=== PATIENT | male | born 1990 | race Caucasian/White ===

== ENCOUNTER 2017-08-06 14:50 | Inpatient (IN) ==
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
[2017-08-06] MEDS ORDERED: *HR* LORazepam 2 MG/ML VIAL IVP ONE (15:54)
[2017-08-06] MEDS ORDERED: Haloperidol Lactate 5 MG/ML VIAL IM ONE ×3 (15:54→16:03)
[2017-08-06] MEDS ORDERED: Haloperidol Lactate 5 MG/ML VIAL ONE (15:54)
[2017-08-06] MEDS ORDERED: *HR* LORazepam 2 MG/ML VIAL ONE (15:55)
[2017-08-06 15:58] LABS: Amphetamine Screen,Urine Negative ng/mL (Cutoff=1000); Barbiturate Screen,Urine Negative ng/mL (Cutoff=200); Benzodiazepines Screen,Urine Negative ng/mL (Cutoff=200); Cannabinoid Screen,Urine Positive ng/mL (Cutoff = 50); Cocaine Screen,Urine Negative ng/mL (Cutoff= 300); Opiate Screen,Urine Negative ng/mL (Cutoff=300); Phencyclidine Screen,Urine Negative ng/mL (Cutoff=25)
[2017-08-06] MEDS ORDERED: *HR* Ketamine 500 MG/5 ML MDV IVP ONE (15:59)
[2017-08-06] MEDS ORDERED: Ketamine *HR* 500 MG/10 ML MDV IM ONE ×2 (15:59→17:45)
[2017-08-06 16:04] LABS: Basophils % 0.3 %; Eosinophils % 0.2 %; Hematocrit 42.8 % (37.5-50.1); Hemoglobin 14.8 g/dL (12.9-16.9); Immature Granulocytes % 0.3 % (0-4); Lymphocytes # 1.2 K/mcL (0.6-4.6); Lymphocytes % 11.7 %; Mean Corpuscular HGB Conc 34.6 g/dL (31.6-35.5); Mean Corpuscular Hemoglobin 30.6 pg (28.0-33.3); Mean Corpuscular Volume 88.6 fL (83.0-100.0); Monocytes # 0.7 K/mcL (0.0-1.3); Monocytes % 6.8 %; Platelet Count 310 K/mcL (140-400); Red Blood Count 4.83 M/mcL (4.19-5.50); Red Cell Distribution Width 12.8 % (11.5-14.5); Segmented Neutrophils % 80.7 %
[2017-08-06 16:22] LABS: Acetaminophen < 10 mcg/mL (10-20)
[2017-08-06 16:29] LABS: BUN/Creatinine Ratio 21 (6-26); Blood Urea Nitrogen 15 mg/dL (6-20); Carbon Dioxide 25 mEq/L (23-29); Chloride 108 mEq/L (98-107); Ethanol < 10 mg/dL (Less than 10); Glucose 107 mg/dL (70-105); Osmolality,Calculated 295 (280-300); Potassium 3.5 mEq/L (3.5-5.1); Salicylate < 2.5 mg/dL (15.0-30.0); Sodium 142 mEq/L (136-145); eGFR For African Americans > 60 (> 60); eGFR For Non-African Americans > 60 (> 60)
[2017-08-06 16:30] LABS: Color,Urine Dark Yellow (Yellow)
[2017-08-06 16:31] LABS: Bilirubin,Urine Small (Negative); Blood,Urine Negative (Negative); Clarity,Urine Clear (Clear); Glucose,Urine (UA) Normal (Normal); Ketones,Urine 80 mg/dL (Negative); Specific Gravity,Urine > 1.030 (1.010-1.025)
[2017-08-06 16:32] LABS: Leukocyte Esterase,Urine Negative (Negative); Nitrite,Urine Negative (Negative); Protein,Urine 30 mg/dL (Neg-Trace); Urobilinogen,Urine Normal (Normal)
[2017-08-06 16:44] LABS: Mucus,Urine Many (Few); Squamous Epithelial Cell,Urine Few per lpf (None-Few)
[2017-08-06] MEDS ORDERED: *HR* Ketamine 500 MG/5 ML MDV IM ONE (17:27)
[2017-08-06] MEDS ORDERED: OLANZapine 10 MG TAB.RAPDIS PO STA (20:42)
--- NOTE | 2017-08-06 22:38 | Emergency Department Note ---
Disposition Clinical Impression: Hallucination Disposition: Still a Patient Referrals: NONE,PCP [Primary Care Provider] - Forms: ED Satisfaction Letter General Adult HPI - General Chief complaint: ED Medical Clearance Stated complaint: Medical Clearance for 1A Time Seen by Provider: 08/06/17 14:57 Source: patient Limitations: no limitations - History of Present Illness Pain Scale: 7 - Related Data Home Medications Medication Instructions Recorded Confirmed Gabapentin [Neurontin] 600 mg PO TID 06/04/17 06/04/17 Previous Rx's Medication Instructions Recorded OLANZapine [Zyprexa] 5 mg PO HS #30 tablet 06/06/17 hydrOXYzine pamoate [HydrOXYzine 25 mg PO TID PRN #90 capsule 06/06/17 Pamoate] traZODone [TraZODone] 50 mg PO HS PRN #30 tablet 06/06/17 Allergies Allergy/AdvReac Type Severity Reaction Status Date / Time No Known Allergies Allergy Verified 11/02/15 22:18 Past Medical History - Past Medical History Medical history: Reports: no medical history, fibromyalgia, hyperlipidemia Surgical history: Reports: herniorrhaphy Psychiatric history: Reports: no psych history - Social History Smoking Status: Current every day smoker Smokeless Tobacco Status: No Alcohol use: Reports: none Drug use: Reports: marijuana, methamphetamine Physical Exam - General Limitations: no limitations General appearance: alert, in no apparent distress Course Vital Signs Temperature 98.4 F 08/06/17 14:53 Pulse Rate 112 08/06/17 14:53 Respiratory Rate 18 08/06/17 14:53 Blood Pressure 151/86 08/06/17 14:53 O2 Sat by Pulse Oximetry 100 08/06/17 14:53 Temperature 98.4 F 08/06/17 14:53 Pulse Rate 108 08/06/17 19:43 Respiratory Rate 22 08/06/17 19:43 Blood Pressure 148/89 08/06/17 19:43 O2 Sat by Pulse Oximetry 97 08/06/17 19:43 Oxygen Delivery Oxygen Delivery Room Air Medical Decision Making - Lab Data Result diagrams: 08/06/17 15:35 08/06/17 15:35 Lab Results 08/06/17 08/06/17 08/06/17 Range/Units 15:30 15:30 15:35 WBC 9.9 (4.3-11.1) K/mcL RBC 4.83 (4.19-5.50) M/mcL Hgb 14.8 (12.9-16.9) g/dL Hct 42.8 (37.5-50.1) % MCV 88.6 (83.0-100.0) fL MCH 30.6 (28.0-33.3) pg MCHC 34.6 (31.6-35.5) g/dL RDW 12.8 (11.5-14.5) % Plt Count 310 (140-400) K/mcL MPV 10.0 (9.4-12.4) fL Immature Gran % 0.3 (0-4) % Seg Neutrophils % 80.7 % Lymphocytes % 11.7 % Monocytes % 6.8 % Eosinophils % 0.2 % Basophils % 0.3 % Neutrophils # 8.0 (1.6-8.9) K/mcL Lymphocytes # 1.2 (0.6-4.6) K/mcL Monocytes # 0.7 (0.0-1.3) K/mcL Eosinophils # 0.0 (0.0-0.6) K/mcL Basophils # 0.0 (0.0-0.2) K/mcL Sodium (136-145) mEq/L Potassium (3.5-5.1) mEq/L Chloride (98-107) mEq/L Carbon Dioxide (23-29) mEq/L BUN (6-20) mg/dL Creatinine (0.70-1.30) mg/dL Est GFR ( Amer) (> 60) Est GFR (Non-Af Amer) (> 60) BUN/Creatinine Ratio (6-26) Glucose (70-105) mg/dL Calculated Osmolality (280-300) Calcium (8.6-10.3) mg/dL Urine Color Dark Yellow (Yellow) Urine Clarity Clear (Clear) Urine pH 6.0 (5.0-8.0) pH Units Ur Specific [place] > 1.030 H (1.010-1.025) Urine Protein 30 H (Neg-Trace) mg/dL Urine Glucose (UA) Normal (Normal) mg/dL Urine Ketones 80 H (Negative) mg/dL Urine Blood Negative (Negative) Urine Nitrite Negative (Negative) Urine Bilirubin Small H (Negative) Urine Urobilinogen Normal (Normal) mg/dL Ur Leukocyte Esterase Negative (Negative) Ur Squamous Epith Cells Few (None-Few) per lpf Urine Mucus Many H (Few) Salicylates (15.0-30.0) mg/dL Urine Opiates Screen Negative (Rcbugf=162) ng/mL Acetaminophen (10-20) mcg/mL Ur Barbiturates Screen Negative (Vbzhsg=261) ng/mL Ur Phencyclidine Scrn Negative (Cutoff=25) ng/mL Ur Amphetamines Screen Negative (Ejdhkc=9747) ng/mL U Benzodiazepines Scrn Negative (Exvguc=143) ng/mL Urine Cocaine Screen Negative (Cutoff= 300) ng/mL U Marijuana (THC) Screen Positive H (Cutoff = 50) ng/mL Ethyl Alcohol (Less than 10) mg/dL 08/06/17 Range/Units 15:35 WBC (4.3-11.1) K/mcL RBC (4.19-5.50) M/mcL Hgb (12.9-16.9) g/dL Hct (37.5-50.1) % MCV (83.0-100.0) fL MCH (28.0-33.3) pg MCHC (31.6-35.5) g/dL RDW (11.5-14.5) % Plt Count (140-400) K/mcL MPV (9.4-12.4) fL Immature Gran % (0-4) % Seg Neutrophils % % Lymphocytes % % Monocytes % % Eosinophils % % Basophils % % Neutrophils # (1.6-8.9) K/mcL Lymphocytes # (0.6-4.6) K/mcL Monocytes # (0.0-1.3) K/mcL Eosinophils # (0.0-0.6) K/mcL Basophils # (0.0-0.2) K/mcL Sodium 142 (136-145) mEq/L Potassium 3.5 (3.5-5.1) mEq/L Chloride 108 H (98-107) mEq/L Carbon Dioxide 25 (23-29) mEq/L BUN 15 (6-20) mg/dL Creatinine 0.72 (0.70-1.30) mg/dL Est GFR ( Amer) > 60 (> 60) Est GFR (Non-Af Amer) > 60 (> 60) BUN/Creatinine Ratio 21 (6-26) Glucose 107 H (70-105) mg/dL Calculated Osmolality 295 (280-300) Calcium 10.0 (8.6-10.3) mg/dL Urine Color (Yellow) Urine Clarity (Clear) Urine pH (5.0-8.0) pH Units Ur Specific [place] (1.010-1.025) Urine Protein (Neg-Trace) mg/dL Urine Glucose (UA) (Normal) mg/dL Urine Ketones (Negative) mg/dL Urine Blood (Negative) Urine Nitrite (Negative) Urine Bilirubin (Negative) Urine Urobilinogen (Normal) mg/dL Ur Leukocyte Esterase (Negative) Ur Squamous Epith Cells (None-Few) per lpf Urine Mucus (Few) Salicylates < 2.5 L (15.0-30.0) mg/dL Urine Opiates Screen (Rhmgoc=659) ng/mL Acetaminophen < 10 L (10-20) mcg/mL Ur Barbiturates Screen (Iyvbed=619) ng/mL Ur Phencyclidine Scrn (Cutoff=25) ng/mL Ur Amphetamines Screen (Kowdsy=9401) ng/mL U Benzodiazepines Scrn (Zliafv=621) ng/mL Urine Cocaine Screen (Cutoff= 300) ng/mL U Marijuana (THC) Screen (Cutoff = 50) ng/mL Ethyl Alcohol < 10 (Less than 10) mg/dL Attestation Statement - Attestation Attestation: accepted sign out from Dr. Candelario and the plan is to continue to monitoring until 1A has given clearance. Patient is sleeping at bedside and is drowasy secondary to medication. 1A will be back later to evaluate
--- NOTE | 2017-08-06 22:46 | Emergency Department Note ---
Disposition Clinical Impression: Hallucination, Altered mental status Disposition: Still a Patient Condition: Good Referrals: NONE,PCP [Primary Care Provider] - Forms: ED Satisfaction Letter General Adult HPI - General Chief complaint: ED Medical Clearance Stated complaint: Medical Clearance for 1A Time Seen by Provider: 08/06/17 14:57 Source: patient Limitations: no limitations - History of Present Illness Pain Scale: 7 - Related Data Home Medications Medication Instructions Recorded Confirmed Gabapentin [Neurontin] 600 mg PO TID 06/04/17 06/04/17 Previous Rx's Medication Instructions Recorded OLANZapine [Zyprexa] 5 mg PO HS #30 tablet 06/06/17 hydrOXYzine pamoate [HydrOXYzine 25 mg PO TID PRN #90 capsule 06/06/17 Pamoate] traZODone [TraZODone] 50 mg PO HS PRN #30 tablet 06/06/17 Allergies Allergy/AdvReac Type Severity Reaction Status Date / Time No Known Allergies Allergy Verified 11/02/15 22:18 Past Medical History - Past Medical History Medical history: Reports: no medical history, fibromyalgia, hyperlipidemia Surgical history: Reports: herniorrhaphy Psychiatric history: Reports: no psych history - Social History Smoking Status: Current every day smoker Smokeless Tobacco Status: No Alcohol use: Reports: none Drug use: Reports: marijuana, methamphetamine Physical Exam - General Limitations: no limitations General appearance: alert, in no apparent distress Course Vital Signs Temperature 98.4 F 08/06/17 14:53 Pulse Rate 112 08/06/17 14:53 Respiratory Rate 18 08/06/17 14:53 Blood Pressure 151/86 08/06/17 14:53 O2 Sat by Pulse Oximetry 100 08/06/17 14:53 Temperature 98.4 F 08/06/17 14:53 Pulse Rate 91 08/07/17 05:53 Respiratory Rate 16 08/07/17 05:53 Blood Pressure 113/70 08/07/17 05:53 O2 Sat by Pulse Oximetry 97 08/07/17 05:53 Oxygen Delivery Oxygen Delivery Room Air Medical Decision Making - Lab Data Result diagrams: 08/06/17 15:35 08/06/17 15:35 Lab Results 08/06/17 08/06/17 08/06/17 Range/Units 15:30 15:30 15:35 WBC 9.9 (4.3-11.1) K/mcL RBC 4.83 (4.19-5.50) M/mcL Hgb 14.8 (12.9-16.9) g/dL Hct 42.8 (37.5-50.1) % MCV 88.6 (83.0-100.0) fL MCH 30.6 (28.0-33.3) pg MCHC 34.6 (31.6-35.5) g/dL RDW 12.8 (11.5-14.5) % Plt Count 310 (140-400) K/mcL MPV 10.0 (9.4-12.4) fL Immature Gran % 0.3 (0-4) % Seg Neutrophils % 80.7 % Lymphocytes % 11.7 % Monocytes % 6.8 % Eosinophils % 0.2 % Basophils % 0.3 % Neutrophils # 8.0 (1.6-8.9) K/mcL Lymphocytes # 1.2 (0.6-4.6) K/mcL Monocytes # 0.7 (0.0-1.3) K/mcL Eosinophils # 0.0 (0.0-0.6) K/mcL Basophils # 0.0 (0.0-0.2) K/mcL Sodium (136-145) mEq/L Potassium (3.5-5.1) mEq/L Chloride (98-107) mEq/L Carbon Dioxide (23-29) mEq/L BUN (6-20) mg/dL Creatinine (0.70-1.30) mg/dL Est GFR ( Amer) (> 60) Est GFR (Non-Af Amer) (> 60) BUN/Creatinine Ratio (6-26) Glucose (70-105) mg/dL Calculated Osmolality (280-300) Calcium (8.6-10.3) mg/dL Urine Color Dark Yellow (Yellow) Urine Clarity Clear (Clear) Urine pH 6.0 (5.0-8.0) pH Units Ur Specific [place] > 1.030 H (1.010-1.025) Urine Protein 30 H (Neg-Trace) mg/dL Urine Glucose (UA) Normal (Normal) mg/dL Urine Ketones 80 H (Negative) mg/dL Urine Blood Negative (Negative) Urine Nitrite Negative (Negative) Urine Bilirubin Small H (Negative) Urine Urobilinogen Normal (Normal) mg/dL Ur Leukocyte Esterase Negative (Negative) Ur Squamous Epith Cells Few (None-Few) per lpf Urine Mucus Many H (Few) Salicylates (15.0-30.0) mg/dL Urine Opiates Screen Negative (Ykzeyn=843) ng/mL Acetaminophen (10-20) mcg/mL Ur Barbiturates Screen Negative (Gozced=424) ng/mL Ur Phencyclidine Scrn Negative (Cutoff=25) ng/mL Ur Amphetamines Screen Negative (Bfnzhs=4510) ng/mL U Benzodiazepines Scrn Negative (Kelvhd=902) ng/mL Urine Cocaine Screen Negative (Cutoff= 300) ng/mL U Marijuana (THC) Screen Positive H (Cutoff = 50) ng/mL Ethyl Alcohol (Less than 10) mg/dL 08/06/17 Range/Units 15:35 WBC (4.3-11.1) K/mcL RBC (4.19-5.50) M/mcL Hgb (12.9-16.9) g/dL Hct (37.5-50.1) % MCV (83.0-100.0) fL MCH (28.0-33.3) pg MCHC (31.6-35.5) g/dL RDW (11.5-14.5) % Plt Count (140-400) K/mcL MPV (9.4-12.4) fL Immature Gran % (0-4) % Seg Neutrophils % % Lymphocytes % % Monocytes % % Eosinophils % % Basophils % % Neutrophils # (1.6-8.9) K/mcL Lymphocytes # (0.6-4.6) K/mcL Monocytes # (0.0-1.3) K/mcL Eosinophils # (0.0-0.6) K/mcL Basophils # (0.0-0.2) K/mcL Sodium 142 (136-145) mEq/L Potassium 3.5 (3.5-5.1) mEq/L Chloride 108 H (98-107) mEq/L Carbon Dioxide 25 (23-29) mEq/L BUN 15 (6-20) mg/dL Creatinine 0.72 (0.70-1.30) mg/dL Est GFR ( Amer) > 60 (> 60) Est GFR (Non-Af Amer) > 60 (> 60) BUN/Creatinine Ratio 21 (6-26) Glucose 107 H (70-105) mg/dL Calculated Osmolality 295 (280-300) Calcium 10.0 (8.6-10.3) mg/dL Urine Color (Yellow) Urine Clarity (Clear) Urine pH (5.0-8.0) pH Units Ur Specific [place] (1.010-1.025) Urine Protein (Neg-Trace) mg/dL Urine Glucose (UA) (Normal) mg/dL Urine Ketones (Negative) mg/dL Urine Blood (Negative) Urine Nitrite (Negative) Urine Bilirubin (Negative) Urine Urobilinogen (Normal) mg/dL Ur Leukocyte Esterase (Negative) Ur Squamous Epith Cells (None-Few) per lpf Urine Mucus (Few) Salicylates < 2.5 L (15.0-30.0) mg/dL Urine Opiates Screen (Qbhouz=161) ng/mL Acetaminophen < 10 L (10-20) mcg/mL Ur Barbiturates Screen (Rfqdra=294) ng/mL Ur Phencyclidine Scrn (Cutoff=25) ng/mL Ur Amphetamines Screen (Jnbvrh=2160) ng/mL U Benzodiazepines Scrn (Cgyzcf=961) ng/mL Urine Cocaine Screen (Cutoff= 300) ng/mL U Marijuana (THC) Screen (Cutoff = 50) ng/mL Ethyl Alcohol < 10 (Less than 10) mg/dL Attestation Statement - Attestation Attestation: I examined this patient and my medical decision-making was reviewed with the Resident Physician, Dr. Chavez. I agree with the documented findings, disposition and treatment plan as described except to the extent set forth below. Patient is a 26-year-old white male with no prior psychiatric history who is brought in by police today after a manager sales deemed him a threat to himself and would benefit from possible inpatient psychiatric evaluation with pink slipped signed. According to the patient's mom he does have a remote history of substance abuse but has not used drugs in the past year and half. She does not feel that he has relapsed. Apparently he had run away from home and was missing for a period of about a day and a half and then was found arguing with his brother. Patient is having auditory hallucinations, delusions, he denies any suicidal or homicidal ideation. Patient was extremely agitated on arrival requiring both physical and chemical restraints. I agree with patient's physical exam findings as documented. Vital signs are stable. Patient had lab evaluation for medical clearance for further psychiatric evaluation. All of patient's workup up to this point was unremarkable and he was deemed medically clear for further psychiatric evaluation. Due to the requirement of repeated chemical restraint, we are unable to obtain an accurate psychiatric assessment at this time. When he has been notified throughout the afternoon and evening and we also discussed the case personally with the psychiatrist on-call Dr. Perez. He most recently requested we give a dose of Zdis, and reevaluate and an hour to by the morning nurse. The when a nurse just came to assess the patient but he was still very drowsy and unable to obtain accurate history at this time. We will sign the patient out to the slope tender team and Dr. Mensah for repeat evaluation, one a assessment and evaluation and final disposition. A pink slip has been signed and placed on the patient's chart.
--- NOTE | 2017-08-07 07:14 | Emergency Department Note ---
Disposition Clinical Impression: Hallucination Altered mental status Qualifiers: Altered mental status type: unspecified Qualified Code(s): R41.82 - Altered mental status, unspecified Disposition: Admitted As Inpatient Condition: Good Time of Disposition: 15:33 General Adult HPI - General Chief complaint: ED Medical Clearance Stated complaint: Medical Clearance for 1A Time Seen by Provider: 08/06/17 14:57 Source: patient Limitations: no limitations - History of Present Illness Pain Scale: 0 - Related Data Home Medications Medication Instructions Recorded Confirmed Gabapentin [Neurontin] 600 mg PO TID 06/04/17 08/07/17 Previous Rx's Medication Instructions Recorded OLANZapine [Zyprexa] 5 mg PO HS #30 tablet 06/06/17 hydrOXYzine pamoate [HydrOXYzine 25 mg PO TID PRN #90 capsule 06/06/17 Pamoate] traZODone [TraZODone] 50 mg PO HS PRN #30 tablet 06/06/17 Allergies Allergy/AdvReac Type Severity Reaction Status Date / Time No Known Allergies Allergy Verified 11/02/15 22:18 Past Medical History - Past Medical History Medical history: Reports: no medical history, fibromyalgia, hyperlipidemia Surgical history: Reports: herniorrhaphy Psychiatric history: Reports: no psych history - Social History Smoking Status: Current every day smoker Smokeless Tobacco Status: No Alcohol use: Reports: none Drug use: Reports: marijuana, methamphetamine Physical Exam - General Limitations: no limitations General appearance: alert, in no apparent distress Course - Reevaluation(s) Reevaluation #1: Assuming care of patient from production shift supervisor. Patient has been here for a day. [place] to be having a psychotic break. He has had to be physically and chemically restrain multiple times. He was given Zyprexa last night and is now sleeping comfortably. We will continue to monitor. Time: 07:13 Reevaluation #2: Discussed with Elle. They are working on placement in [place] versus keeping here. Time: 13:07 Vital Signs Temperature 98.4 F 08/06/17 14:53 Pulse Rate 112 08/06/17 14:53 Respiratory Rate 18 08/06/17 14:53 Blood Pressure 151/86 08/06/17 14:53 O2 Sat by Pulse Oximetry 100 08/06/17 14:53 Temperature 98.4 F 08/06/17 14:53 Pulse Rate 91 08/07/17 05:53 Respiratory Rate 16 08/07/17 05:53 Blood Pressure 113/70 08/07/17 05:53 O2 Sat by Pulse Oximetry 97 08/07/17 05:53 Oxygen Delivery Oxygen Delivery Room Air Medical Decision Making - Lab Data Result diagrams: 08/06/17 15:35 08/06/17 15:35 Lab Results 08/06/17 08/06/17 08/06/17 Range/Units 15:30 15:30 15:35 WBC 9.9 (4.3-11.1) K/mcL RBC 4.83 (4.19-5.50) M/mcL Hgb 14.8 (12.9-16.9) g/dL Hct 42.8 (37.5-50.1) % MCV 88.6 (83.0-100.0) fL MCH 30.6 (28.0-33.3) pg MCHC 34.6 (31.6-35.5) g/dL RDW 12.8 (11.5-14.5) % Plt Count 310 (140-400) K/mcL MPV 10.0 (9.4-12.4) fL Immature Gran % 0.3 (0-4) % Seg Neutrophils % 80.7 % Lymphocytes % 11.7 % Monocytes % 6.8 % Eosinophils % 0.2 % Basophils % 0.3 % Neutrophils # 8.0 (1.6-8.9) K/mcL Lymphocytes # 1.2 (0.6-4.6) K/mcL Monocytes # 0.7 (0.0-1.3) K/mcL Eosinophils # 0.0 (0.0-0.6) K/mcL Basophils # 0.0 (0.0-0.2) K/mcL Sodium (136-145) mEq/L Potassium (3.5-5.1) mEq/L Chloride (98-107) mEq/L Carbon Dioxide (23-29) mEq/L BUN (6-20) mg/dL Creatinine (0.70-1.30) mg/dL Est GFR ( Amer) (> 60) Est GFR (Non-Af Amer) (> 60) BUN/Creatinine Ratio (6-26) Glucose (70-105) mg/dL Calculated Osmolality (280-300) Calcium (8.6-10.3) mg/dL Urine Color Dark Yellow (Yellow) Urine Clarity Clear (Clear) Urine pH 6.0 (5.0-8.0) pH Units Ur Specific [place] > 1.030 H (1.010-1.025) Urine Protein 30 H (Neg-Trace) mg/dL Urine Glucose (UA) Normal (Normal) mg/dL Urine Ketones 80 H (Negative) mg/dL Urine Blood Negative (Negative) Urine Nitrite Negative (Negative) Urine Bilirubin Small H (Negative) Urine Urobilinogen Normal (Normal) mg/dL Ur Leukocyte Esterase Negative (Negative) Ur Squamous Epith Cells Few (None-Few) per lpf Urine Mucus Many H (Few) Salicylates (15.0-30.0) mg/dL Urine Opiates Screen Negative (Mffuxe=369) ng/mL Acetaminophen (10-20) mcg/mL Ur Barbiturates Screen Negative (Ybbsko=264) ng/mL Ur Phencyclidine Scrn Negative (Cutoff=25) ng/mL Ur Amphetamines Screen Negative (Bffplg=5848) ng/mL U Benzodiazepines Scrn Negative (Ywlasl=428) ng/mL Urine Cocaine Screen Negative (Cutoff= 300) ng/mL U Marijuana (THC) Screen Positive H (Cutoff = 50) ng/mL Ethyl Alcohol (Less than 10) mg/dL 08/06/17 Range/Units 15:35 WBC (4.3-11.1) K/mcL RBC (4.19-5.50) M/mcL Hgb (12.9-16.9) g/dL Hct (37.5-50.1) % MCV (83.0-100.0) fL MCH (28.0-33.3) pg MCHC (31.6-35.5) g/dL RDW (11.5-14.5) % Plt Count (140-400) K/mcL MPV (9.4-12.4) fL Immature Gran % (0-4) % Seg Neutrophils % % Lymphocytes % % Monocytes % % Eosinophils % % Basophils % % Neutrophils # (1.6-8.9) K/mcL Lymphocytes # (0.6-4.6) K/mcL Monocytes # (0.0-1.3) K/mcL Eosinophils # (0.0-0.6) K/mcL Basophils # (0.0-0.2) K/mcL Sodium 142 (136-145) mEq/L Potassium 3.5 (3.5-5.1) mEq/L Chloride 108 H (98-107) mEq/L Carbon Dioxide 25 (23-29) mEq/L BUN 15 (6-20) mg/dL Creatinine 0.72 (0.70-1.30) mg/dL Est GFR ( Amer) > 60 (> 60) Est GFR (Non-Af Amer) > 60 (> 60) BUN/Creatinine Ratio 21 (6-26) Glucose 107 H (70-105) mg/dL Calculated Osmolality 295 (280-300) Calcium 10.0 (8.6-10.3) mg/dL Urine Color (Yellow) Urine Clarity (Clear) Urine pH (5.0-8.0) pH Units Ur Specific [place] (1.010-1.025) Urine Protein (Neg-Trace) mg/dL Urine Glucose (UA) (Normal) mg/dL Urine Ketones (Negative) mg/dL Urine Blood (Negative) Urine Nitrite (Negative) Urine Bilirubin (Negative) Urine Urobilinogen (Normal) mg/dL Ur Leukocyte Esterase (Negative) Ur Squamous Epith Cells (None-Few) per lpf Urine Mucus (Few) Salicylates < 2.5 L (15.0-30.0) mg/dL Urine Opiates Screen (Rslfnl=910) ng/mL Acetaminophen < 10 L (10-20) mcg/mL Ur Barbiturates Screen (Medffk=211) ng/mL Ur Phencyclidine Scrn (Cutoff=25) ng/mL Ur Amphetamines Screen (Iyklhu=5651) ng/mL U Benzodiazepines Scrn (Csfbxr=408) ng/mL Urine Cocaine Screen (Cutoff= 300) ng/mL U Marijuana (THC) Screen (Cutoff = 50) ng/mL Ethyl Alcohol < 10 (Less than 10) mg/dL
[2017-08-07] MEDS ORDERED: *HR* LORazepam 2 MG/ML VIAL IM ONE (14:35)
[2017-08-07] MEDS ORDERED: Haloperidol Lactate 5 MG/ML VIAL IM ONE (14:35)
[2017-08-07] MEDS ORDERED: *HR* LORazepam 1 MG TABLET PO PRN (15:25)
[2017-08-07] MEDS ORDERED: MOM Conc 10 ML UD.LIQ PO PRN (15:25)
[2017-08-07] MEDS ORDERED: Mag Hydrox/Al Hydrox/Simeth 30 ML UDC PO PRN (15:25)
[2017-08-07] MEDS: *HR* LORazepam 2 MG/ML VIAL IM PRN (20:00)
[2017-08-07] MEDS: Haloperidol Lactate 5 MG/ML VIAL IM PRN (20:00)
[2017-08-07] MEDS ORDERED: OLANZapine 5 MG TAB.RAPDIS PO SCH (21:00)
[2017-08-08] MEDS: OLANZapine 5 MG TAB.RAPDIS PO SCH ×2 (11:04→21:09)
--- NOTE | 2017-08-08 11:27 | Psychiatry History & Physical ---
Date of Encounter: 08/08/17 Time of Encounter: 10:00 History of Present Illness Patient Stated Chief Complaint: i am anxious to go home Medicare Admission Attestation: For traditional Medicare patients the provided hospital inpatient services are reasonable and necessary and in the case of services not specified as inpatient -only under 42 CFR 419.22 (n), that they are appropriately provided as inpatient services in accordance 42 CFR 412.3. For Critical Access Hospital the patient may reasonably be expected to be discharged or transferred to a hospital within 96 hours after admission to the Critical Access Hospital. Admitted From: Emergency Dept Plans for Post Hospital Care: Home History of Present Illness: Mr. Gould is a 26 year old male as per noted from ED Mr. Gould, 18-year-old male. Patient was arrested after fighting with his brother for reasons unknown to the patient. With for the label machine operator, he was given the option of psychiatric evaluation or detention. Patient chose psychiatric evaluation. He has no acute complaints other then his left great toe that is itchy. CC: I am anxious to get out. police bought me here because i had little trouble with my brother. HPI Patient has h/o psychosis an substance use disorder , he has been treated for short term in inpatient , he at present was evaluated . He does not want to sign in and wants to leave because he has to go to get his hernia be examined , he does not feel he needs to be here because he just came here as me and my brother had fight.he does not remember his combative behaviour and his being restraint in ED. He at present is preoccupied with his hernia , he has had it repaired and it has been recalled and he wants to find out, his hernia has been looked several times, he had his eyes closed mostly during his session. he has had bizzare behaviors, like he ate page of bible and licked his mothers purse in ER to know the taste of leather. he stated "I have spirit with me , i can smell wagoner" he feels bad energy here and thats why he wants to leave.he sees bad and good spirit. Patient has multiple abrasions on his head and he states he got this from fight with his brother , but was running in [place] and was confused and was lying by train tracks. he denies any drug use , drug screen positive , states if coffee is drug then i use drug. Family h/o brother and sister have sustance use disorder and has been admitted to mEDICALLY STABLE. S/O HERNIA REPAIR ONLEFT SIDE. Patient at present not willing to sign in , he has refused medication was agitated last night and given prn medications. He is psychotic and has poor judgement and insight . he has detoriated in last year and needs inpatient stabilization for Acute psychosis, combative and agitated behaviour. Past Med Surg Social Fam HX - Past Medical History Medical history: no medical history, fibromyalgia, hyperlipidemia - Past Psychiatric History Psychiatric history: Reports: previous psychiatric hospitalization, other Family psychiatric history: Yes Family History of Suicide: None - Past Surgical History Surgical History: herniorrhaphy - Social History Smoking Status: Current every day smoker Smokeless Tobacco Status: No Alcohol use: none Drug use: marijuana, methamphetamine Medications & Allergies Gabapentin [Neurontin] 600 mg PO TID 06/04/17 [History] OLANZapine [Zyprexa] 5 mg PO HS #30 tablet 06/06/17 [Rx] hydrOXYzine pamoate [HydrOXYzine Pamoate] 25 mg PO TID PRN #90 capsule 06/06/17 [Rx] traZODone [TraZODone] 50 mg PO HS PRN #30 tablet 06/06/17 [Rx] 3 Allergy/AdvReac Type Severity Reaction Status Date / Time No Known Allergies Allergy Verified 11/02/15 22:18 Review of Systems Psychiatric: Reports: auditory hallucinations, irritability, mood swings, other (patient has acute psychosis and delusional ) Exam - HEENT Head exam IM: Present: atraumatic (has some abrasions on his head and arms) Eye exam IM: Present: EOMI, normal appearance, PERRL ENT exam IM: Present: normal exam - Neurological Neurological exam: Present: CN II-XII intact - Respiratory Respiratory exam IM: Present: CTAB - GI/Abdominal GI/Abdominal exam IM: Present: normal bowel sounds, soft. Absent: tenderness - Extremities Extremities exam IM: Present: full ROM - Constitutional Vitals: Temp Pulse Resp BP Pulse Ox 98.4 F 91 16 113/70 97 08/06/17 14:53 08/07/17 05:53 08/07/17 05:53 08/07/17 05:53 08/07/17 05:53 General appearance: age & developmentally appropriate, well-groomed, well- nourished - Musculoskeletal Gait: normal Station: bizarre mannerisms Strength & Tone: normal for patient - Psychiatric Patient Orientation: Yes Person, Yes Place Level of alertness: Alert Behavior: restless, uncooperative, distractible Psychomotor activity: Agitated Eye Contact: Avoids Eye Contact Mood Description: Anxious, Irritable Affect description: constricted Speech Volume: Normal Speech pattern: disorganized Language & Vocabulary: consistent with education Thought Process: Tangential, Disorganized Thought Content: Yes Preoccupation, Yes Sikhism delusion Perceptual Disturbances: Yes Auditory hallucinations, Yes Visual hallucinations Attention Span Ability: Unable to Sustain Attention Memory Description: Grossly Intact Patient Reliability: Questionable Historian Fund of knowledge: Yes abstraction ability Intelligence Estimate: Average Judgment: Limited Insight: Minimal Results - Labs Labs: Laboratory Last Values WBC 9.9 K/mcL (4.3-11.1) 08/06/17 15:35 RBC 4.83 M/mcL (4.19-5.50) 08/06/17 15:35 Hgb 14.8 g/dL (12.9-16.9) 08/06/17 15:35 Hct 42.8 % (37.5-50.1) 08/06/17 15:35 MCV 88.6 fL (83.0-100.0) 08/06/17 15:35 MCH 30.6 pg (28.0-33.3) 08/06/17 15:35 MCHC 34.6 g/dL (31.6-35.5) 08/06/17 15:35 RDW 12.8 % (11.5-14.5) 08/06/17 15:35 Plt Count 310 K/mcL (140-400) 08/06/17 15:35 MPV 10.0 fL (9.4-12.4) 08/06/17 15:35 Immature Gran % 0.3 % (0-4) 08/06/17 15:35 Seg Neutrophils % 80.7 % 08/06/17 15:35 Lymphocytes % 11.7 % 08/06/17 15:35 Monocytes % 6.8 % 08/06/17 15:35 Eosinophils % 0.2 % 08/06/17 15:35 Basophils % 0.3 % 08/06/17 15:35 Neutrophils # 8.0 K/mcL (1.6-8.9) 08/06/17 15:35 Lymphocytes # 1.2 K/mcL (0.6-4.6) 08/06/17 15:35 Monocytes # 0.7 K/mcL (0.0-1.3) 08/06/17 15:35 Eosinophils # 0.0 K/mcL (0.0-0.6) 08/06/17 15:35 Basophils # 0.0 K/mcL (0.0-0.2) 08/06/17 15:35 Sodium 142 mEq/L (136-145) 08/06/17 15:35 Potassium 3.5 mEq/L (3.5-5.1) 08/06/17 15:35 Chloride 108 mEq/L (98-107) H 08/06/17 15:35 Carbon Dioxide 25 mEq/L (23-29) 08/06/17 15:35 BUN 15 mg/dL (6-20) 08/06/17 15:35 Creatinine 0.72 mg/dL (0.70-1.30) 08/06/17 15:35 Est GFR ( Amer) > 60 (> 60) 08/06/17 15:35 Est GFR (Non-Af Amer) > 60 (> 60) 08/06/17 15:35 BUN/Creatinine Ratio 21 (6-26) 08/06/17 15:35 Glucose 107 mg/dL (70-105) H 08/06/17 15:35 Calculated Osmolality 295 (280-300) 08/06/17 15:35 Calcium 10.0 mg/dL (8.6-10.3) 08/06/17 15:35 Urine Color Dark Yellow (Yellow) 08/06/17 15:30 Urine Clarity Clear (Clear) 08/06/17 15:30 Urine pH 6.0 pH Units (5.0-8.0) 08/06/17 15:30 Ur Specific [place] > 1.030 (1.010-1.025) H 08/06/17 15:30 Urine Protein 30 mg/dL (Neg-Trace) H 08/06/17 15:30 Urine Glucose (UA) Normal mg/dL (Normal) 08/06/17 15:30 Urine Ketones 80 mg/dL (Negative) H 08/06/17 15:30 Urine Blood Negative (Negative) 08/06/17 15:30 Urine Nitrite Negative (Negative) 08/06/17 15:30 Urine Bilirubin Small (Negative) H 08/06/17 15:30 Urine Urobilinogen Normal mg/dL (Normal) 08/06/17 15:30 Ur Leukocyte Esterase Negative (Negative) 08/06/17 15:30 Ur Squamous Epith Cells Few per lpf (None-Few) 08/06/17 15:30 Urine Mucus Many (Few) H 08/06/17 15:30 Salicylates < 2.5 mg/dL (15.0-30.0) L 08/06/17 15:35 Urine Opiates Screen Negative ng/mL (Sdchry=786) 08/06/17 15:30 Acetaminophen < 10 mcg/mL (10-20) L 08/06/17 15:35 Ur Barbiturates Screen Negative ng/mL (Cvhumh=458) 08/06/17 15:30 Ur Phencyclidine Scrn Negative ng/mL (Cutoff=25) 08/06/17 15:30 Ur Amphetamines Screen Negative ng/mL (Aknsql=4463) 08/06/17 15:30 U Benzodiazepines Scrn Negative ng/mL (Fqksdh=844) 08/06/17 15:30 Urine Cocaine Screen Negative ng/mL (Cutoff= 300) 08/06/17 15:30 U Marijuana (THC) Screen Positive ng/mL (Cutoff = 50) H 08/06/17 15:30 Ethyl Alcohol < 10 mg/dL (Less than 10) 08/06/17 15:35 Assessment and Plan (1) Schizophreniform disorder Current visit: Yes Status: Acute Plan: Admit inpatient for safety and stabilization, Close observation, Suicide Precautions per unit protocol, Encourage participation in unit milieu, Group Therapy, Monitor sleep, Monitor appetite, Family/Supportive other meeting Risks, benefits, side effects, alternatives discussed w/pt: Yes Patient agreeable to treatment: Yes Plans for Post Hospital Care: at Home (2) Drug-induced psychotic disorder Current visit: No Status: Acute Plan: Admit inpatient for safety and stabilization, Close observation, Suicide Precautions per unit protocol, Encourage participation in unit milieu, Group Therapy, Monitor sleep, Monitor appetite, Family/Supportive other meeting, Other Risks, benefits, side effects, alternatives discussed w/pt: Yes Patient agreeable to treatment: Yes Plans for Post Hospital Care: Home Estimated Length of Stay (Days): 5 Qualifiers: Complication of substance-induced condition: with delusions Qualified Code( s): F19.950 - Other psychoactive substance use, unspecified with psychoactive substance-induced psychotic disorder with delusions
[2017-08-08] MEDS: hydrOXYzine pamoate 25 MG CAPSULE PO PRN (21:09)
[2017-08-09] MEDS: OLANZapine 5 MG TAB.RAPDIS PO SCH (08:48)
[2017-08-09] MEDS: hydrOXYzine pamoate 25 MG CAPSULE PO PRN (09:02)
[2017-08-09] MEDS: risperiDONE 1 MG TABLET PO SCH ×2 (12:20→20:37)
--- NOTE | 2017-08-09 13:25 | Psychiatry Progress Note ---
Date of Encounter: 08/09/17 Time of Encounter: 12:50 Subjective Interval history: Patient seen today case d/w treatment team. As per staff he popped allover his room this morning. He said i really learned here and i am ready to go home. He remains restless moving in the room sitiing from one chair to other stating he likes to do it. he did sleep good as per him. he was given zyprexa before also but it does not seem to help him much will change to risperdal 1 mg bid and cogentin 1 mg bid. as he has h/o non compliance and canbe given risperdal consta. he is wearing one sock and when asked why he said i am trying to counter balance , smiling and laughing inappropiately. Today I am not afraid to look at you as has good spirit around. he has tangential and disorganized thought process, " May be i need peace of mind and do not need to worry about money" i told him he is not ready for discharge yet and he was upset. Review of Systems Psychiatric: Reports: auditory hallucinations, irritability, mood swings, other (patient has acute psychosis and delusional ) Results - Vital Signs Vital Signs: Temp Pulse Resp BP Pulse Ox 98.3 F 98 18 130/92 97 08/09/17 09:00 08/09/17 09:00 08/09/17 09:00 08/09/17 09:00 08/07/17 05:53 Assessment and Plan (1) Schizophreniform disorder Current visit: Yes Status: Acute Risks, benefits, side effects, alternatives discussed w/pt: Yes Patient agreeable to treatment: Yes (2) Drug-induced psychotic disorder Current visit: No Status: Acute Risks, benefits, side effects, alternatives discussed w/pt: Yes Patient agreeable to treatment: Yes Qualifiers: Complication of substance-induced condition: with delusions Qualified Code( s): F19.950 - Other psychoactive substance use, unspecified with psychoactive substance-induced psychotic disorder with delusions Consult Discharge Plan - Plan Referrals: NONE,PCP [Primary Care Provider] - Psychiatry Exam - Constitutional Vitals: Temp Pulse Resp BP Pulse Ox 98.3 F 98 18 130/92 97 08/09/17 09:00 08/09/17 09:00 08/09/17 09:00 08/09/17 09:00 08/07/17 05:53 General appearance: age & developmentally appropriate, well-groomed, well- nourished - Musculoskeletal Gait: normal Station: other Strength & Tone: normal for patient - Psychiatric Patient Orientation: Yes Person, Yes Time, Yes Place Level of alertness: Alert Behavior: restless, distractible Psychomotor activity: Increased Eye Contact: Minimal Contact Mood Description: Anxious, Expansive Affect description: inappropriate to situation Speech Volume: Excessive Variation Speech pattern: disorganized Language & Vocabulary: consistent with education Thought Process: Tangential, Disorganized Thought Content: Yes Preoccupation, Yes Zoroastrian delusion Perceptual Disturbances: Yes Reacting to internal stimuli, No Auditory hallucinations, No Visual hallucinations Attention Span Ability: Unable to Sustain Attention Memory Description: Grossly Intact Patient Reliability: Questionable Historian Intelligence Estimate: Average Judgment: Limited Insight: Minimal
[2017-08-09] MEDS: *HR* LORazepam 2 MG/ML VIAL IM PRN (20:20)
[2017-08-09] MEDS: Haloperidol Lactate 5 MG/ML VIAL IM PRN (20:22)
[2017-08-10] MEDS: risperiDONE 1 MG TABLET PO SCH ×2 (08:18→22:07)
--- NOTE | 2017-08-10 11:48 | Psychiatry Progress Note ---
Date of Encounter: 08/10/17 Time of Encounter: 11:20 Subjective Interval history: Patient seen today case d/w treatment team. Patient had been agitated last night and was medicated then he calmed down and slept. He had been doing push ups so his breathing is better and lungs stronger. I really want to go home today , my mother will come and pick me up. He remains delusional and disorganized thought process, i want to go out and smell wagoner, i am taking my meds and drinking choclate milk so i go home today. my dad drinks coffee and i am worried about him, he has derailement and states i want to get out from here therefore i was upset last night. the mesh inside me is made of pig stuff and that is not good for you. he is now given po prn zydis and will continue invega and increase to 6 mg tomorrow and then invega sustenna for compliance and his psychosis. denies side effects, continue stabilization. Review of Systems Psychiatric: Reports: auditory hallucinations, irritability, mood swings, other (patient has acute psychosis and delusional ) Results - Vital Signs Vital Signs: Temp Pulse Resp BP Pulse Ox 98.7 F 94 18 126/92 97 08/10/17 09:00 08/10/17 09:00 08/10/17 09:00 08/10/17 09:00 08/07/17 05:53 Assessment and Plan (1) Schizophreniform disorder Current visit: Yes Status: Acute Risks, benefits, side effects, alternatives discussed w/pt: Yes Patient agreeable to treatment: Yes (2) Drug-induced psychotic disorder Current visit: No Status: Acute Risks, benefits, side effects, alternatives discussed w/pt: Yes Patient agreeable to treatment: Yes Qualifiers: Complication of substance-induced condition: with delusions Qualified Code( s): F19.950 - Other psychoactive substance use, unspecified with psychoactive substance-induced psychotic disorder with delusions Consult Discharge Plan - Plan Referrals: NONE,PCP [Primary Care Provider] - Psychiatry Exam - Constitutional Vitals: Temp Pulse Resp BP Pulse Ox 98.7 F 94 18 126/92 97 08/10/17 09:00 08/10/17 09:00 08/10/17 09:00 08/10/17 09:00 08/07/17 05:53 General appearance: disheveled, thin - Musculoskeletal Gait: normal Station: relaxed Strength & Tone: normal for patient - Psychiatric Patient Orientation: Yes Person, Yes Time, Yes Place Level of alertness: Alert Behavior: anxious, distractible Psychomotor activity: Increased Eye Contact: Minimal Contact Mood Description: Anxious Affect description: constricted Speech Volume: Normal Speech pattern: excessive Thought Process: Tangential, Disorganized, Racing Thought Content: Yes Cheondoism delusion Perceptual Disturbances: Yes Reacting to internal stimuli Attention Span Ability: Unable to Sustain Attention Memory Description: Grossly Intact Patient Reliability: Reliable Historian Fund of knowledge: Yes abstraction ability, Yes aware of current events Intelligence Estimate: Average Judgment: Limited Insight: Minimal
[2017-08-10] MEDS ORDERED: *HR* LORazepam 0.5 MG TABLET PO PRN (14:39)
[2017-08-10] MEDS: Ibuprofen 400 MG TABLET PO PRN (20:01)
[2017-08-10] MEDS: *HR* LORazepam 0.5 MG TABLET PO SCH (22:07)
[2017-08-11] MEDS: *HR* LORazepam 0.5 MG TABLET PO SCH ×3 (09:09→21:00)
[2017-08-11] MEDS: risperiDONE 1 MG TABLET PO SCH ×2 (09:10→20:58)
--- NOTE | 2017-08-11 14:26 | Psychiatry Progress Note ---
Date of Encounter: 08/11/17 Time of Encounter: 14:00 Subjective Interval history: Patient seen today , case d/w staff , he remains being psychotic and doing bizzare behaviours and confused on and off. he states i can breath now and start breathing heavy in session somewhat dishelved and talking fast and focused on his discharge. he is just rubbing his head, i do not want to spend any more time here. he has been delusional and pre occupied with spirits. "i keep my distance from negativity , zain is right , gave me paper stating I love zain with 3 exclamation wallace. i do every thing in 3 dc is the case." our body is episcopal . denies side effects. Review of Systems Psychiatric: Reports: auditory hallucinations, irritability, mood swings, other (patient has acute psychosis and delusional ) Results - Vital Signs Vital Signs: Temp Pulse Resp BP Pulse Ox 98.7 F 69 18 148/88 97 08/11/17 08:58 08/11/17 08:58 08/11/17 08:58 08/11/17 08:58 08/07/17 05:53 Assessment and Plan (1) Schizophreniform disorder Current visit: Yes Status: Acute Plan: Continue hospitalization, Close observation, Suicide Precautions per unit protocol, Encourage participation in unit milieu, Group Therapy, Monitor sleep, Monitor appetite, Family/Supportive other meeting Risks, benefits, side effects, alternatives discussed w/pt: Yes Patient agreeable to treatment: Yes (2) Drug-induced psychotic disorder Current visit: No Status: Acute Risks, benefits, side effects, alternatives discussed w/pt: Yes Patient agreeable to treatment: Yes Qualifiers: Complication of substance-induced condition: with delusions Qualified Code( s): F19.950 - Other psychoactive substance use, unspecified with psychoactive substance-induced psychotic disorder with delusions Consult Discharge Plan - Plan Referrals: NONE,PCP [Primary Care Provider] - Psychiatry Exam - Constitutional Vitals: Temp Pulse Resp BP Pulse Ox 98.7 F 69 18 148/88 97 08/11/17 08:58 08/11/17 08:58 08/11/17 08:58 08/11/17 08:58 08/07/17 05:53 General appearance: age & developmentally appropriate, well-groomed, well- nourished - Musculoskeletal Gait: normal Station: relaxed Strength & Tone: normal for patient - Psychiatric Patient Orientation: Yes Person, Yes Time, Yes Place Level of alertness: Alert Behavior: anxious, restless Psychomotor activity: Increased Eye Contact: Minimal Contact Mood Description: Anxious Affect description: blunted Speech Volume: Normal Speech pattern: disorganized Language & Vocabulary: consistent with education Thought Process: Tangential, Disorganized Thought Content: Yes Lutheran delusion Attention Span Ability: Unable to Sustain Attention Memory Description: Grossly Intact Patient Reliability: Reliable Historian Fund of knowledge: Yes abstraction ability, Yes aware of current events Intelligence Estimate: Average Judgment: Limited Insight: Minimal
[2017-08-12] MEDS: risperiDONE 1 MG TABLET PO SCH ×2 (09:33→21:01)
[2017-08-12] MEDS: *HR* LORazepam 0.5 MG TABLET PO SCH ×3 (09:34→20:58)
--- NOTE | 2017-08-12 11:04 | Psychiatry Progress Note ---
Date of Encounter: 08/12/17 Time of Encounter: 10:40 Subjective Interval history: Patient seen today case d/w staff. States i am just so relaxed , i quit being smart, he is pleasant and cooperative and soft spoken but when start conversation then his disorganized thought process is noted along wit flight of ideas, he is relegiously preoccupied , talking about missing hinduism today , he is talking today with his eyes closed, and he is trying to yawn and yawning for long time states i almost got it , states it helps me back stable , its the ultimate sayor and it is all god mighty can do as he is so busy and remain in his image ,has bizzare behaviours. here is holy spirit , he is probably drinking coffee.I will let Luke fight my battles. remains psychotic and delusional , continue stabilization . Review of Systems Psychiatric: Reports: auditory hallucinations, irritability, mood swings, other (patient has acute psychosis and delusional ) Results - Vital Signs Vital Signs: Temp Pulse Resp BP Pulse Ox 98.1 F 96 16 135/90 97 08/12/17 09:00 08/12/17 09:00 08/12/17 09:00 08/12/17 09:00 08/07/17 05:53 Assessment and Plan (1) Schizophreniform disorder Current visit: Yes Status: Acute Plan: Continue hospitalization, Close observation, Suicide Precautions per unit protocol, Encourage participation in unit milieu, Group Therapy, Monitor sleep, Monitor appetite, Family/Supportive other meeting Risks, benefits, side effects, alternatives discussed w/pt: Yes Patient agreeable to treatment: Yes (2) Drug-induced psychotic disorder Current visit: No Status: Acute Risks, benefits, side effects, alternatives discussed w/pt: Yes Patient agreeable to treatment: Yes Qualifiers: Complication of substance-induced condition: with delusions Qualified Code( s): F19.950 - Other psychoactive substance use, unspecified with psychoactive substance-induced psychotic disorder with delusions Consult Discharge Plan - Plan Referrals: NONE,PCP [Primary Care Provider] - Psychiatry Exam - Constitutional Vitals: Temp Pulse Resp BP Pulse Ox 98.1 F 96 16 135/90 97 08/12/17 09:00 08/12/17 09:00 08/12/17 09:00 08/12/17 09:00 08/07/17 05:53 General appearance: age & developmentally appropriate - Musculoskeletal Gait: normal Station: bizarre mannerisms Strength & Tone: normal for patient - Psychiatric Patient Orientation: Yes Person, Yes Time, Yes Place Level of alertness: Alert Behavior: cooperative, talkative Psychomotor activity: Normal Eye Contact: Minimal Contact Mood Description: Other (confident, safe , delightful) Affect description: constricted Speech Volume: Normal Speech pattern: disorganized Language & Vocabulary: consistent with education Thought Process: Flight of Ideas, Disorganized Thought Content: Yes Hoahaoism delusion, Yes Grandiose delusion Perceptual Disturbances: No Auditory hallucinations, No Visual hallucinations Attention Span Ability: Unable to Sustain Attention Memory Description: Grossly Intact Patient Reliability: Reliable Historian Fund of knowledge: Yes abstraction ability, Yes aware of current events Intelligence Estimate: Average Judgment: Limited Insight: Minimal
[2017-08-12] MEDS: Ibuprofen 400 MG TABLET PO PRN ×2 (14:09→22:55)
[2017-08-13] MEDS: risperiDONE 1 MG TABLET PO SCH ×2 (09:13→20:30)
[2017-08-13] MEDS: *HR* LORazepam 0.5 MG TABLET PO SCH ×3 (09:14→20:29)
--- NOTE | 2017-08-13 12:45 | Psychiatry Progress Note ---
Date of Encounter: 08/13/17 Time of Encounter: 11:00 Subjective Interval history: Silas is a 26-year-old male with an unclear psychiatric history who presented to the hospital with psychosis agitation and paranoia. Patient case discussed today in treatment team in previous notes reviewed. Patient's mom is very concerned because patient is still acting oddly, delusional, disorganized thought process. Today patient is very catholic preoccupied. He discusses the fact that he used to "sin" a lot but he decreased his "sinning" and now he is "like Luke." Patient is focused on discharge but unable to give any consistent discharge plans other than he wants to go to [facility] with his mom. During the interview he wipes his face with a para shortness he does appear to be slightly agitated and restless. Minimal eye contact. Patient unable to verbalize what his medications are for or if he has even taking them. Per staff patient may have been cheeking his medication. We will monitor this closely. Probate hearing set for . Review of Systems ROS limited: due to patient condition Psychiatric: Reports: abnormal sleep pattern, auditory hallucinations, difficulty concentrating, irritability, mood swings, other (patient has acute psychosis and delusional ) Results - Vital Signs Vital Signs: Temp Pulse Resp BP Pulse Ox 97.7 F 156 20 143/91 97 08/13/17 09:00 08/13/17 09:00 08/13/17 09:00 08/13/17 09:00 08/07/17 05:53 Assessment and Plan (1) Psychosis Current visit: Yes Status: Acute Plan: Continue hospitalization, Close observation, Suicide Precautions per unit protocol, Encourage participation in unit milieu, Group Therapy, Monitor sleep, Monitor appetite Additional Plan: Reviewed case with staff. Denies auditory hallucinations but does appear to be responding. He remains delusional and catholic preoccupied. Monitor vitals, We will retake from the am because pulse is elevated. Patient may be cheeking medications and staff will monitor closely. Bipolar disorder with jennifer and psychosis vs. schizophrenia vs. Drug induced mood and psychosis. Qualifiers: Psychosis type: unspecified psychosis type Qualified Code(s): F29 - Unspecified psychosis not due to a substance or known physiological condition (2) Cannabis abuse Current visit: Yes Status: Acute Plan: Continue hospitalization Additional Plan: D/c use. Risks, benefits, side effects, alternatives discussed w/pt: Yes Patient agreeable to treatment: Yes Consult Discharge Plan - Plan Referrals: NONE,PCP [Primary Care Provider] - Psychiatry Exam - Constitutional Vitals: Temp Pulse Resp BP Pulse Ox 97.7 F 156 20 143/91 97 08/13/17 09:00 08/13/17 09:00 08/13/17 09:00 08/13/17 09:00 08/07/17 05:53 General appearance: unkempt, disheveled, other (apprears to be sweating. ) - Musculoskeletal Gait: normal Station: relaxed Strength & Tone: normal for patient - Psychiatric Patient Orientation: Yes Person, Yes Time Level of alertness: Alert Behavior: restless, distractible, impulsive, talkative Psychomotor activity: Increased Eye Contact: Minimal Contact Mood Description: Euthymic/stable Affect description: labile Speech Volume: Normal Speech pattern: disorganized, rambling, excessive, pressured Language & Vocabulary: limited Thought Process: Tangential, Flight of Ideas, Perseveration Thought Content: Yes Paranoid delusion, Yes Yazdanism delusion Perceptual Disturbances: Yes Reacting to internal stimuli, No Auditory hallucinations, No Visual hallucinations Attention Span Ability: Unable to Focus Memory Description: Immediate Intact, Recent Impaired, Remote Impaired Patient Reliability: Not Reliable Historian Fund of knowledge: No abstraction ability, Yes average, No aware of current events Intelligence Estimate: Average Judgment: Limited Insight: Minimal
[2017-08-13] MEDS: hydrOXYzine pamoate 25 MG CAPSULE PO PRN (20:30)
[2017-08-13] MEDS: traZODone 50 MG TABLET PO PRN (20:30)
[2017-08-14] MEDS: risperiDONE 1 MG TABLET PO SCH ×2 (08:21→20:34)
[2017-08-14] MEDS: *HR* LORazepam 0.5 MG TABLET PO SCH ×3 (08:21→20:33)
--- NOTE | 2017-08-14 13:04 | Psychiatry Progress Note ---
Date of Encounter: 08/14/17 Time of Encounter: 11:30 Subjective Interval history: Silas is a 26-year-old male who is seen today for follow-up of his psychosis. He is slightly more organized today but remains very focused on discharge. Still very agitated and walking the hallways. He states he is taking his medication. He would like to leave because "I am fine." He continues to report faith preoccupation. He only slept 4 hours last night. Patient is willing to try an adjustment in his meds but does not see why he needs this. He continues to report delusional content to staff including paranoia and faith preoccupation with being "just like Luke." Review of Systems ROS limited: due to patient condition Psychiatric: Reports: abnormal sleep pattern, auditory hallucinations, difficulty concentrating, irritability, mood swings, other (patient has acute psychosis and delusional ) Results - Vital Signs Vital Signs: Temp Pulse Resp BP Pulse Ox 97.9 F 101 20 144/92 97 08/13/17 21:00 08/14/17 07:54 08/14/17 07:54 08/14/17 07:54 08/07/17 05:53 Assessment and Plan (1) Psychosis Current visit: Yes Status: Acute Plan: Continue hospitalization, Close observation, Suicide Precautions per unit protocol, Encourage participation in unit milieu, Group Therapy, Monitor sleep, Monitor appetite Additional Plan: Patient's symptoms seem to be improving marginally with current meds. We will monitor sleep and increased dosage of Risperdal. Encouraged patient to attend and appropriate ADLs and cooperate with staff and peers. Continue to educate patient on the need for medications. Risks, benefits, side effects, alternatives discussed w/pt: Yes Patient agreeable to treatment: Yes Qualifiers: Psychosis type: unspecified psychosis type Qualified Code(s): F29 - Unspecified psychosis not due to a substance or known physiological condition (2) Cannabis abuse Current visit: Yes Status: Acute Risks, benefits, side effects, alternatives discussed w/pt: Yes Patient agreeable to treatment: Yes Consult Discharge Plan - Plan Referrals: NONE,PCP [Primary Care Provider] - Psychiatry Exam - Constitutional Vitals: Temp Pulse Resp BP Pulse Ox 97.9 F 101 20 144/92 97 08/13/17 21:00 08/14/17 07:54 08/14/17 07:54 08/14/17 07:54 08/07/17 05:53 General appearance: unkempt, other (Clotheshave stains on them) - Musculoskeletal Gait: brisk Station: stiff Strength & Tone: normal for patient - Psychiatric Patient Orientation: Yes Person, Yes Place Level of alertness: Alert Behavior: agitated, restless, uncooperative Psychomotor activity: Increased Eye Contact: Diverts Contact Mood Description: Euthymic/stable Affect description: labile, incongruent with mood Speech Volume: Loud Speech pattern: disorganized, rambling Language & Vocabulary: limited Thought Process: Tangential, Disorganized Thought Content: No Suicidal ideation, No Homicidal ideation, Yes Paranoid delusion, Yes Congregational delusion Perceptual Disturbances: Yes Reacting to internal stimuli, No Auditory hallucinations, No Visual hallucinations Attention Span Ability: Unable to Focus, Unable to Sustain Attention Memory Description: Immediate Intact, Recent Impaired, Remote Impaired Patient Reliability: Not Reliable Historian Fund of knowledge: Yes average Intelligence Estimate: Below Average Judgment: Poor Insight: None
[2017-08-14] MEDS: traZODone 50 MG TABLET PO PRN (20:33)
[2017-08-14] MEDS: hydrOXYzine pamoate 25 MG CAPSULE PO PRN (20:34)
[2017-08-15] MEDS: *HR* LORazepam 0.5 MG TABLET PO SCH ×3 (09:08→21:44)
--- NOTE | 2017-08-15 11:18 | Psychiatry Progress Note ---
Date of Encounter: 08/15/17 Time of Encounter: 11:10 Subjective Interval history: Silas is seen today for follow-up. He seems to be tolerating Risperdal increase fairly well. Sleep is improving slowly. Patient is starting to become less agitated but remains irritable at times and difficult to redirect. He is still discussing mormon delusions but with less frequency. He reports he is agreeable to taking medications as prescribed. He is willing to have family come visit to evaluate if they feel he has returned to baseline. Review of Systems Psychiatric: Reports: abnormal sleep pattern, auditory hallucinations, difficulty concentrating, irritability, mood swings, other (patient has acute psychosis and delusional ) Results - Vital Signs Vital Signs: Temp Pulse Resp BP Pulse Ox 98.5 F 99 16 148/97 97 08/14/17 20:12 08/14/17 20:12 08/14/17 20:12 08/14/17 20:12 08/07/17 05:53 Assessment and Plan (1) Psychosis Current visit: Yes Status: Acute Plan: Continue hospitalization, Close observation, Suicide Precautions per unit protocol, Encourage participation in unit milieu, Group Therapy, Monitor sleep, Monitor appetite Additional Plan: We will continue Risperdal at current dosage. Continue to monitor vitals. Probate hearing tomorrow for patient's continued hospitalization if necessary. Patient is making some slow improvement. We will have family come in and see patient to determine if he is close to baseline. Risks, benefits, side effects, alternatives discussed w/pt: Yes Patient agreeable to treatment: Yes Qualifiers: Psychosis type: unspecified psychosis type Qualified Code(s): F29 - Unspecified psychosis not due to a substance or known physiological condition (2) Cannabis abuse Current visit: Yes Status: Acute Risks, benefits, side effects, alternatives discussed w/pt: Yes Patient agreeable to treatment: Yes Consult Discharge Plan - Plan Referrals: NONE,PCP [Primary Care Provider] - Psychiatry Exam - Constitutional Vitals: Temp Pulse Resp BP Pulse Ox 98.5 F 99 16 148/97 97 08/14/17 20:12 08/14/17 20:12 08/14/17 20:12 08/14/17 20:12 08/07/17 05:53 General appearance: unkempt - Musculoskeletal Gait: brisk Station: relaxed Strength & Tone: normal for patient - Psychiatric Patient Orientation: Yes Person, Yes Place Level of alertness: Alert Behavior: restless, impulsive Psychomotor activity: Increased Eye Contact: Minimal Contact Mood Description: Euthymic/stable Affect description: labile Speech Volume: Normal Speech pattern: rambling Language & Vocabulary: limited Thought Process: Stambaugh Thought Content: Yes Latter-Day delusion Perceptual Disturbances: No Reacting to internal stimuli, No Auditory hallucinations, No Visual hallucinations Attention Span Ability: Capable of Focused Attention (For limited periods of time) Memory Description: Immediate Intact, Recent Impaired, Remote Impaired Patient Reliability: Not Reliable Historian Fund of knowledge: No abstraction ability, Yes average, No aware of current events Intelligence Estimate: Average Judgment: Limited Insight: Minimal
[2017-08-15] MEDS: traZODone 50 MG TABLET PO PRN (21:44)
[2017-08-15] MEDS: risperiDONE 1 MG TABLET PO SCH (21:45)
[2017-08-16] MEDS ORDERED: risperiDONE 1 MG TABLET PO SCH (09:00)
[2017-08-16] MEDS: *HR* LORazepam 0.5 MG TABLET PO SCH (09:07)
[2017-08-16 10:24] VITALS: BP 151/92
--- NOTE | 2017-08-16 10:50 | Discharge Summary ---
Date of Encounter: 08/16/17 Time of Encounter: 09:15 Diagnosis - Discharge Diagnosis (1) Psychosis Priority: Primary Status: Acute Qualifiers: Psychosis type: unspecified psychosis type Qualified Code(s): F29 - Unspecified psychosis not due to a substance or known physiological condition (2) Cannabis abuse Priority: Secondary Status: Acute (3) Methamphetamine abuse Priority: Secondary Status: Acute Medications - Discharge Medications Prescriptions: hydrOXYzine pamoate [HydrOXYzine Pamoate] 25 mg PO TID PRN #90 capsule PRN Reason: Anxiety risperiDONE [RisperDAL] 1 mg PO DAILY #30 tablet risperiDONE [RisperDAL] 2 mg PO HS #30 tablet traZODone [TraZODone] 50 mg PO HS PRN #30 tablet PRN Reason: Insomnia hydrOXYzine pamoate [HydrOXYzine Pamoate] 25 mg PO TID PRN #90 capsule 06/06/17 [Rx] hydrOXYzine pamoate [HydrOXYzine Pamoate] 25 mg PO TID PRN #90 capsule 08/16/17 [Rx] risperiDONE [RisperDAL] 1 mg PO DAILY #30 tablet 08/16/17 [Rx] risperiDONE [RisperDAL] 2 mg PO HS #30 tablet 08/16/17 [Rx] traZODone [TraZODone] 50 mg PO HS PRN #30 tablet 08/16/17 [Rx] 3 Allergy/AdvReac Type Severity Reaction Status Date / Time No Known Allergies Allergy Verified 11/02/15 22:18 Provider Date of admission: 08/07/17 14:39 Primary care physician: PCP NONE Discharging clinician: Taylor Lin Psychiatry Exam - Constitutional Vitals: Temp Pulse Resp BP Pulse Ox 98.3 F 109 20 151/92 97 08/16/17 09:00 08/16/17 09:00 08/16/17 09:00 08/16/17 09:00 08/07/17 05:53 General appearance: age & developmentally appropriate - Musculoskeletal Gait: normal Station: relaxed Strength & Tone: normal for patient - Psychiatric Patient Orientation: Yes Person, Yes Time, Yes Place Level of alertness: Alert Behavior: calm, cooperative Psychomotor activity: Increased Eye Contact: Minimal Contact Mood Description: Euthymic/stable Affect description: congruent with mood ( more full range) Speech Volume: Normal Speech pattern: fluent, spontaneous Thought Process: Linear, Goal Oriented Thought Content: No Suicidal ideation, No Homicidal ideation, Yes Zoroastrianism delusion (Improving significantly, patient less fixated on alevism topics) Perceptual Disturbances: No Reacting to internal stimuli, No Auditory hallucinations, No Visual hallucinations Attention Span Ability: Capable of Focused Attention Memory Description: Grossly Intact Patient Reliability: Reliable Historian Fund of knowledge: Yes average, Yes aware of current events Intelligence Estimate: Average Judgment: Fair Insight: Partial Hospital Course Hospital course: Mr. Gould is a 26 year old male with a history of psychosis and drug use who presented to the hospital delusional, agitated, religiously preoccupied. He was admitted to for psychiatric stabilization. Patient was incorporated into the therapeutic milieu and offer group and individual as well as recreational therapies. He was also offered psychoeducational materials and supportive therapy . He was placed on suicide precautions and close observation per unit protocol. Patient was initially very disorganized and agitated. He was started on Risperdal and this was titrated to 1 mg in the morning and 2 mg at bedtime. BP was slightly elevated but was monitored closely throughout the hospital stay. It did seem to be more increased after agitation. Initially patient was walking the hallways constantly pacing. This activity improved and patient became more organized and reality based. He was very religiously preoccupied during this hospitalization. Patient remained is interested in christianity but was less focused on bizarre alevism beliefs like the idea that he is Luke. He patient was initially placed on probation paperwork after his pink slip . However, patient improved significantly to the point that family members were comfortable with him coming home and monitoring his progress as an outpatient. Patient verbalized willingness to continue outpatient appointments and take medications as prescribed. I reviewed with the patient when he should return to the hospital and what symptoms to monitor and patient verbalized understanding. Family members are also willing to assist patient with this. He is discharged in stable condition. At the time of discharge, patient denied suicidal or homicidal ideation, intent, or plan. He did not appear to be responding to internal stimuli. - Time Spent with Patient Total time spent providing and/or coordinating discharge services: Greater than 30 minutes Assessment and Plan - Patient/Caregiver Discharge Instructions Activity: resume usual activities as tolerated Diet: regular diet - Follow up Plan Follow up with: Octavia [facility]anzlogic, TM [Outside] - 08/20/17 2:00 pm (The above appointment is with [facility] for outpatient substance abuse counseling services. Please bring your insurance card, medication list and photo ID. Your appointment will last between 2 and 3 hours.) [facility] [Outside] - 10/19/17 1:00 pm (The above appointment is with Boubacar Dillon Daily for outpatient psychiatric assessment and medication management services. Please arrive 30 minutes early to complete paperwork. Please bring your photo ID (bring proof of address if you do not have an ID) and medication list. The above appointment(s) reflects first availability. You may contact the office regularly to check for cancellations that may allow you to be seen sooner. ) Severino Arora DO [Resident] - 08/21/17 4:00 pm (The above appointment is with Dr. Arora for primary healthcare and medication management services.) Functional capacity at discharge: independent ambulation Overall status at discharge: patient is progressing back to baseline Disposition: Home, Self-Care Quality - Multiple Antipsychotics Patient discharged on 2 or more antipsychotic medications: No Procedures - Procedures Procedures: Medication Management, Crisis Stabilization, Supportive Therapy, Group Therapy, Psychoeducational Therapy
== END 2017-08-16 11:25 | disposition home or self-care (01) | DRG 751 ==
LOC: EMEROO 14:50 → SUATTDRO 08-07 14:39 → 1ANU 08-07 14:39
PROVIDERS: ADMIT Psychiatry & Neurology Psychiatry; ATTEND Student in an Organized Health Care Education/Training Program

== ENCOUNTER 2017-12-06 12:14 | Inpatient (IN) ==
[2017-12-06] MEDS ORDERED: Haloperidol Lactate 5 MG/ML VIAL IM ONE ×2 (12:30→12:57)
[2017-12-06] MEDS ORDERED: *HR* LORazepam 2 MG/ML VIAL IM ONE (12:30)
[2017-12-06 14:03] LABS: Amphetamine Screen,Urine Negative ng/mL (Cutoff=1000); Barbiturate Screen,Urine Negative ng/mL (Cutoff=200); Benzodiazepines Screen,Urine Negative ng/mL (Cutoff=200); Cannabinoid Screen,Urine Negative ng/mL (Cutoff = 50); Cocaine Screen,Urine Negative ng/mL (Cutoff= 300); Opiate Screen,Urine Negative ng/mL (Cutoff=300); Phencyclidine Screen,Urine Negative ng/mL (Cutoff=25)
[2017-12-06 14:16] LABS: Bilirubin,Urine Small (Negative); Blood,Urine Negative (Negative); Clarity,Urine Clear (Clear); Color,Urine Yellow (Yellow); Glucose,Urine (UA) Normal (Normal); Ketones,Urine 80 mg/dL (Negative); Leukocyte Esterase,Urine Negative (Negative); Nitrite,Urine Negative (Negative); Protein,Urine 30 mg/dL (Neg-Trace); Specific Gravity,Urine 1.028 (1.010-1.025); Squamous Epithelial Cell,Urine Few per lpf (None-Few); Urobilinogen,Urine Normal (Normal); WBC,Urine 0-3 per hpf (0-3)
--- NOTE | 2017-12-06 14:18 | Emergency Department Note ---
Disposition Clinical Impression: Acute psychosis Disposition: Admitted As Inpatient Condition: Fair Referrals: NONE,PCP [Primary Care Provider] - Forms: ED Satisfaction Letter Time of Disposition: 19:13 General Adult HPI - General Chief complaint: ED Psychiatric Symptoms Stated complaint: psych Time Seen by Provider: 12/06/17 12:26 Source: patient, EMS Limitations: no limitations - History of Present Illness Pain Scale: 0 - Related Data Previous Rx's Medication Instructions Recorded hydrOXYzine pamoate [HydrOXYzine 25 mg PO TID PRN #90 capsule 06/06/17 Pamoate] hydrOXYzine pamoate [HydrOXYzine 25 mg PO TID PRN #90 capsule 08/16/17 Pamoate] risperiDONE [RisperDAL] 1 mg PO DAILY #30 tablet 08/16/17 risperiDONE [RisperDAL] 2 mg PO HS #30 tablet 08/16/17 traZODone [TraZODone] 50 mg PO HS PRN #30 tablet 08/16/17 Allergies Allergy/AdvReac Type Severity Reaction Status Date / Time No Known Allergies Allergy Verified 11/02/15 22:18 Past Medical History - Past Medical History Medical history: Reports: non-contributory, fibromyalgia, hyperlipidemia Surgical history: Reports: non-contributory, herniorrhaphy Psychiatric history: Reports: previous psychiatric hospitalization, other - Social History Smoking Status: Current every day smoker Smokeless Tobacco Status: No Alcohol use: Reports: none Drug use: Reports: marijuana, methamphetamine, other Physical Exam - General Limitations: no limitations General appearance: appears intoxicated, anxious Course Vital Signs Temperature 0 F L 12/06/17 12:16 Pulse Rate 114 12/06/17 12:16 Respiratory Rate 18 12/06/17 12:16 Blood Pressure 0/0 12/06/17 12:16 O2 Sat by Pulse Oximetry 96 12/06/17 12:16 Temperature 98.9 F 12/06/17 13:03 Pulse Rate 114 12/06/17 13:03 Respiratory Rate 18 12/06/17 13:03 Blood Pressure 134/94 12/06/17 13:03 O2 Sat by Pulse Oximetry 96 12/06/17 13:03 Oxygen Delivery Oxygen Delivery Room Air Medical Decision Making - Lab Data Result diagrams: 12/06/17 14:54 12/06/17 14:54 Lab Results 08/30/18 08/30/18 08/30/18 Range/Units 12:31 12:31 14:54 WBC 11.0 (4.3-11.1) K/mcL RBC 4.95 (4.19-5.50) M/mcL Hgb 15.3 (12.9-16.9) g/dL Hct 42.6 (37.5-50.1) % MCV 86.1 (83.0-100.0) fL MCH 30.9 (28.0-33.3) pg MCHC 35.9 H (31.6-35.5) g/dL RDW 11.9 (11.5-14.5) % Plt Count 290 (140-400) K/mcL MPV 9.2 L (9.4-12.4) fL Immature Gran % 0.4 (0-4) % Seg Neutrophils % 83.5 % Lymphocytes % 8.9 % Monocytes % 6.8 % Eosinophils % 0.1 % Basophils % 0.3 % Neutrophils # 9.2 H (1.6-8.9) K/mcL Lymphocytes # 1.0 (0.6-4.6) K/mcL Monocytes # 0.7 (0.0-1.3) K/mcL Eosinophils # 0.0 (0.0-0.6) K/mcL Basophils # 0.0 (0.0-0.2) K/mcL Sodium (136-145) mEq/L Potassium (3.5-5.1) mEq/L Chloride (98-107) mEq/L Carbon Dioxide (23-29) mEq/L BUN (6-20) mg/dL Creatinine (0.70-1.30) mg/dL Est GFR ( Amer) (> 60) Est GFR (Non-Af Amer) (> 60) BUN/Creatinine Ratio (6-26) Glucose (70-105) mg/dL Calculated Osmolality (280-300) Calcium (8.6-10.3) mg/dL Urine Color Yellow (Yellow) Urine Clarity Clear (Clear) Urine pH 6.0 (5.0-8.0) pH Units Ur Specific [place] 1.028 H (1.010-1.025) Urine Protein 30 H (Neg-Trace) mg/dL Urine Glucose (UA) Normal (Normal) mg/dL Urine Ketones 80 H (Negative) mg/dL Urine Blood Negative (Negative) Urine Nitrite Negative (Negative) Urine Bilirubin Small H (Negative) Urine Urobilinogen Normal (Normal) mg/dL Ur Leukocyte Esterase Negative (Negative) Urine Microscopic WBC 0-3 (0-3) per hpf Ur Squamous Epith Cells Few (None-Few) per lpf Salicylates (15.0-30.0) mg/dL Urine Opiates Screen Negative (Jdynph=596) ng/mL Acetaminophen (10-20) mcg/mL Ur Barbiturates Screen Negative (Eqbwph=553) ng/mL Ur Phencyclidine Scrn Negative (Cutoff=25) ng/mL Ur Amphetamines Screen Negative (Jgseto=2321) ng/mL U Benzodiazepines Scrn Negative (Fumzfe=048) ng/mL Urine Cocaine Screen Negative (Cutoff= 300) ng/mL U Marijuana (THC) Screen Negative (Cutoff = 50) ng/mL Ur Drug Screen Interp See Below Ethyl Alcohol (Less than 10) mg/dL 12/06/17 Range/Units 14:54 WBC (4.3-11.1) K/mcL RBC (4.19-5.50) M/mcL Hgb (12.9-16.9) g/dL Hct (37.5-50.1) % MCV (83.0-100.0) fL MCH (28.0-33.3) pg MCHC (31.6-35.5) g/dL RDW (11.5-14.5) % Plt Count (140-400) K/mcL MPV (9.4-12.4) fL Immature Gran % (0-4) % Seg Neutrophils % % Lymphocytes % % Monocytes % % Eosinophils % % Basophils % % Neutrophils # (1.6-8.9) K/mcL Lymphocytes # (0.6-4.6) K/mcL Monocytes # (0.0-1.3) K/mcL Eosinophils # (0.0-0.6) K/mcL Basophils # (0.0-0.2) K/mcL Sodium 142 (136-145) mEq/L Potassium 4.8 (3.5-5.1) mEq/L Chloride 107 (98-107) mEq/L Carbon Dioxide 30 H (23-29) mEq/L BUN 17 (6-20) mg/dL Creatinine 0.95 (0.70-1.30) mg/dL Est GFR ( Amer) > 60 (> 60) Est GFR (Non-Af Amer) > 60 (> 60) BUN/Creatinine Ratio 18 (6-26) Glucose 102 (70-105) mg/dL Calculated Osmolality 296 (280-300) Calcium 10.3 (8.6-10.3) mg/dL Urine Color (Yellow) Urine Clarity (Clear) Urine pH (5.0-8.0) pH Units Ur Specific [place] (1.010-1.025) Urine Protein (Neg-Trace) mg/dL Urine Glucose (UA) (Normal) mg/dL Urine Ketones (Negative) mg/dL Urine Blood (Negative) Urine Nitrite (Negative) Urine Bilirubin (Negative) Urine Urobilinogen (Normal) mg/dL Ur Leukocyte Esterase (Negative) Urine Microscopic WBC (0-3) per hpf Ur Squamous Epith Cells (None-Few) per lpf Salicylates < 2.5 L (15.0-30.0) mg/dL Urine Opiates Screen (Jgpbwv=676) ng/mL Acetaminophen < 10 L (10-20) mcg/mL Ur Barbiturates Screen (Lkipqj=209) ng/mL Ur Phencyclidine Scrn (Cutoff=25) ng/mL Ur Amphetamines Screen (Wpidir=7892) ng/mL U Benzodiazepines Scrn (Yyyxdc=612) ng/mL Urine Cocaine Screen (Cutoff= 300) ng/mL U Marijuana (THC) Screen (Cutoff = 50) ng/mL Ur Drug Screen Interp Ethyl Alcohol < 10 (Less than 10) mg/dL Attestation Statement - Attestation Attestation: I examined this patient and my medical decision-making was reviewed with the [employer]MENT PARK WORKER/PA/Advanced Practice Nurse/Resident Physician. I agree with the documented findings, disposition and treatment plan as described except to the extent set forth below. I did see the patient who is altered and the story is that he does have a history of methamphetamine use. His, the police wandering around the park. Also history of alcohol ingestion. He does not have any focal deficit in the sense that he is moving around the bed, alternating between laying prone and laying supine and sitting up. Does have a vacant and faraway look in his eyes. Skin is pink. He is breathing comfortably. No drooling or stridor. Testing here is pending. Patient will be observed. Did receive an injection of Haldol and Ativan. I did review the previous record. [id number]
[2017-12-06 15:03] LABS: Basophils % 0.3 %; Eosinophils % 0.1 %; Hematocrit 42.6 % (37.5-50.1); Hemoglobin 15.3 g/dL (12.9-16.9); Immature Granulocytes % 0.4 % (0-4); Lymphocytes % 8.9 %; Mean Corpuscular HGB Conc 35.9 g/dL (31.6-35.5); Mean Corpuscular Hemoglobin 30.9 pg (28.0-33.3); Mean Corpuscular Volume 86.1 fL (83.0-100.0); Mean Platelet Volume 9.2 fL (9.4-12.4); Monocytes # 0.7 K/mcL (0.0-1.3); Monocytes % 6.8 %; Neutrophils # 9.2 K/mcL (1.6-8.9); Platelet Count 290 K/mcL (140-400); Red Blood Count 4.95 M/mcL (4.19-5.50); Red Cell Distribution Width 11.9 % (11.5-14.5); Segmented Neutrophils % 83.5 %
[2017-12-06 15:24] LABS: Acetaminophen < 10 mcg/mL (10-20); BUN/Creatinine Ratio 18 (6-26); Blood Urea Nitrogen 17 mg/dL (6-20); Calcium 10.3 mg/dL (8.6-10.3); Carbon Dioxide 30 mEq/L (23-29); Chloride 107 mEq/L (98-107); Glucose 102 mg/dL (70-105); Osmolality,Calculated 296 (280-300); Potassium 4.8 mEq/L (3.5-5.1); Salicylate < 2.5 mg/dL (15.0-30.0); Sodium 142 mEq/L (136-145); eGFR For Non-African Americans > 60 (> 60)
[2017-12-06 18:03] LABS: Ethanol < 10 mg/dL (Less than 10)
--- NOTE | 2017-12-06 19:58 | Emergency Department Note ---
Disposition Clinical Impression: Acute psychosis Disposition: Admitted As Inpatient Condition: Fair Referrals: NONE,PCP [Primary Care Provider] - Forms: ED Satisfaction Letter Time of Disposition: 19:59 General Adult HPI - General Chief complaint: ED Psychiatric Symptoms Stated complaint: psych Time Seen by Provider: 12/06/17 12:26 Source: patient, EMS Mode of arrival: EMS Limitations: altered mental status Nursing Notes Reviewed: Yes Vital Signs Reviewed: Yes - History of Present Illness HPI Narrative: Patient is a 27-year-old male with a past medical history of drug use including methamphetamines presents to the emergency Department by squad after being found altered in a park. Squad states that people were concerned the patient experiencing what appeared to be hallucinations and having abnormal behavior. The patient himself is alert however he is unable to communicate with me due to experiencing what appears to be hallucinations he is on all fours in the bed with his head pointed up towards the ceiling. Pain Scale: 0 - Related Data Previous Rx's Medication Instructions Recorded hydrOXYzine pamoate [HydrOXYzine 25 mg PO TID PRN #90 capsule 06/06/17 Pamoate] hydrOXYzine pamoate [HydrOXYzine 25 mg PO TID PRN #90 capsule 08/16/17 Pamoate] risperiDONE [RisperDAL] 1 mg PO DAILY #30 tablet 08/16/17 risperiDONE [RisperDAL] 2 mg PO HS #30 tablet 08/16/17 traZODone [TraZODone] 50 mg PO HS PRN #30 tablet 08/16/17 Allergies Allergy/AdvReac Type Severity Reaction Status Date / Time No Known Allergies Allergy Verified 11/02/15 22:18 Limitations: ROS unobtainable due to patients medical condition Past Medical History - Past Medical History Attestation: Yes The following information was validated with the patient. Medical history: Reports: non-contributory, fibromyalgia, hyperlipidemia Surgical history: Reports: non-contributory, herniorrhaphy Psychiatric history: Reports: previous psychiatric hospitalization, other - Social History Smoking Status: Current every day smoker Smokeless Tobacco Status: No Alcohol use: Reports: none Drug use: Reports: marijuana, methamphetamine, other Physical Exam CONSTITUTIONAL: Patient is alert and is exhibiting abnormal behavior such as looking at the dailey and snapping his fingers and standing on the bed on all fours and appears to be very agitated. HEAD: Normocephalic; atraumatic. EYES: PERRL, no scleral icterus. NOSE: The nose is normal in appearance without rhinorrhea RESP: Normal chest excursion with respiration; breath sounds clear and equal bilaterally; no wheezes, rhonchi, or rales CARD: Regular rhythm, without murmurs, rub or gallop ABD: Non-distended; non-tender, soft,without rigidity, rebound or guarding SKIN: Patient has track wallace on bilateral arms. - General Limitations: no limitations General appearance: appears intoxicated, anxious Course Course Narrative: Upon arrival to the room the patient became increasingly agitated and required restraint by security. For plain restraints were initially applied to the patient's extremities and he received 5 mg of Haldol with 2 mg of Ativan IM. The patient continued to require restraint after medication and menstruation is given an additional dose of Tylenol and Haldol. After the patient received the Haldol's symptoms improved. Restraints were removed and the patient was relaxing in bed vitals are stable. He underwent medical clearance for psychiatric placement his lab work was unremarkable, drug screen was negative, due to his drug screen being negative the patient was sent for head CT and that was also negative. The 1A team saw the patient that an echo comfortable admitting of this psych considering his abnormal behavior and requested that he be a medical admission with consultation to them. I agree with this plan. After the patient arrived from head CT he was alert and oriented 3 speaking in full sentences and appeared to no longer be agitated and very cooperative. He denied any complaints at this times asking what he has to do to be medically cleared to be complete. Discussed plan to admit him to the hospital. - Reevaluation(s) Reevaluation #1: I discussed the patient's case with the hospitalist on-call Dr. Hoyos. States that the patient appears to be medically cleared at this time I discussed with him that I do agree with that assessment given the patient's current physical exam and status. He also has a history of psych admission for acute psychosis. He discussed that he is going to consult with the psychiatric R and to discuss patient's admission to 1A for consultation instead of being admitted to the hospitalist floor given that he does not have a medical needs at this time. He stated that he will call me back with the patient's plan for disposition whether it will be to the 1A floor or to the hospital floor. Patient will be signed out to the night team Dr. Armando Pratt and Dr. Quijano. Time: 20:28 Vital Signs Temperature 0 F L 12/06/17 12:16 Pulse Rate 114 12/06/17 12:16 Respiratory Rate 18 12/06/17 12:16 Blood Pressure 0/0 12/06/17 12:16 O2 Sat by Pulse Oximetry 96 12/06/17 12:16 Temperature 98.9 F 12/06/17 13:03 Pulse Rate 114 12/06/17 13:03 Respiratory Rate 18 12/06/17 13:03 Blood Pressure 134/94 12/06/17 13:03 O2 Sat by Pulse Oximetry 96 12/06/17 13:03 Oxygen Delivery Oxygen Delivery Room Air Medical Decision Making - Medical Records Medical records reviewed: Yes I reviewed the patient's medical records. - Lab Data Lab results reviewed: Yes I reviewed the patient's lab results. Result diagrams: 12/06/17 14:54 12/06/17 14:54 Lab Results 12/06/17 12/06/17 12/06/17 Range/Units 12:31 12:31 14:54 WBC 11.0 (4.3-11.1) K/mcL RBC 4.95 (4.19-5.50) M/mcL Hgb 15.3 (12.9-16.9) g/dL Hct 42.6 (37.5-50.1) % MCV 86.1 (83.0-100.0) fL MCH 30.9 (28.0-33.3) pg MCHC 35.9 H (31.6-35.5) g/dL RDW 11.9 (11.5-14.5) % Plt Count 290 (140-400) K/mcL MPV 9.2 L (9.4-12.4) fL Immature Gran % 0.4 (0-4) % Seg Neutrophils % 83.5 % Lymphocytes % 8.9 % Monocytes % 6.8 % Eosinophils % 0.1 % Basophils % 0.3 % Neutrophils # 9.2 H (1.6-8.9) K/mcL Lymphocytes # 1.0 (0.6-4.6) K/mcL Monocytes # 0.7 (0.0-1.3) K/mcL Eosinophils # 0.0 (0.0-0.6) K/mcL Basophils # 0.0 (0.0-0.2) K/mcL Sodium (136-145) mEq/L Potassium (3.5-5.1) mEq/L Chloride (98-107) mEq/L Carbon Dioxide (23-29) mEq/L BUN (6-20) mg/dL Creatinine (0.70-1.30) mg/dL Est GFR ( Amer) (> 60) Est GFR (Non-Af Amer) (> 60) BUN/Creatinine Ratio (6-26) Glucose (70-105) mg/dL Calculated Osmolality (280-300) Calcium (8.6-10.3) mg/dL Urine Color Yellow (Yellow) Urine Clarity Clear (Clear) Urine pH 6.0 (5.0-8.0) pH Units Ur Specific [place] 1.028 H (1.010-1.025) Urine Protein 30 H (Neg-Trace) mg/dL Urine Glucose (UA) Normal (Normal) mg/dL Urine Ketones 80 H (Negative) mg/dL Urine Blood Negative (Negative) Urine Nitrite Negative (Negative) Urine Bilirubin Small H (Negative) Urine Urobilinogen Normal (Normal) mg/dL Ur Leukocyte Esterase Negative (Negative) Urine Microscopic WBC 0-3 (0-3) per hpf Ur Squamous Epith Cells Few (None-Few) per lpf Salicylates (15.0-30.0) mg/dL Urine Opiates Screen Negative (Dotwxj=073) ng/mL Acetaminophen (10-20) mcg/mL Ur Barbiturates Screen Negative (Xcojmh=699) ng/mL Ur Phencyclidine Scrn Negative (Cutoff=25) ng/mL Ur Amphetamines Screen Negative (Lcgkvi=0738) ng/mL U Benzodiazepines Scrn Negative (Nckzlv=742) ng/mL Urine Cocaine Screen Negative (Cutoff= 300) ng/mL U Marijuana (THC) Screen Negative (Cutoff = 50) ng/mL Ur Drug Screen Interp See Below Ethyl Alcohol (Less than 10) mg/dL 12/06/17 Range/Units 14:54 WBC (4.3-11.1) K/mcL RBC (4.19-5.50) M/mcL Hgb (12.9-16.9) g/dL Hct (37.5-50.1) % MCV (83.0-100.0) fL MCH (28.0-33.3) pg MCHC (31.6-35.5) g/dL RDW (11.5-14.5) % Plt Count (140-400) K/mcL MPV (9.4-12.4) fL Immature Gran % (0-4) % Seg Neutrophils % % Lymphocytes % % Monocytes % % Eosinophils % % Basophils % % Neutrophils # (1.6-8.9) K/mcL Lymphocytes # (0.6-4.6) K/mcL Monocytes # (0.0-1.3) K/mcL Eosinophils # (0.0-0.6) K/mcL Basophils # (0.0-0.2) K/mcL Sodium 142 (136-145) mEq/L Potassium 4.8 (3.5-5.1) mEq/L Chloride 107 (98-107) mEq/L Carbon Dioxide 30 H (23-29) mEq/L BUN 17 (6-20) mg/dL Creatinine 0.95 (0.70-1.30) mg/dL Est GFR ( Amer) > 60 (> 60) Est GFR (Non-Af Amer) > 60 (> 60) BUN/Creatinine Ratio 18 (6-26) Glucose 102 (70-105) mg/dL Calculated Osmolality 296 (280-300) Calcium 10.3 (8.6-10.3) mg/dL Urine Color (Yellow) Urine Clarity (Clear) Urine pH (5.0-8.0) pH Units Ur Specific [place] (1.010-1.025) Urine Protein (Neg-Trace) mg/dL Urine Glucose (UA) (Normal) mg/dL Urine Ketones (Negative) mg/dL Urine Blood (Negative) Urine Nitrite (Negative) Urine Bilirubin (Negative) Urine Urobilinogen (Normal) mg/dL Ur Leukocyte Esterase (Negative) Urine Microscopic WBC (0-3) per hpf Ur Squamous Epith Cells (None-Few) per lpf Salicylates < 2.5 L (15.0-30.0) mg/dL Urine Opiates Screen (Umdrxt=998) ng/mL Acetaminophen < 10 L (10-20) mcg/mL Ur Barbiturates Screen (Onxvhv=927) ng/mL Ur Phencyclidine Scrn (Cutoff=25) ng/mL Ur Amphetamines Screen (Ytrmed=0033) ng/mL U Benzodiazepines Scrn (Yemkcc=679) ng/mL Urine Cocaine Screen (Cutoff= 300) ng/mL U Marijuana (THC) Screen (Cutoff = 50) ng/mL Ur Drug Screen Interp Ethyl Alcohol < 10 (Less than 10) mg/dL - Radiology Data Radiology results reviewed: Yes I reviewed the patient's radiology results. Head CT 12/06/17 16:01 IMPRESSION: No acute intracranial abnormality. D/ / Sánchez Pantoja MD / Sánchez Pantoja MD Interpreting Provider: Sánchez Pantoja MD - EKG Data EKG #1 EKG attestation: Yes I reviewed and interpreted this EKG. EKG results narrative: EKG done at 12:23 shows sinus tachycardia at a rate of 109 bpm. Normal axis. Intervals within normal limits. No signs of ischemia.
--- NOTE | 2017-12-06 22:43 | Emergency Department Note ---
Disposition Clinical Impression: Acute psychosis Disposition: Admitted As Inpatient Condition: Fair Referrals: NONE,PCP [Primary Care Provider] - Forms: ED Satisfaction Letter General Adult HPI - General Chief complaint: ED Psychiatric Symptoms Stated complaint: psych Time Seen by Provider: 12/06/17 12:26 Source: patient, EMS Mode of arrival: EMS Limitations: no limitations - History of Present Illness Pain Scale: 0 - Related Data Previous Rx's Medication Instructions Recorded hydrOXYzine pamoate [HydrOXYzine 25 mg PO TID PRN #90 capsule 06/06/17 Pamoate] hydrOXYzine pamoate [HydrOXYzine 25 mg PO TID PRN #90 capsule 08/16/17 Pamoate] risperiDONE [RisperDAL] 1 mg PO DAILY #30 tablet 08/16/17 risperiDONE [RisperDAL] 2 mg PO HS #30 tablet 08/16/17 traZODone [TraZODone] 50 mg PO HS PRN #30 tablet 08/16/17 Allergies Allergy/AdvReac Type Severity Reaction Status Date / Time No Known Allergies Allergy Verified 11/02/15 22:18 Past Medical History - Past Medical History Medical history: Reports: non-contributory, fibromyalgia, hyperlipidemia Surgical history: Reports: non-contributory, herniorrhaphy Psychiatric history: Reports: previous psychiatric hospitalization, other - Social History Smoking Status: Current every day smoker Smokeless Tobacco Status: No Alcohol use: Reports: none Drug use: Reports: marijuana, methamphetamine, other Physical Exam - General Limitations: no limitations General appearance: appears intoxicated, anxious Course Course Narrative: Patient signed out to us by the day team. Awaiting reevaluation by psychiatric services to determine disposition. Patient reevaluated by 1a. decision was made to admit to psychiatric services. Patient will be admitted to psychiatric services with a pink slip. Vital Signs Temperature 0 F L 12/06/17 12:16 Pulse Rate 114 12/06/17 12:16 Respiratory Rate 18 12/06/17 12:16 Blood Pressure 0/0 12/06/17 12:16 O2 Sat by Pulse Oximetry 96 12/06/17 12:16 Temperature 98.9 F 12/06/17 13:03 Pulse Rate 89 12/06/17 21:25 Respiratory Rate 16 12/06/17 21:25 Blood Pressure 112/75 12/06/17 21:25 O2 Sat by Pulse Oximetry 97 12/06/17 21:25 Oxygen Delivery Oxygen Delivery Room Air Medical Decision Making - Lab Data Result diagrams: 12/06/17 14:54 12/06/17 14:54 Lab Results 12/06/17 12/06/17 12/06/17 Range/Units 12:31 12:31 14:54 WBC 11.0 (4.3-11.1) K/mcL RBC 4.95 (4.19-5.50) M/mcL Hgb 15.3 (12.9-16.9) g/dL Hct 42.6 (37.5-50.1) % MCV 86.1 (83.0-100.0) fL MCH 30.9 (28.0-33.3) pg MCHC 35.9 H (31.6-35.5) g/dL RDW 11.9 (11.5-14.5) % Plt Count 290 (140-400) K/mcL MPV 9.2 L (9.4-12.4) fL Immature Gran % 0.4 (0-4) % Seg Neutrophils % 83.5 % Lymphocytes % 8.9 % Monocytes % 6.8 % Eosinophils % 0.1 % Basophils % 0.3 % Neutrophils # 9.2 H (1.6-8.9) K/mcL Lymphocytes # 1.0 (0.6-4.6) K/mcL Monocytes # 0.7 (0.0-1.3) K/mcL Eosinophils # 0.0 (0.0-0.6) K/mcL Basophils # 0.0 (0.0-0.2) K/mcL Sodium (136-145) mEq/L Potassium (3.5-5.1) mEq/L Chloride (98-107) mEq/L Carbon Dioxide (23-29) mEq/L BUN (6-20) mg/dL Creatinine (0.70-1.30) mg/dL Est GFR ( Amer) (> 60) Est GFR (Non-Af Amer) (> 60) BUN/Creatinine Ratio (6-26) Glucose (70-105) mg/dL Calculated Osmolality (280-300) Calcium (8.6-10.3) mg/dL Urine Color Yellow (Yellow) Urine Clarity Clear (Clear) Urine pH 6.0 (5.0-8.0) pH Units Ur Specific [place] 1.028 H (1.010-1.025) Urine Protein 30 H (Neg-Trace) mg/dL Urine Glucose (UA) Normal (Normal) mg/dL Urine Ketones 80 H (Negative) mg/dL Urine Blood Negative (Negative) Urine Nitrite Negative (Negative) Urine Bilirubin Small H (Negative) Urine Urobilinogen Normal (Normal) mg/dL Ur Leukocyte Esterase Negative (Negative) Urine Microscopic WBC 0-3 (0-3) per hpf Ur Squamous Epith Cells Few (None-Few) per lpf Salicylates (15.0-30.0) mg/dL Urine Opiates Screen Negative (Gdadge=745) ng/mL Acetaminophen (10-20) mcg/mL Ur Barbiturates Screen Negative (Hydmwc=852) ng/mL Ur Phencyclidine Scrn Negative (Cutoff=25) ng/mL Ur Amphetamines Screen Negative (Zyfnsx=0142) ng/mL U Benzodiazepines Scrn Negative (Vrkycv=611) ng/mL Urine Cocaine Screen Negative (Cutoff= 300) ng/mL U Marijuana (THC) Screen Negative (Cutoff = 50) ng/mL Ur Drug Screen Interp See Below Ethyl Alcohol (Less than 10) mg/dL 12/06/17 Range/Units 14:54 WBC (4.3-11.1) K/mcL RBC (4.19-5.50) M/mcL Hgb (12.9-16.9) g/dL Hct (37.5-50.1) % MCV (83.0-100.0) fL MCH (28.0-33.3) pg MCHC (31.6-35.5) g/dL RDW (11.5-14.5) % Plt Count (140-400) K/mcL MPV (9.4-12.4) fL Immature Gran % (0-4) % Seg Neutrophils % % Lymphocytes % % Monocytes % % Eosinophils % % Basophils % % Neutrophils # (1.6-8.9) K/mcL Lymphocytes # (0.6-4.6) K/mcL Monocytes # (0.0-1.3) K/mcL Eosinophils # (0.0-0.6) K/mcL Basophils # (0.0-0.2) K/mcL Sodium 142 (136-145) mEq/L Potassium 4.8 (3.5-5.1) mEq/L Chloride 107 (98-107) mEq/L Carbon Dioxide 30 H (23-29) mEq/L BUN 17 (6-20) mg/dL Creatinine 0.95 (0.70-1.30) mg/dL Est GFR ( Amer) > 60 (> 60) Est GFR (Non-Af Amer) > 60 (> 60) BUN/Creatinine Ratio 18 (6-26) Glucose 102 (70-105) mg/dL Calculated Osmolality 296 (280-300) Calcium 10.3 (8.6-10.3) mg/dL Urine Color (Yellow) Urine Clarity (Clear) Urine pH (5.0-8.0) pH Units Ur Specific [place] (1.010-1.025) Urine Protein (Neg-Trace) mg/dL Urine Glucose (UA) (Normal) mg/dL Urine Ketones (Negative) mg/dL Urine Blood (Negative) Urine Nitrite (Negative) Urine Bilirubin (Negative) Urine Urobilinogen (Normal) mg/dL Ur Leukocyte Esterase (Negative) Urine Microscopic WBC (0-3) per hpf Ur Squamous Epith Cells (None-Few) per lpf Salicylates < 2.5 L (15.0-30.0) mg/dL Urine Opiates Screen (Qcupvm=020) ng/mL Acetaminophen < 10 L (10-20) mcg/mL Ur Barbiturates Screen (Giltar=031) ng/mL Ur Phencyclidine Scrn (Cutoff=25) ng/mL Ur Amphetamines Screen (Vvjoam=4295) ng/mL U Benzodiazepines Scrn (Olhyrg=604) ng/mL Urine Cocaine Screen (Cutoff= 300) ng/mL U Marijuana (THC) Screen (Cutoff = 50) ng/mL Ur Drug Screen Interp Ethyl Alcohol < 10 (Less than 10) mg/dL
[2017-12-06] MEDS ORDERED: *HR* LORazepam 1 MG TABLET PO PRN (22:47)
[2017-12-06] MEDS ORDERED: MOM Conc 10 ML UD.LIQ PO PRN (22:47)
[2017-12-06] MEDS ORDERED: Mag Hydrox/Al Hydrox/Simeth 30 ML UDC PO PRN (22:47)
[2017-12-07] MEDS ORDERED: Ziprasidone injection 20 MG/ML VIAL IM ONE ×2 (09:43→09:46)
[2017-12-07] MEDS ORDERED: *HR* LORazepam 2 MG/ML VIAL IM ONE (09:47)
--- NOTE | 2017-12-07 10:58 | Psychiatry History & Physical ---
Date of Encounter: 12/07/17 Time of Encounter: 10:30 History of Present Illness Patient Stated Chief Complaint: I want to leave today, I was in the park Medicare Admission Attestation: For traditional Medicare patients the provided hospital inpatient services are reasonable and necessary and in the case of services not specified as inpatient -only under 42 CFR 419.22 (n), that they are appropriately provided as inpatient services in accordance 42 CFR 412.3. For Critical Access Hospital the patient may reasonably be expected to be discharged or transferred to a hospital within 96 hours after admission to the Critical Access Hospital. Admitted From: Emergency Dept Plans for Post Hospital Care: Home History of Present Illness: Mr. Gould is a 27 year old male . I was not doing anything. History of present illness the patient was admitted to the emergency room after episode of bizarre behavior. This included yelling roman catholic statements and acting in an unusual way posturing in getting on all fours. In the emergency room the patient was immediately treated with Haldol and Ativan and later placed in restraints. He was unable to give a history for a long period of time. Events occurred yesterday in the afternoon and the patient was finally evaluated at about 8 or 9 PM last night. The drug screen was negative for drugs of abuse were tested. The patient denied the abuse of drugs. Nonetheless in the 24 hour period the patient has exhibited excited activity delusional statements grandiosity increased activity bizarre movements echolalia and echopraxia palilalia. He has had a silly affect he is joking rhyming , clanging and safety. The patient was violent and in restraints in the emergency room but after admission to the unit is able to participate in some self care. The patient requests to leave stating there was nothing wrong that he stop smoking cigarettes 3 months ago. He reports that he lives with his grandfather in [place]. He was accompanied by his mother who is distressed. The patient has a history of noncompliance. He did not show up for his follow- up appointment is not clear that he took risperidone. He did follow up with his resident at [facility] but then got some gabapentin. On interview today the patient was agitated excessively active. Silly dramatic rest and exhibited many of the catatonic features seen above. The patient's history is significant for methamphetamine abuse. A state pharmacy report will be run later today. The patient was informed that he would require involuntary hospitalization he did agree to emergency medicine but refused scheduled medicine Past Med Surg Social Fam HX - Past Medical History Source: old records reviewed Medical history: non-contributory, fibromyalgia, hyperlipidemia - Past Psychiatric History Psychiatric history: Reports: previous psychiatric hospitalization Family psychiatric history: Yes Family History of Suicide: Unknown - Past Surgical History Surgical History: non-contributory, herniorrhaphy - Social History Smoking Status: Smoker, status unknown Smokeless Tobacco Status: No Alcohol use: none Drug use: marijuana, methamphetamine, other Occupational status: unemployed Current living situation: With Family, Homeless Activity Level: Independent ambulation Recent Out of Country Travel Within the Last 8 Weeks: No Exposure or Possible Exposure to Illness During Travel: No Medications & Allergies hydrOXYzine pamoate [HydrOXYzine Pamoate] 25 mg PO TID PRN #90 capsule 08/16/17 [Rx] risperiDONE [RisperDAL] 1 mg PO DAILY #30 tablet 08/16/17 [Rx] risperiDONE [RisperDAL] 2 mg PO HS #30 tablet 08/16/17 [Rx] traZODone [TraZODone] 50 mg PO HS PRN #30 tablet 08/16/17 [Rx] Gabapentin [Neurontin] 600 mg PO TID 12/07/17 [History] 3 Allergy/AdvReac Type Severity Reaction Status Date / Time No Known Allergies Allergy Verified 11/02/15 22:18 Review of Systems ROS limited: due to patient condition Psychiatric: Reports: abnormal sleep pattern, suicidal ideation, irritability Exam - HEENT Head exam IM: Present: atraumatic Eye exam IM: Present: EOMI, normal appearance, PERRL ENT exam IM: Present: normal exam - Neurological Neurological exam: Present: CN II-XII intact - Respiratory Respiratory exam IM: Present: CTAB - GI/Abdominal GI/Abdominal exam IM: Present: normal bowel sounds, soft. Absent: tenderness - Extremities Extremities exam IM: Present: full ROM - Skin Skin exam IM: Present: dry, warm - Constitutional Vitals: Temp Pulse Resp BP Pulse Ox 98.5 F 96 16 125/94 97 12/07/17 09:00 12/07/17 09:00 12/07/17 09:00 12/07/17 09:00 12/06/17 21:25 General appearance: age & developmentally appropriate, well-groomed, well- nourished - Musculoskeletal Gait: brisk, other Station: bizarre mannerisms Strength & Tone: abnormal extension, abnormal flexion - Psychiatric Patient Orientation: Yes Person, Yes Time, Yes Place Level of alertness: Alert Behavior: cooperative, restless, uncooperative Psychomotor activity: Increased Eye Contact: Maintains Eye Contact Mood Description: Euphoric, Expansive Affect description: congruent with mood, euphoric, inappropriate to situation Speech Volume: Loud, Excessive Variation Speech pattern: normal tone, fluent, spontaneous, Inappropriate to situation, pressured, repetetive Language & Vocabulary: consistent with education Thought Process: Goal Oriented, Tangential, Flight of Ideas, Neologisms Thought Content: Yes Suicidal ideation, Yes Homicidal ideation, No Overt delusions, Yes Grandiose delusion Perceptual Disturbances: Yes Auditory hallucinations, Yes Visual hallucinations Attention Span Ability: Unable to Sustain Attention Memory Description: Grossly Intact Patient Reliability: Not Reliable Historian Fund of knowledge: Yes abstraction ability, Yes average Intelligence Estimate: Average Judgment: Poor Insight: None Results - Labs Labs: Laboratory Last Values WBC 11.0 K/mcL (4.3-11.1) 12/06/17 14:54 RBC 4.95 M/mcL (4.19-5.50) 12/06/17 14:54 Hgb 15.3 g/dL (12.9-16.9) 12/06/17 14:54 Hct 42.6 % (37.5-50.1) 12/06/17 14:54 MCV 86.1 fL (83.0-100.0) 12/06/17 14:54 MCH 30.9 pg (28.0-33.3) 12/06/17 14:54 MCHC 35.9 g/dL (31.6-35.5) H 12/06/17 14:54 RDW 11.9 % (11.5-14.5) 12/06/17 14:54 Plt Count 290 K/mcL (140-400) 12/06/17 14:54 MPV 9.2 fL (9.4-12.4) L 12/06/17 14:54 Immature Gran % 0.4 % (0-4) 12/06/17 14:54 Seg Neutrophils % 83.5 % 12/06/17 14:54 Lymphocytes % 8.9 % 12/06/17 14:54 Monocytes % 6.8 % 12/06/17 14:54 Eosinophils % 0.1 % 12/06/17 14:54 Basophils % 0.3 % 12/06/17 14:54 Neutrophils # 9.2 K/mcL (1.6-8.9) H 12/06/17 14:54 Lymphocytes # 1.0 K/mcL (0.6-4.6) 12/06/17 14:54 Monocytes # 0.7 K/mcL (0.0-1.3) 12/06/17 14:54 Eosinophils # 0.0 K/mcL (0.0-0.6) 12/06/17 14:54 Basophils # 0.0 K/mcL (0.0-0.2) 12/06/17 14:54 Sodium 142 mEq/L (136-145) 12/06/17 14:54 Potassium 4.8 mEq/L (3.5-5.1) 12/06/17 14:54 Chloride 107 mEq/L (98-107) 12/06/17 14:54 Carbon Dioxide 30 mEq/L (23-29) H 12/06/17 14:54 BUN 17 mg/dL (6-20) 12/06/17 14:54 Creatinine 0.95 mg/dL (0.70-1.30) 12/06/17 14:54 Est GFR ( Amer) > 60 (> 60) 12/06/17 14:54 Est GFR (Non-Af Amer) > 60 (> 60) 12/06/17 14:54 BUN/Creatinine Ratio 18 (6-26) 12/06/17 14:54 Glucose 102 mg/dL (70-105) 12/06/17 14:54 Calculated Osmolality 296 (280-300) 12/06/17 14:54 Calcium 10.3 mg/dL (8.6-10.3) 12/06/17 14:54 Urine Color Yellow (Yellow) 12/06/17 12:31 Urine Clarity Clear (Clear) 12/06/17 12:31 Urine pH 6.0 pH Units (5.0-8.0) 12/06/17 12:31 Ur Specific [place] 1.028 (1.010-1.025) H 12/06/17 12:31 Urine Protein 30 mg/dL (Neg-Trace) H 12/06/17 12:31 Urine Glucose (UA) Normal mg/dL (Normal) 12/06/17 12:31 Urine Ketones 80 mg/dL (Negative) H 12/06/17 12:31 Urine Blood Negative (Negative) 12/06/17 12:31 Urine Nitrite Negative (Negative) 12/06/17 12:31 Urine Bilirubin Small (Negative) H 12/06/17 12:31 Urine Urobilinogen Normal mg/dL (Normal) 12/06/17 12:31 Ur Leukocyte Esterase Negative (Negative) 12/06/17 12:31 Urine Microscopic WBC 0-3 per hpf (0-3) 12/06/17 12:31 Ur Squamous Epith Cells Few per lpf (None-Few) 12/06/17 12:31 Salicylates < 2.5 mg/dL (15.0-30.0) L 12/06/17 14:54 Urine Opiates Screen Negative ng/mL (Ngpely=616) 12/06/17 12: Acetaminophen < 10 mcg/mL (10-20) L 12/06/17 14:54 Ur Barbiturates Screen Negative ng/mL (Sjxmoa=181) 12/06/17 12:31 Ur Phencyclidine Scrn Negative ng/mL (Cutoff=25) 12/06/17 12:31 Ur Amphetamines Screen Negative ng/mL (Ugwljt=0216) 12/06/17 12:31 U Benzodiazepines Scrn Negative ng/mL (Hdfhss=101) 12/06/17 12:31 Urine Cocaine Screen Negative ng/mL (Cutoff= 300) 12/06/17 12:31 U Marijuana (THC) Screen Negative ng/mL (Cutoff = 50) 12/06/17 12:31 Ur Drug Screen Interp See Below 12/06/17 12:31 Ethyl Alcohol < 10 mg/dL (Less than 10) 12/06/17 14:54 Assessment and Plan (1) 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 Current visit: Yes Status: Acute Plan: Admit inpatient for safety and stabilization, Close observation, Suicide Precautions per unit protocol, Encourage participation in unit milieu, Group Therapy, Monitor sleep, Secure weapons Risks, benefits, side effects, alternatives discussed w/pt: Yes Patient agreeable to treatment: Yes (2) 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 Current visit: Yes Status: Acute Plan: Admit inpatient for safety and stabilization, Close observation, Suicide Precautions per unit protocol, Encourage participation in unit milieu Risks, benefits, side effects, alternatives discussed w/pt: Yes Patient agreeable to treatment: Yes Plans for Post Hospital Care: Home (3) Patient's noncompliance with other medical treatment and regimen Current visit: Yes Status: Chronic Plan: Other Risks, benefits, side effects, alternatives discussed w/pt: Yes Patient agreeable to treatment: Yes Plans for Post Hospital Care: Home (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 Plan: Family/Supportive other meeting Risks, benefits, side effects, alternatives discussed w/pt: Yes Patient agreeable to treatment: Yes Plans for Post Hospital Care: Home Qualifiers: Complication of substance-induced condition: with delusions Qualified Code( s): F19.950 - Other psychoactive substance use, unspecified with 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 Current visit: No Status: Acute Plan: Admit inpatient for safety and stabilization, Close observation, Suicide Precautions per unit protocol, Encourage participation in unit milieu, Monitor appetite Risks, benefits, side effects, alternatives discussed w/pt: Yes Patient agreeable to treatment: Yes Plans for Post Hospital Care: Home (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
[2017-12-07] MEDS: OLANZapine 10 MG TAB.RAPDIS PO SCH (20:51)
[2017-12-07] MEDS: traZODone 50 MG TABLET PO PRN (20:51)
--- NOTE | 2017-12-08 10:00 | Psychiatry Progress Note ---
Date of Encounter: 12/08/17 Time of Encounter: 09:57 Subjective Interval history: Client is difficult to interview. He has a lot of psychomotor agitation. Running about the unit. Climbing on things. Has received multiple prns. Client denies SI/HI/AH/VH. Also denies drug use but has a history of methamphetamine dependence. Tox screen negative but suspect his presentation is still related to substance intoxication/withdrawal. Not safe for discharge. Client asking to leave but he is too unpredictable. Currently he has two scheduled antipsychotics in addition to prns. Will not change anything today and give him time to respond. Review of Systems Constitutional: Denies: fever, chills, weakness, weight change Eyes: Denies: eye pain, vision change Ears, Nose, Throat: Denies: ear pain, throat pain, dental pain, hearing loss, congestion Cardiovascular: Denies: chest pain, palpitations, dyspnea on exertion Respiratory: Denies: cough, dyspnea, wheezes Gastrointestinal: Denies: abdominal pain, nausea, vomiting, diarrhea, constipation Musculoskeletal: Denies: joint swelling, joint pain Neurological: Denies: headache, weakness, numbness, memory loss Psychiatric: Reports: abnormal sleep pattern, suicidal ideation, irritability Results - Vital Signs Vital Signs: Temp Pulse Resp BP Pulse Ox 98.8 F 74 18 134/83 97 12/08/17 09:00 12/08/17 09:00 12/08/17 09:00 12/08/17 09:00 12/06/17 21:25 Assessment and Plan (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 Plan: Continue hospitalization, Close observation, Suicide Precautions per unit protocol, Encourage participation in unit milieu, Group Therapy, Monitor sleep, Monitor appetite Risks, benefits, side effects, alternatives discussed w/pt: Yes Patient agreeable to treatment: Yes Qualifiers: Complication of substance-induced condition: with delusions Qualified Code( s): F19.950 - Other psychoactive substance use, unspecified with 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 Current visit: No Status: Acute Plan: Continue hospitalization, Close observation, Suicide Precautions per unit protocol, Encourage participation in unit milieu, Group Therapy, Monitor sleep, Monitor appetite Risks, benefits, side effects, alternatives discussed w/pt: Yes Patient agreeable to treatment: Yes Consult Discharge Plan - Plan Referrals: NONE,PCP [Primary Care Provider] - Psychiatry Exam - Constitutional Vitals: Temp Pulse Resp BP Pulse Ox 98.8 F 74 18 134/83 97 12/08/17 09:00 12/08/17 09:00 12/08/17 09:00 12/08/17 09:00 12/06/17 21:25 General appearance: disheveled - Musculoskeletal Gait: other Station: bizarre mannerisms Strength & Tone: normal for patient - Psychiatric Patient Orientation: Yes Person, Yes Time, Yes Place Level of alertness: Alert Behavior: agitated Psychomotor activity: Increased Eye Contact: Minimal Contact Mood Description: Irritable Affect description: congruent with mood Speech Volume: Normal Speech pattern: normal rate, normal rhythm, normal tone, fluent, spontaneous Language & Vocabulary: consistent with education Thought Process: Tangential Thought Content: No Suicidal ideation, No Homicidal ideation, No Overt delusions Perceptual Disturbances: Yes Reacting to internal stimuli, No Auditory hallucinations, No Visual hallucinations Attention Span Ability: Unable to Focus Memory Description: Immediate Intact, Recent Impaired, Remote Intact Patient Reliability: Not Reliable Historian Fund of knowledge: Yes abstraction ability, Yes aware of current events Intelligence Estimate: Average Judgment: Limited Insight: Minimal
[2017-12-08] MEDS: Acetaminophen 325 MG TABLET PO PRN (18:30)
[2017-12-08] MEDS: traZODone 50 MG TABLET PO PRN (20:52)
[2017-12-08] MEDS: hydrOXYzine pamoate 25 MG CAPSULE PO PRN (20:52)
[2017-12-08] MEDS: OLANZapine 10 MG TAB.RAPDIS PO SCH (20:52)
[2017-12-09] MEDS ORDERED: *HR* LORazepam 1 MG TABLET PO STA (08:51)
--- NOTE | 2017-12-09 09:38 | Psychiatry Progress Note ---
Date of Encounter: 12/09/17 Time of Encounter: 09:34 Subjective Interval history: Client actually looks worse today. Running all over the unit. Staff are concerned he will hurt himself he is so psychomotor agitated. Able to answer questions but still psychotic. Will randomly start shouting numbers. Receiving multiple prns. Already given Haldol 10mg, Ativan 2mg, and Benadryl 50mg this morning. Will go ahead and increase evening dose of Zyprexa to 15mg tonight. Seems to be tolerating medications ok. No adverse reactions. Vital signs are stable. Client remains adamant he did not take any substances prior to admission. "I don't do drugs." His tox screen is negative but not all inclusive. Suspect ingestion of bath salts or something similar that does not show up on standard tox screens. Bath salts are also poorly responsive to medications which would explain his slow recovery. Review of Systems Constitutional: Denies: fever, chills, weakness, weight change Eyes: Denies: eye pain, vision change Ears, Nose, Throat: Denies: ear pain, throat pain, dental pain, hearing loss, congestion Cardiovascular: Denies: chest pain, palpitations, dyspnea on exertion Respiratory: Denies: cough, dyspnea, wheezes Gastrointestinal: Denies: abdominal pain, nausea, vomiting, diarrhea, constipation Musculoskeletal: Denies: joint swelling, joint pain Neurological: Denies: headache, weakness, numbness, memory loss Psychiatric: Reports: abnormal sleep pattern, suicidal ideation, irritability Results - Vital Signs Vital Signs: Temp Pulse Resp BP Pulse Ox 97.1 F L 111 20 136/96 97 12/09/17 09:00 12/09/17 09:00 12/09/17 09:00 12/09/17 09:00 12/06/17 21:25 Assessment and Plan (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 Plan: Continue hospitalization, Close observation, Suicide Precautions per unit protocol, Encourage participation in unit milieu, Group Therapy, Monitor sleep, Monitor appetite Risks, benefits, side effects, alternatives discussed w/pt: Yes Patient agreeable to treatment: Yes Qualifiers: Complication of substance-induced condition: with delusions Qualified Code( s): F19.950 - Other psychoactive substance use, unspecified with 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 Current visit: No Status: Acute Plan: Continue hospitalization, Close observation, Suicide Precautions per unit protocol, Encourage participation in unit milieu, Group Therapy, Monitor sleep, Monitor appetite Risks, benefits, side effects, alternatives discussed w/pt: Yes Patient agreeable to treatment: Yes Consult Discharge Plan - Plan Referrals: NONE,PCP [Primary Care Provider] - Psychiatry Exam - Constitutional Vitals: Temp Pulse Resp BP Pulse Ox 97.1 F L 111 20 136/96 97 12/09/17 09:00 12/09/17 09:00 12/09/17 09:00 12/09/17 09:00 12/06/17 21:25 General appearance: unkempt, disheveled - Musculoskeletal Gait: other Station: other Strength & Tone: normal for patient - Psychiatric Patient Orientation: Yes Person, Yes Time, Yes Place Level of alertness: Alert Behavior: agitated Psychomotor activity: Increased Eye Contact: Minimal Contact Mood Description: Irritable Affect description: congruent with mood Speech Volume: Normal Speech pattern: normal rate, normal rhythm, normal tone, fluent, spontaneous Language & Vocabulary: consistent with education Thought Process: Tangential Thought Content: No Suicidal ideation, No Homicidal ideation, No Overt delusions Perceptual Disturbances: Yes Reacting to internal stimuli, No Auditory hallucinations, No Visual hallucinations Attention Span Ability: Unable to Focus Memory Description: Immediate Intact, Recent Impaired, Remote Intact Patient Reliability: Not Reliable Historian Fund of knowledge: Yes abstraction ability, Yes aware of current events Intelligence Estimate: Average Judgment: Limited Insight: Minimal
[2017-12-09] MEDS: OLANZapine 10 MG TAB.RAPDIS PO SCH (20:39)
[2017-12-09] MEDS: traZODone 50 MG TABLET PO PRN (20:40)
[2017-12-09] MEDS: hydrOXYzine pamoate 25 MG CAPSULE PO PRN (20:40)
[2017-12-09] MEDS ORDERED: OLANZapine 5 MG TAB.RAPDIS PO SCH (21:00)
[2017-12-10] MEDS: *HR* LORazepam 2 MG/ML VIAL IM PRN ×2 (08:08→21:15)
[2017-12-10] MEDS: Haloperidol Lactate 5 MG/ML VIAL IM PRN ×2 (08:10→21:26)
--- NOTE | 2017-12-10 09:49 | Psychiatry Progress Note ---
Date of Encounter: 12/10/17 Time of Encounter: 09:47 Subjective Interval history: Still psychotic. Has already required IM medications this morning. Tried to cheek his oral meds. He repeatedly goes into the shower room without soap. Responding to IS. Client denies all symptoms but he is still really disorganized. Taking multiple meds with minimal response. Denies substance abuse but presentation is consistent with a substance induced psychosis. Suspect Bath Salts. Review of Systems Constitutional: Denies: fever, chills, weakness, weight change Eyes: Denies: eye pain, vision change Ears, Nose, Throat: Denies: ear pain, throat pain, dental pain, hearing loss, congestion Cardiovascular: Denies: chest pain, palpitations, dyspnea on exertion Respiratory: Denies: cough, dyspnea, wheezes Gastrointestinal: Denies: abdominal pain, nausea, vomiting, diarrhea, constipation Musculoskeletal: Denies: joint swelling, joint pain Neurological: Denies: headache, weakness, numbness, memory loss Psychiatric: Reports: abnormal sleep pattern, suicidal ideation, irritability Results - Vital Signs Vital Signs: Temp Pulse Resp BP Pulse Ox 98.6 F 87 18 126/88 97 12/09/17 20:48 12/09/17 20:48 12/09/17 20:48 12/09/17 20:48 12/06/17 21:25 Assessment and Plan (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 Plan: Continue hospitalization, Close observation, Suicide Precautions per unit protocol, Encourage participation in unit milieu, Group Therapy, Monitor sleep, Monitor appetite Risks, benefits, side effects, alternatives discussed w/pt: Yes Patient agreeable to treatment: Yes Qualifiers: Complication of substance-induced condition: with delusions Qualified Code( s): F19.950 - Other psychoactive substance use, unspecified with 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 Current visit: No Status: Acute Plan: Continue hospitalization, Close observation, Suicide Precautions per unit protocol, Encourage participation in unit milieu, Group Therapy, Monitor sleep, Monitor appetite Risks, benefits, side effects, alternatives discussed w/pt: Yes Patient agreeable to treatment: Yes Consult Discharge Plan - Plan Referrals: NONE,PCP [Primary Care Provider] - Psychiatry Exam - Constitutional Vitals: Temp Pulse Resp BP Pulse Ox 98.6 F 87 18 126/88 97 12/09/17 20:48 12/09/17 20:48 12/09/17 20:48 12/09/17 20:48 12/06/17 21:25 General appearance: unkempt, disheveled - Musculoskeletal Gait: normal Station: relaxed Strength & Tone: normal for patient - Psychiatric Patient Orientation: Yes Person, Yes Time, Yes Place Level of alertness: Alert Behavior: agitated Psychomotor activity: Increased Eye Contact: Minimal Contact Mood Description: Irritable Affect description: congruent with mood Speech Volume: Normal Speech pattern: normal rate, normal rhythm, normal tone, fluent, spontaneous Language & Vocabulary: consistent with education Thought Process: Tangential Thought Content: No Suicidal ideation, No Homicidal ideation Perceptual Disturbances: Yes Reacting to internal stimuli Attention Span Ability: Unable to Focus Memory Description: Immediate Intact, Recent Impaired, Remote Intact Patient Reliability: Not Reliable Historian Fund of knowledge: Yes abstraction ability, Yes aware of current events Intelligence Estimate: Average Judgment: Limited Insight: Minimal
--- NOTE | 2017-12-10 12:19 | Electrocardiograph Report ---
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
[2017-12-10] MEDS: OLANZapine 10 MG TAB.RAPDIS PO SCH (20:59)
--- NOTE | 2017-12-11 13:07 | Psychiatry Progress Note ---
Date of Encounter: 12/11/17 Time of Encounter: 12:15 Subjective Interval history: Previous note: Still psychotic. Has already required IM medications this morning. Tried to cheek his oral meds. He repeatedly goes into the shower room without soap. Responding to IS. Client denies all symptoms but he is still really disorganized. Taking multiple meds with minimal response. Denies substance abuse but presentation is consistent with a substance induced psychosis. Suspect Bath Salts. Pt is a 27 yo,, male, never with no children, who presents for Acute psychosis R/O substance induced . Pt continues to deny substance abuse however presentation consistent with substance induced psychosis (bath salts). Pt still not maintaining proper hygine. Pt is spitting in his shirt and does not wash his hair or use soap. Pt continue to cheek oral medications. 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 Pt denied any side effects to current medications. Pt noted he felt safe and comfortable on the unit.. Pt was in agreement with current treatment plan. Pt noted that he is doing alright today. Pt noted he slept really good last night. Pt noted his appetite is great. Pt rated his depression a 0, on a scale of zero to ten with ten being the worst and zero being none. Pt rate his anxiety a 0, on the same scale. Pt denied any auditory or visual hallucinations. Pt curently responding to internal stimuli. Pt denied any current thoughts to harm himself or anyone else. No TD noted, AIMS=0 Tobacco: Denies any current Alcohol: Denies any current Street: some meth and ice. Caffeine: 2-3 drinks per day Pt denies any hx of HIV, TBI, Hep C or Seizures. 1.Interval hx 2.Continue current medications 3.Review current labs 4.Pt had an opportunity to ask questions and discuss current treatment plan. 5.Supportive therapy was provided 6.Pt encouraged to consider group or individual therapy 7.Pt was in agreement with treatment plan. 8.Pt was educated on the risks benefits and side effects of current medications. 9. Start Paliperidone 234 mg IM for mood, with follow up 156 in 5-7 days for mood stabilziation and noncompliance with oral medications. Review of Systems Constitutional: Denies: fever, chills, weakness, weight change Eyes: Denies: eye pain, vision change Ears, Nose, Throat: Denies: ear pain, throat pain, dental pain, hearing loss, congestion Cardiovascular: Denies: chest pain, palpitations, dyspnea on exertion Respiratory: Denies: cough, dyspnea, wheezes Gastrointestinal: Denies: abdominal pain, nausea, vomiting, diarrhea, constipation Musculoskeletal: Denies: joint swelling, joint pain Neurological: Denies: headache, weakness, numbness, memory loss Psychiatric: Reports: abnormal sleep pattern, suicidal ideation, irritability Results - Vital Signs Vital Signs: Temp Pulse Resp BP Pulse Ox 98.6 F 124 18 135/94 97 12/11/17 09:00 12/11/17 09:00 12/11/17 09:00 12/11/17 09:00 12/06/17 21:25 Assessment and Plan (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 Plan: Continue hospitalization, Close observation, Suicide Precautions per unit protocol, Encourage participation in unit milieu, Group Therapy, Monitor sleep, Monitor appetite Risks, benefits, side effects, alternatives discussed w/pt: Yes Patient agreeable to treatment: Yes Qualifiers: Complication of substance-induced condition: with delusions Qualified Code( s): F19.950 - Other psychoactive substance use, unspecified with psychoactive substance-induced psychotic disorder with delusions (2) Methamphetamine abuse Current visit: No Status: Acute Plan: Continue hospitalization, Close observation, Suicide Precautions per unit protocol, Encourage participation in unit milieu, Group Therapy, Monitor sleep, Monitor appetite Risks, benefits, side effects, alternatives discussed w/pt: Yes Patient agreeable to treatment: Yes (3) Altered mental status Current visit: No Status: Acute Plan: Continue hospitalization, Close observation, Suicide Precautions per unit protocol, Encourage participation in unit milieu, Group Therapy, Monitor sleep, Monitor appetite Risks, benefits, side effects, alternatives discussed w/pt: Yes Patient agreeable to treatment: Yes Qualifiers: Altered mental status type: disorientation Qualified Code(s): R41.0 - Disorientation, unspecified (4) Psychosis Current visit: No Status: Acute Plan: Continue hospitalization, Close observation, Suicide Precautions per unit protocol, Encourage participation in unit milieu, Group Therapy, Monitor sleep, Monitor appetite Risks, benefits, side effects, alternatives discussed w/pt: Yes Patient agreeable to treatment: Yes Qualifiers: Psychosis type: unspecified psychosis type Qualified Code(s): F29 - Unspecified psychosis not due to a substance or known physiological condition Consult Discharge Plan - Plan Referrals: NONE,PCP [Primary Care Provider] - Psychiatry Exam - Constitutional Vitals: Temp Pulse Resp BP Pulse Ox 98.6 F 124 18 135/94 97 12/11/17 09:00 12/11/17 09:00 12/11/17 09:00 12/11/17 09:00 12/06/17 21:25 General appearance: age & developmentally appropriate, well-groomed, well- nourished - Musculoskeletal Gait: normal Station: relaxed Strength & Tone: normal for patient - Psychiatric Patient Orientation: Yes Person, Yes Place Level of alertness: Other (stuperious) Behavior: restless, uncooperative, suspicious Psychomotor activity: Agitated Eye Contact: Minimal Contact Mood Description: Anxious Affect description: inappropriate to situation Speech Volume: Normal Speech pattern: normal rate, normal rhythm, normal tone, Inappropriate to situation, disorganized, rambling, repetetive Language & Vocabulary: consistent with education Thought Process: Loose Associations, Disorganized Thought Content: No Suicidal ideation, No Homicidal ideation, Yes Overt delusions Perceptual Disturbances: Yes Reacting to internal stimuli Attention Span Ability: Unable to Focus Memory Description: Recent Impaired, Remote Impaired Patient Reliability: Not Reliable Historian Fund of knowledge: Yes average Intelligence Estimate: Average Judgment: Poor Insight: Minimal
[2017-12-11] MEDS: Haloperidol Lactate 5 MG/ML VIAL IM PRN (14:44)
[2017-12-11] MEDS: *HR* LORazepam 2 MG/ML VIAL IM PRN (14:44)
[2017-12-11] MEDS: hydrOXYzine pamoate 25 MG CAPSULE PO PRN (21:11)
[2017-12-11] MEDS: traZODone 50 MG TABLET PO PRN (21:11)
[2017-12-11] MEDS: OLANZapine 10 MG TAB.RAPDIS PO SCH (21:11)
--- NOTE | 2017-12-12 11:12 | Psychiatry Progress Note ---
Date of Encounter: 12/12/17 Time of Encounter: 11:05 Subjective Interval history: Pt is a 27 yo,, male, never with no children, who presents for Acute psychosis R/O substance induced . Pt continues to deny substance abuse however presentation consistent with substance induced psychosis (bath salts). Pt still not maintaining proper hygine. Pt continues spitting in his shirt and does not wash his hair or use soap. Pt continue to cheek oral medications. Pt agreed to start halfway injectable for stabilization. Pt denied any side effects to current medications. Pt noted he felt safe and comfortable on the unit.. Pt was in agreement with current treatment plan. Pt noted that he is doing pretty good today. Pt noted he slept really good last night. Pt noted his appetite is great. Pt rated his depression a 0, on a scale of zero to ten with ten being the worst and zero being none. Pt rate his anxiety a 0, on the same scale. Pt denied any auditory or visual hallucinations. Pt currently responding to internal stimuli. Pt denied any current thoughts to harm himself or anyone else. No TD noted, AIMS=0 Tobacco: Denies any current Alcohol: Denies any current Street: some meth and ice. Caffeine: 2-3 drinks per day Pt denies any hx of HIV, TBI, Hep C or Seizures. 1.Interval hx 2.Continue current medications 3.Review current labs 4.Pt had an opportunity to ask questions and discuss current treatment plan. 5.Supportive therapy was provided 6.Pt encouraged to consider group or individual therapy 7.Pt was in agreement with treatment plan. 8.Pt was educated on the risks benefits and side effects of current medications. 9. Start Paliperidone 234 mg IM for mood, with follow up 156 in 5-7 days for mood stabilziation and noncompliance with oral medications Review of Systems Constitutional: Denies: fever, chills, weakness, weight change Eyes: Denies: eye pain, vision change Ears, Nose, Throat: Denies: ear pain, throat pain, dental pain, hearing loss, congestion Cardiovascular: Denies: chest pain, palpitations, dyspnea on exertion Respiratory: Denies: cough, dyspnea, wheezes Gastrointestinal: Denies: abdominal pain, nausea, vomiting, diarrhea, constipation Musculoskeletal: Denies: joint swelling, joint pain Neurological: Denies: headache, weakness, numbness, memory loss Psychiatric: Reports: abnormal sleep pattern, suicidal ideation, irritability Results - Vital Signs Vital Signs: Temp Pulse Resp BP Pulse Ox 98.4 F 105 16 114/88 97 12/12/17 09:00 12/12/17 09:00 12/12/17 09:00 12/12/17 09:00 12/06/17 21:25 Assessment and Plan (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 Plan: Continue hospitalization, Close observation, Suicide Precautions per unit protocol, Encourage participation in unit milieu, Group Therapy, Monitor sleep, Monitor appetite Risks, benefits, side effects, alternatives discussed w/pt: Yes Patient agreeable to treatment: Yes Qualifiers: Complication of substance-induced condition: with delusions Qualified Code( s): F19.950 - Other psychoactive substance use, unspecified with psychoactive substance-induced psychotic disorder with delusions (2) Methamphetamine abuse Current visit: No Status: Acute Plan: Continue hospitalization, Close observation, Suicide Precautions per unit protocol, Encourage participation in unit milieu, Group Therapy, Monitor sleep, Monitor appetite Risks, benefits, side effects, alternatives discussed w/pt: Yes Patient agreeable to treatment: Yes (3) Altered mental status Current visit: No Status: Acute Plan: Continue hospitalization, Close observation, Suicide Precautions per unit protocol, Encourage participation in unit milieu, Group Therapy, Monitor sleep, Monitor appetite Risks, benefits, side effects, alternatives discussed w/pt: Yes Patient agreeable to treatment: Yes Qualifiers: Altered mental status type: disorientation Qualified Code(s): R41.0 - Disorientation, unspecified (4) Psychosis Current visit: No Status: Acute Plan: Continue hospitalization, Close observation, Suicide Precautions per unit protocol, Encourage participation in unit milieu, Group Therapy, Monitor sleep, Monitor appetite Risks, benefits, side effects, alternatives discussed w/pt: Yes Patient agreeable to treatment: Yes Qualifiers: Psychosis type: unspecified psychosis type Qualified Code(s): F29 - Unspecified psychosis not due to a substance or known physiological condition Consult Discharge Plan - Plan Additional Instructions: Patient has been started on Invega Sustenna. Dose 234mg administration date of 12/12/2017. Dose 156mg administration date of 12/17/2017. Dose 234mg due on 01/14/2018. Referrals: NONE,PCP [Primary Care Provider] - Psychiatry Exam - Constitutional Vitals: Temp Pulse Resp BP Pulse Ox 98.4 F 105 16 114/88 97 12/12/17 09:00 12/12/17 09:00 12/12/17 09:00 12/12/17 09:00 12/06/17 21:25 General appearance: age & developmentally appropriate, well-groomed, well- nourished - Musculoskeletal Gait: normal Station: relaxed Strength & Tone: normal for patient - Psychiatric Patient Orientation: Yes Person, Yes Time, Yes Place Level of alertness: Alert Behavior: calm, cooperative, nervous, anxious, agitated, uncooperative, guarded , impulsive, talkative Psychomotor activity: Increased Eye Contact: Maintains Eye Contact Mood Description: Anxious, Elevated, Euphoric Affect description: congruent with mood, euthymic Speech Volume: Normal Speech pattern: normal rate, normal rhythm, normal tone, fluent, spontaneous Language & Vocabulary: consistent with education, limited Thought Process: Loose Associations, Tangential, Disorganized Thought Content: No Suicidal ideation, No Homicidal ideation, No Overt delusions , Yes Preoccupation Perceptual Disturbances: Yes Reacting to internal stimuli, No Auditory hallucinations, No Visual hallucinations Attention Span Ability: Unable to Focus, Unable to Sustain Attention Memory Description: Grossly Intact Patient Reliability: Not Reliable Historian Fund of knowledge: Yes abstraction ability, Yes aware of current events Intelligence Estimate: Average Judgment: Poor Insight: Minimal
[2017-12-12] MEDS: *HR* LORazepam 2 MG/ML VIAL IM PRN (13:22)
[2017-12-12] MEDS: Haloperidol Lactate 5 MG/ML VIAL IM PRN (13:24)
[2017-12-12] MEDS: Acetaminophen 325 MG TABLET PO PRN (19:54)
[2017-12-12] MEDS: hydrOXYzine pamoate 25 MG CAPSULE PO PRN (20:27)
[2017-12-12] MEDS: OLANZapine 10 MG TAB.RAPDIS PO SCH (20:27)
[2017-12-13] MEDS: Acetaminophen 325 MG TABLET PO PRN (03:17)
[2017-12-13] MEDS: Benzocaine 20% 9 GM GEL..GRAM. TP PRN ×2 (03:46→19:10)
--- NOTE | 2017-12-13 11:18 | Psychiatry Progress Note ---
Date of Encounter: 12/13/17 Time of Encounter: 10:30 Subjective Interval history: Pt is a 27 yo,, male, never with no children, who presents for Acute psychosis R/O substance induced . Pt continues to deny substance abuse however presentation consistent with substance induced psychosis (bath salts). Pt hygine slowly improving with [place] environment. Pt compliant with injectable medications. Pt agreed to continue halfway injectable antipsychotics for stabilization. Pt denied any side effects to current medications. Pt noted he felt safe and comfortable on the unit.. Pt was in agreement with current treatment plan. Pt noted that he is doing pretty good today. Pt noted he slept really good last night. Pt noted his appetite is great. Pt rated his depression a 0, on a scale of zero to ten with ten being the worst and zero being none. Pt rate his anxiety a 0, on the same scale. Pt denied any auditory or visual hallucinations. Pt currently responding to internal stimuli. Pt denied any current thoughts to harm himself or anyone else. No TD noted, AIMS=0 Tobacco: Denies any current Alcohol: Denies any current Street: some meth and ice. Caffeine: 2-3 drinks per day Pt denies any hx of HIV, TBI, Hep C or Seizures. 1.Interval hx 2.Continue current medications 3.Review current labs 4.Pt had an opportunity to ask questions and discuss current treatment plan. 5.Supportive therapy was provided 6.Pt encouraged to consider group or individual therapy 7.Pt was in agreement with treatment plan. 8.Pt was educated on the risks benefits and side effects of current medications. 9. follow up [id number] mg in 5 days for mood stabilziation and noncompliance with oral medications then continue 234 mg q28 days for mood. Review of Systems Constitutional: Denies: fever, chills, weakness, weight change Eyes: Denies: eye pain, vision change Ears, Nose, Throat: Denies: ear pain, throat pain, dental pain, hearing loss, congestion Cardiovascular: Denies: chest pain, palpitations, dyspnea on exertion Respiratory: Denies: cough, dyspnea, wheezes Gastrointestinal: Denies: abdominal pain, nausea, vomiting, diarrhea, constipation Musculoskeletal: Denies: joint swelling, joint pain Neurological: Denies: headache, weakness, numbness, memory loss Psychiatric: Reports: abnormal sleep pattern, suicidal ideation, irritability Results - Vital Signs Vital Signs: Temp Pulse Resp BP Pulse Ox 97.5 F L 140 18 133/93 97 12/13/17 08:34 12/13/17 08:34 12/13/17 08:34 12/13/17 08:34 12/06/17 21:25 Assessment and Plan (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 Plan: Continue hospitalization, Close observation, Suicide Precautions per unit protocol, Encourage participation in unit milieu, Group Therapy, Monitor sleep, Monitor appetite Risks, benefits, side effects, alternatives discussed w/pt: Yes Patient agreeable to treatment: Yes Qualifiers: Complication of substance-induced condition: with delusions Qualified Code( s): F19.950 - Other psychoactive substance use, unspecified with psychoactive substance-induced psychotic disorder with delusions (2) Methamphetamine abuse Current visit: No Status: Acute Plan: Continue hospitalization, Close observation, Suicide Precautions per unit protocol, Encourage participation in unit milieu, Group Therapy, Monitor sleep, Monitor appetite Risks, benefits, side effects, alternatives discussed w/pt: Yes Patient agreeable to treatment: Yes (3) Altered mental status Current visit: No Status: Acute Plan: Continue hospitalization, Close observation, Suicide Precautions per unit protocol, Encourage participation in unit milieu, Group Therapy, Monitor sleep, Monitor appetite Risks, benefits, side effects, alternatives discussed w/pt: Yes Patient agreeable to treatment: Yes Qualifiers: Altered mental status type: disorientation Qualified Code(s): R41.0 - Disorientation, unspecified (4) Psychosis Current visit: No Status: Acute Plan: Continue hospitalization, Close observation, Suicide Precautions per unit protocol, Encourage participation in unit milieu, Group Therapy, Monitor sleep, Monitor appetite Risks, benefits, side effects, alternatives discussed w/pt: Yes Patient agreeable to treatment: Yes Qualifiers: Psychosis type: unspecified psychosis type Qualified Code(s): F29 - Unspecified psychosis not due to a substance or known physiological condition Consult Discharge Plan - Plan Additional Instructions: Patient has been started on Invega Sustenna. Dose 234mg administration date of 12/12/2017. Dose 156mg administration date of 12/17/2017. Dose 234mg due on 01/14/2018. Referrals: NONE,PCP [Primary Care Provider] - Psychiatry Exam - Constitutional Vitals: Temp Pulse Resp BP Pulse Ox 97.5 F L 140 18 133/93 97 12/13/17 08:34 12/13/17 08:34 12/13/17 08:34 12/13/17 08:34 12/06/17 21:25 General appearance: age & developmentally appropriate, well-groomed, well- nourished - Musculoskeletal Gait: normal Station: relaxed Strength & Tone: normal for patient - Psychiatric Patient Orientation: Yes Person, Yes Time, Yes Place Level of alertness: Alert Behavior: cooperative, agitated, restless, suspicious, impulsive Psychomotor activity: Repetitive movements Eye Contact: Diverts Contact Mood Description: Euphoric, Expansive Affect description: euthymic, anxious Speech Volume: Normal Speech pattern: normal tone, rambling, excessive Language & Vocabulary: consistent with education Thought Process: Loose Associations, Tangential, Disorganized Thought Content: Yes Overt delusions Perceptual Disturbances: No Auditory hallucinations, No Visual hallucinations Attention Span Ability: Unable to Focus, Unable to Sustain Attention Memory Description: Recent Impaired Patient Reliability: Not Reliable Historian Fund of knowledge: Yes average Intelligence Estimate: Average Judgment: Poor Insight: Minimal
[2017-12-13] MEDS: Haloperidol Lactate 5 MG/ML VIAL IM PRN (14:51)
[2017-12-13] MEDS: *HR* LORazepam 2 MG/ML VIAL IM PRN (14:52)
[2017-12-13] MEDS: Fluticasone Propionate Nasal 50 MCG/SPRAY BOTTLE NS SCH (19:03)
[2017-12-13] MEDS: Ibuprofen 400 MG TABLET PO PRN (19:38)
[2017-12-13] MEDS: OLANZapine 10 MG TAB.RAPDIS PO SCH (20:42)
[2017-12-14] MEDS: Benzocaine 20% 9 GM GEL..GRAM. TP PRN (06:08)
[2017-12-14] MEDS: Ibuprofen 400 MG TABLET PO PRN (06:12)
[2017-12-14] MEDS: *HR* LORazepam 2 MG/ML VIAL IM PRN (06:18)
[2017-12-14] MEDS: Haloperidol Lactate 5 MG/ML VIAL IM PRN (06:19)
[2017-12-14] MEDS: Fluticasone Propionate Nasal 50 MCG/SPRAY BOTTLE NS SCH (09:48)
--- NOTE | 2017-12-14 12:12 | Psychiatry Progress Note ---
Date of Encounter: 12/14/17 Time of Encounter: 10:15 Subjective Interval history: Pt is a 27 yo,, male, never with no children, who presents for Acute psychosis R/O substance induced . Pt continues to deny substance abuse however presentation consistent with substance induced psychosis (bath salts). Pt hygine continues to improve with therapeutic environment. Pt compliant with injectable medications. Pt and family were agreed to continue mcc injectable antipsychotics for stabilization pt again was educated on the risks benefits and side effects of current medications including no medications, and pt was in agreement. Pt denied any side effects to current medications. Pt noted he felt safe and comfortable on the unit.. Pt was in agreement with current treatment plan. Pt noted that he is doing pretty good today. Pt noted he slept really good last night. Pt noted his appetite is great. Pt rated his depression a 0, on a scale of zero to ten with ten being the worst and zero being none. Pt rate his anxiety a 0, on the same scale. Pt denied any auditory or visual hallucinations. Pt currently responding to internal stimuli. Pt denied any current thoughts to harm himself or anyone else. Family meeting today with his mother Sandy Stovall, and BOAZ hood, family was in agreement with treatment team and agreed pt need to remain on the unit until Sunday12/17/2017 for stabilization and medication titration. No TD noted, AIMS=0 Tobacco: Denies any current Alcohol: Denies any current Street: some meth and ice. Caffeine: 2-3 drinks per day Pt denies any hx of HIV, TBI, Hep C or Seizures. 1.Interval hx 2.Continue current medications 3.Review current labs 4.Pt had an opportunity to ask questions and discuss current treatment plan. 5.Supportive therapy was provided 6.Pt encouraged to consider group or individual therapy 7.Pt was in agreement with treatment plan. 8.Pt was educated on the risks benefits and side effects of current medications. 9. follow up [id number] mg in 5 days (12/17/2017) for mood stabilization and noncompliance with oral medications then continue 234 mg q28 days for mood. 10. Coordinating for possible D/C on Sunday12/17/2017 if pt is stable, family was coordinated and in agreement. Review of Systems Constitutional: Denies: fever, chills, weakness, weight change Eyes: Denies: eye pain, vision change Ears, Nose, Throat: Denies: ear pain, throat pain, dental pain, hearing loss, congestion Cardiovascular: Denies: chest pain, palpitations, dyspnea on exertion Respiratory: Denies: cough, dyspnea, wheezes Gastrointestinal: Denies: abdominal pain, nausea, vomiting, diarrhea, constipation Musculoskeletal: Denies: joint swelling, joint pain Neurological: Denies: headache, weakness, numbness, memory loss Psychiatric: Reports: abnormal sleep pattern, suicidal ideation, irritability Results - Vital Signs Vital Signs: Temp Pulse Resp BP Pulse Ox 99.3 F 101 18 133/90 97 12/14/17 08:26 12/14/17 08:26 12/14/17 08:26 12/13/17 20:53 12/06/17 21:25 Assessment and Plan (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 Plan: Continue hospitalization, Close observation, Suicide Precautions per unit protocol, Encourage participation in unit milieu, Group Therapy, Monitor sleep, Monitor appetite Risks, benefits, side effects, alternatives discussed w/pt: Yes Patient agreeable to treatment: Yes Qualifiers: Complication of substance-induced condition: with delusions Qualified Code( s): F19.950 - Other psychoactive substance use, unspecified with psychoactive substance-induced psychotic disorder with delusions (2) Methamphetamine abuse Current visit: No Status: Acute Plan: Continue hospitalization, Close observation, Suicide Precautions per unit protocol, Encourage participation in unit milieu, Group Therapy, Monitor sleep, Monitor appetite Risks, benefits, side effects, alternatives discussed w/pt: Yes Patient agreeable to treatment: Yes (3) Altered mental status Current visit: No Status: Acute Plan: Continue hospitalization, Close observation, Suicide Precautions per unit protocol, Encourage participation in unit milieu, Group Therapy, Monitor sleep, Monitor appetite Risks, benefits, side effects, alternatives discussed w/pt: Yes Patient agreeable to treatment: Yes Qualifiers: Altered mental status type: disorientation Qualified Code(s): R41.0 - Disorientation, unspecified (4) Psychosis Current visit: No Status: Acute Plan: Continue hospitalization, Close observation, Suicide Precautions per unit protocol, Encourage participation in unit milieu, Group Therapy, Monitor sleep, Monitor appetite Risks, benefits, side effects, alternatives discussed w/pt: Yes Patient agreeable to treatment: Yes Qualifiers: Psychosis type: unspecified psychosis type Qualified Code(s): F29 - Unspecified psychosis not due to a substance or known physiological condition Consult Discharge Plan - Plan Additional Instructions: Patient has been started on Invega Sustenna. Dose 234mg administration date of 12/12/2017. Dose 156mg administration date of 12/17/2017. Dose 234mg due on . The prescription for this dos has been sent to your pharmacy. Be sure to pick it up from the pharmacy and take it with you to you4 01/14/2018 psychiatry appointment so the nurse can give you the injection in the office. Referrals: [facility] [Outside] - 01/14/18 10:40 am (The above appointment is with Dr. Lin for outpatient psychiatric assessment and medication management services. Please bring your Invega Sustenna that was sent to your pharmacy with you to this appointment so your injection may be given. Please arrive 10 minutes early to complete the check-in process. Please bring your insurance card (or HCAP award letter) and photo ID. If you are unable to keep this appointment, 24 hour business notice of cancellation is expected. If you miss your new patient appointment with any provider without providing appropriate notice, you cannot be re-scheduled for that service. The above appointment(s) reflects first availability. You may contact the office regularly to check for cancellations that may allow you to be seen sooner. The [facility] is the 1st building behind [facility] in [place], [place]. Please do not use GPS or mapping apps to locate the office, as they will take you to the wrong location. ) [facility] [Outside] - 12/20/17 10:00 am (The above appointment is with Brooklyn Hi, counselor at [facility]. Your first appointment will be very thorough and the total appointment time will take between two and three hours. You will be completing paperwork, meeting with a counselor and a nurse, and developing a treatment plan. You will receive follow- up appointments for on-going services , which could include community support, mental health and substance abuse counseling, groups/partial hospitalization programming, medication assisted treatment, and psychiatric medication management. Please bring the following with you to your first visit to the clinic: 1) proof of household income (two consecutive pay stubs, social security award letter, bank statement, statement letter from [employer], child support statement, IRS 1040 or W2 form, or a statement from the person who financially supports you stating they help provide for your basic needs), 2) proof of residency (drivers license, a piece of mail showing your address, a statement from person you live with verifying you live at their address), 3) your social security card, 4) photo ID, and 5) your insurance card (if you have commercial insurance you must call to obtain a prior authorization number before you arrive to your first appointment). If you do not bring these items, it is possible that you may not be seen. ) Psychiatry Exam - Constitutional Vitals: Temp Pulse Resp BP Pulse Ox 99.3 F 101 18 133/90 97 12/14/17 08:26 12/14/17 08:26 12/14/17 08:26 12/13/17 20:53 12/06/17 21:25 General appearance: age & developmentally appropriate, well-groomed, well- nourished - Musculoskeletal Gait: normal Station: relaxed Strength & Tone: normal for patient - Psychiatric Patient Orientation: Yes Person, Yes Time, Yes Place Level of alertness: Alert Behavior: anxious, restless Psychomotor activity: Increased Eye Contact: Maintains Eye Contact Mood Description: Elevated Affect description: congruent with mood, full range Speech Volume: Normal Speech pattern: normal rate, normal rhythm, normal tone, fluent, spontaneous Language & Vocabulary: consistent with education Thought Process: Loose Associations, Tangential, Racing Thought Content: No Suicidal ideation, No Homicidal ideation, Yes Overt delusions, Yes Thought insertion Perceptual Disturbances: Yes Reacting to internal stimuli, No Auditory hallucinations, No Visual hallucinations Attention Span Ability: Unable to Focus, Unable to Sustain Attention Memory Description: Grossly Intact Patient Reliability: Not Reliable Historian Fund of knowledge: Yes abstraction ability, Yes aware of current events Intelligence Estimate: Average Judgment: Poor Insight: Minimal
[2017-12-14] MEDS ORDERED: Ibuprofen 800 MG TABLET PO ONE (14:34)
[2017-12-14] MEDS: OLANZapine 10 MG TAB.RAPDIS PO SCH (22:44)
[2017-12-15] MEDS: *HR* LORazepam 1 MG TABLET PO PRN (07:00)
[2017-12-15] MEDS: Acetaminophen 325 MG TABLET PO PRN (07:00)
[2017-12-15] MEDS: Fluticasone Propionate Nasal 50 MCG/SPRAY BOTTLE NS SCH ×2 (09:29→16:21)
--- NOTE | 2017-12-15 09:42 | Psychiatry Progress Note ---
Date of Encounter: 12/15/17 Time of Encounter: 09:39 Subjective Interval history: Client familiar to this proposal writer from last weekend. Per staff there are times he seems improved and at other times he does not look any better. Transitioning to Sustenna. However, client is trying to stop PO meds prematurely. Still receiving prns daily. Today he is wearing an orange T-shirt wrapped around his head. Claims this is to keep him warm. Continues to deny drug use. Family meeting held yesterday and family reporting no drug use either. Probate hearing next week. Still looks psychotic and may not be safe to discharge prior to hearing. Review of Systems Constitutional: Denies: fever, chills, weakness, weight change Eyes: Denies: eye pain, vision change Ears, Nose, Throat: Denies: ear pain, throat pain, dental pain, hearing loss, congestion Cardiovascular: Denies: chest pain, palpitations, dyspnea on exertion Respiratory: Denies: cough, dyspnea, wheezes Gastrointestinal: Denies: abdominal pain, nausea, vomiting, diarrhea, constipation Musculoskeletal: Denies: joint swelling, joint pain Neurological: Denies: headache, weakness, numbness, memory loss Psychiatric: Reports: abnormal sleep pattern, suicidal ideation, irritability Results - Vital Signs Vital Signs: Temp Pulse Resp BP Pulse Ox 99 F 85 20 134/101 97 12/14/17 20:03 12/14/17 20:03 12/14/17 20:03 12/14/17 20:03 12/06/17 21:25 Assessment and Plan (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 Plan: Continue hospitalization, Close observation, Suicide Precautions per unit protocol, Encourage participation in unit milieu, Group Therapy, Monitor sleep, Monitor appetite Risks, benefits, side effects, alternatives discussed w/pt: Yes Patient agreeable to treatment: Yes Qualifiers: Complication of substance-induced condition: with delusions Qualified Code( s): F19.950 - Other psychoactive substance use, unspecified with 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 Dose 234mg administration date of 12/12/2017. Dose 156mg administration date of 12/17/2017. Dose 234mg due on . The prescription for this dos has been sent to your pharmacy. Be sure to pick it up from the pharmacy and take it with you to you4 01/14/2018 psychiatry appointment so the nurse can give you the injection in the office. Referrals: [facility] [Outside] - 01/14/18 10:40 am (The above appointment is with Dr. Lin for outpatient psychiatric assessment and medication management services. Please bring your Invega Sustenna that was sent to your pharmacy with you to this appointment so your injection may be given. Please arrive 10 minutes early to complete the check-in process. Please bring your insurance card (or HCAP award letter) and photo ID. If you are unable to keep this appointment, 24 hour business notice of cancellation is expected. If you miss your new patient appointment with any provider without providing appropriate notice, you cannot be re-scheduled for that service. The above appointment(s) reflects first availability. You may contact the office regularly to check for cancellations that may allow you to be seen sooner. The [facility] is the [facility] in [place], [place]. Please do not use GPS or mapping apps to locate the office, as they will take you to the wrong location. ) [facility] [Outside] - 12/20/17 10:00 am (The above appointment is with Brooklyn Hi, counselor at [facility]. Your first appointment will be very thorough and the total appointment time will take between two and three hours. You will be completing paperwork, meeting with a counselor and a nurse, and developing a treatment plan. You will receive follow- up appointments for on-going services , which could include community support, mental health and substance abuse counseling, groups/partial hospitalization programming, medication assisted treatment, and psychiatric medication management. Please bring the following with you to your first visit to the clinic: 1) proof of household income (two consecutive pay stubs, social security award letter, bank statement, statement letter from [facility], child support statement, IRS 1040 or W2 form, or a statement from the person who financially supports you stating they help provide for your basic needs), 2) proof of residency (drivers license, a piece of mail showing your address, a statement from person you live with verifying you live at their address), 3) your social security card, 4) photo ID, and 5) your insurance card (if you have commercial insurance you must call to obtain a prior authorization number before you arrive to your first appointment). If you do not bring these items, it is possible that you may not be seen. ) Psychiatry Exam - Constitutional Vitals: Temp Pulse Resp BP Pulse Ox 99 F 85 20 134/101 97 12/14/17 20:03 12/14/17 20:03 12/14/17 20:03 12/14/17 20:03 12/06/17 21:25 General appearance: unkempt, disheveled - Musculoskeletal Gait: normal Station: relaxed Strength & Tone: normal for patient - Psychiatric Patient Orientation: Yes Person, Yes Time, Yes Place Level of alertness: Alert Behavior: calm, cooperative Psychomotor activity: Increased Eye Contact: Minimal Contact Mood Description: Irritable Affect description: congruent with mood Speech Volume: Normal Speech pattern: normal rate, normal rhythm, normal tone, fluent, spontaneous Language & Vocabulary: consistent with education Thought Process: Linear Thought Content: No Suicidal ideation, No Homicidal ideation, No Overt delusions Perceptual Disturbances: Yes Reacting to internal stimuli Attention Span Ability: Unable to Focus Memory Description: Immediate Intact, Recent Impaired, Remote Intact Patient Reliability: Not Reliable Historian Fund of knowledge: Yes abstraction ability, Yes aware of current events Intelligence Estimate: Average Judgment: Limited Insight: Minimal
[2017-12-15] MEDS: OLANZapine 10 MG TAB.RAPDIS PO SCH (22:47)
[2017-12-16] MEDS: Ibuprofen 400 MG TABLET PO PRN (03:07)
[2017-12-16] MEDS: Fluticasone Propionate Nasal 50 MCG/SPRAY BOTTLE NS SCH ×2 (08:04→15:34)
--- NOTE | 2017-12-16 10:12 | Psychiatry Progress Note ---
Date of Encounter: 12/16/17 Time of Encounter: 10:09 Subjective Interval history: Client is still all over the place. Refused hs meds last night. Told this insurance writer he did not take them because "I was tired." However, he did not sleep well last night. Agrees to take hs meds tonight. Also agrees to comply with Sustenna injection. Unclear what his baseline is. Family reported during family meeting on Sunday that client is not far from his baseline. However, at time client presented to hospital they said this is the worst he has ever been. Client does not look that different from initial presentation. He has slowed some but he is still really disorganized. According to staff he is constantly in the shower but he never uses soap. Female peer told him yesterday that he was malodorous and needed to take better care of himself. Review of Systems Constitutional: Denies: fever, chills, weakness, weight change Eyes: Denies: eye pain, vision change Ears, Nose, Throat: Denies: ear pain, throat pain, dental pain, hearing loss, congestion Cardiovascular: Denies: chest pain, palpitations, dyspnea on exertion Respiratory: Denies: cough, dyspnea, wheezes Gastrointestinal: Denies: abdominal pain, nausea, vomiting, diarrhea, constipation Musculoskeletal: Denies: joint swelling, joint pain Neurological: Denies: headache, weakness, numbness, memory loss Psychiatric: Reports: abnormal sleep pattern, suicidal ideation, irritability Results - Vital Signs Vital Signs: Temp Pulse Resp BP Pulse Ox 98.6 F 96 16 117/83 97 12/16/17 08:30 12/16/17 08:30 12/16/17 08:30 12/16/17 08:30 12/06/17 21:25 Assessment and Plan (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 Plan: Continue hospitalization, Close observation, Suicide Precautions per unit protocol, Encourage participation in unit milieu, Group Therapy, Monitor sleep, Monitor appetite Risks, benefits, side effects, alternatives discussed w/pt: Yes Patient agreeable to treatment: Yes Qualifiers: Complication of substance-induced condition: with delusions Qualified Code( s): F19.950 - Other psychoactive substance use, unspecified with 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 Dose 234mg administration date of 12/12/2017. Dose 156mg administration date of 12/17/2017. Dose 234mg due on . The prescription for this dos has been sent to your pharmacy. Be sure to pick it up from the pharmacy and take it with you to you4 01/14/2018 psychiatry appointment so the nurse can give you the injection in the office. Referrals: [facility] [Outside] - 01/14/18 10:40 am (The above appointment is with Dr. Lin for outpatient psychiatric assessment and medication management services. Please bring your Invega Sustenna that was sent to your pharmacy with you to this appointment so your injection may be given. Please arrive 10 minutes early to complete the check-in process. Please bring your insurance card (or [facility] award letter) and photo ID. If you are unable to keep this appointment, 24 hour business notice of cancellation is expected. If you miss your new patient appointment with any provider without providing appropriate notice, you cannot be re-scheduled for that service. The above appointment(s) reflects first availability. You may contact the office regularly to check for cancellations that may allow you to be seen sooner. The [facility] is the [address] [place] [address] behind [facility] in [place], [place]. Please do not use GPS or mapping apps to locate the office, as they will take you to the wrong location. ) [facility] [Outside] - 12/20/17 10:00 am (The above appointment is with Brooklyn Hi, counselor at [facility]. Your first appointment will be very thorough and the total appointment time will take between two and three hours. You will be completing paperwork, meeting with a counselor and a nurse, and developing a treatment plan. You will receive follow- up appointments for on-going services , which could include community support, mental health and substance abuse counseling, groups/partial hospitalization programming, medication assisted treatment, and psychiatric medication management. Please bring the following with you to your first visit to the clinic: 1) proof of household income (two consecutive pay stubs, social security award letter, bank statement, statement letter from [facility], child support statement, IRS 1040 or W2 form, or a statement from the person who financially supports you stating they help provide for your basic needs), 2) proof of residency (drivers license, a piece of mail showing your address, a statement from person you live with verifying you live at their address), 3) your social security card, 4) photo ID, and 5) your insurance card (if you have commercial insurance you must call to obtain a prior authorization number before you arrive to your first appointment). If you do not bring these items, it is possible that you may not be seen. ) Psychiatry Exam - Constitutional Vitals: Temp Pulse Resp BP Pulse Ox 98.6 F 96 16 117/83 97 12/16/17 08:30 12/16/17 08:30 12/16/17 08:30 12/16/17 08:30 12/06/17 21:25 General appearance: unkempt, disheveled - Musculoskeletal Gait: normal Station: relaxed Strength & Tone: normal for patient - Psychiatric Patient Orientation: Yes Person, Yes Time, Yes Place Level of alertness: Alert Behavior: restless Psychomotor activity: Increased Eye Contact: Minimal Contact Mood Description: Elevated Affect description: congruent with mood Speech Volume: Normal Speech pattern: normal rate, normal rhythm, normal tone, fluent, spontaneous Language & Vocabulary: consistent with education Thought Process: Tangential Thought Content: No Suicidal ideation, No Homicidal ideation, No Overt delusions Perceptual Disturbances: Yes Reacting to internal stimuli Attention Span Ability: Unable to Focus, Unable to Sustain Attention Memory Description: Immediate Intact, Recent Impaired, Remote Intact Patient Reliability: Not Reliable Historian Fund of knowledge: Yes abstraction ability, Yes aware of current events Intelligence Estimate: Average Judgment: Limited Insight: Minimal
[2017-12-16] MEDS: OLANZapine 10 MG TAB.RAPDIS PO SCH (21:00)
[2017-12-16] MEDS: traZODone 50 MG TABLET PO PRN (21:00)
[2017-12-17] MEDS: Fluticasone Propionate Nasal 50 MCG/SPRAY BOTTLE NS SCH (08:31)
[2017-12-17] MEDS ORDERED: PALIPERIDONE PALMITATE 156 MG IM SCH (09:00)
[2017-12-17] MEDS ORDERED: Patient Taking Own Medication 1 EACH IM ONE (09:00)
--- NOTE | 2017-12-17 11:08 | Psychiatry Progress Note ---
Date of Encounter: 12/17/17 Time of Encounter: 10:45 Subjective Interval history: Patient is a 27-year-old white male. He was admitted with schizophreniform disorder. Chief complaint: I would like to go home today. Mild lady is crying. I took the injection. History of present illness:. The patient has been observed over this period of time. I had admitted him 12/06/2017. The patient was felt not to be at baseline in the most recent meeting. Today he says that he would like to see the previous attending because he wants to be released. The patient showed some deficits in cognition during his previous meeting. He refuses medicine last night he did not take the second injection of paliperidone. Nonetheless, the patient is requested to leave today. He has a court hearing tomorrow. He was told that he would need to stay for the hearing. He was distressed and asked that he be reconsidered for discharge. The reader is deferred to the previous notes the patient has not improved significantly. Today he is more agitated and may require any when necessary medication. 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 Current visit: Yes Status: Acute Risks, benefits, side effects, alternatives discussed w/pt: Yes Patient agreeable to treatment: Yes (3) Patient's noncompliance with other medical treatment and regimen Current visit: Yes Status: Chronic Risks, benefits, side effects, alternatives discussed w/pt: Yes Patient agreeable to treatment: Yes (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 Risks, benefits, side effects, alternatives discussed w/pt: Yes Patient agreeable to treatment: Yes Qualifiers: Complication of substance-induced condition: with delusions Qualified Code( s): F19.950 - Other psychoactive substance use, unspecified with 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 Current visit: No Status: Acute Plan: Continue hospitalization, Close observation, Suicide Precautions per unit protocol, Encourage participation in unit milieu, Group Therapy, Monitor sleep, Monitor appetite, Secure weapons, Family/Supportive other meeting Risks, benefits, side effects, alternatives discussed w/pt: Yes Patient agreeable to treatment: Yes (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 Dose 234mg administration date of 12/12/2017. Dose 156mg administration date of 12/17/2017. Dose 234mg due on . The prescription for this dos has been sent to your pharmacy. Be sure to pick it up from the pharmacy and take it with you to you4 01/14/2018 psychiatry appointment so the nurse can give you the injection in the office. Referrals: [facility] [Outside] - 01/14/18 10:40 am (The above appointment is with Dr. Lin for outpatient psychiatric assessment and medication management services. Please bring your Invega Sustenna that was sent to your pharmacy with you to this appointment so your injection may be given. Please arrive 10 minutes early to complete the check-in process. Please bring your insurance card (or [facility] award letter) and photo ID. If you are unable to keep this appointment, 24 hour business notice of cancellation is expected. If you miss your new patient appointment with any provider without providing appropriate notice, you cannot be re-scheduled for that service. The above appointment(s) reflects first availability. You may contact the office regularly to check for cancellations that may allow you to be seen sooner. The [facility] is the 1st building behind [facility] in [place], [place]. Please do not use GPS or mapping apps to locate the office, as they will take you to the wrong location. ) [facility] [Outside] - 12/20/17 10:00 am (The above appointment is with Brooklyn Hi, counselor at [facility]. Your first appointment will be very thorough and the total appointment time will take between two and three hours. You will be completing paperwork, meeting with a counselor and a nurse, and developing a treatment plan. You will receive follow- up appointments for on-going services , which could include community support, mental health and substance abuse counseling, groups/partial hospitalization programming, medication assisted treatment, and psychiatric medication management. Please bring the following with you to your first visit to the clinic: 1) proof of household income (two consecutive pay stubs, social security award letter, bank statement, statement letter from [facility], child support statement, IRS 1040 or W2 form, or a statement from the person who financially supports you stating they help provide for your basic needs), 2) proof of residency (drivers license, a piece of mail showing your address, a statement from person you live with verifying you live at their address), 3) your social security card, 4) photo ID, and 5) your insurance card (if you have commercial insurance you must call to obtain a prior authorization number before you arrive to your first appointment). If you do not bring these items, it is possible that you may not be seen. ) Psychiatry Exam - Constitutional Vitals: Temp Pulse Resp BP Pulse Ox 99.2 F 103 18 136/98 97 12/17/17 08:52 12/17/17 08:52 12/17/17 08:52 12/17/17 08:52 12/06/17 21:25 General appearance: age & developmentally appropriate, thin - Musculoskeletal Gait: brisk Station: shaky Strength & Tone: normal for patient - Psychiatric Patient Orientation: Yes Person, Yes Time, Yes Place, Yes Circumstance Level of alertness: Alert Behavior: restless, uncooperative, dramatic Psychomotor activity: Increased Eye Contact: Maintains Eye Contact Mood Description: Anxious, Expansive, Irritable Affect description: inappropriate to situation Speech Volume: Excessive Variation Speech pattern: disorganized, excessive, repetetive Language & Vocabulary: high school level Thought Process: Circumstantial, Evasive Thought Content: Yes Obsessive thoughts Perceptual Disturbances: Yes Auditory hallucinations Attention Span Ability: Unable to Sustain Attention Memory Description: Immediate Impaired Patient Reliability: Questionable Historian Fund of knowledge: Yes average Intelligence Estimate: Below Average Judgment: Poor Insight: None
[2017-12-17] MEDS: *HR* LORazepam 1 MG TABLET PO PRN (13:41)
[2017-12-17] MEDS: OLANZapine 10 MG TAB.RAPDIS PO SCH ×2 (22:10→22:28)
[2017-12-17] MEDS: Acetaminophen 325 MG TABLET PO PRN (22:28)
[2017-12-17] MEDS: Benzocaine 20% 9 GM GEL..GRAM. TP PRN (22:29)
[2017-12-18] MEDS: Fluticasone Propionate Nasal 50 MCG/SPRAY BOTTLE NS SCH (09:00)
--- NOTE | 2017-12-18 10:21 | Psychiatry Progress Note ---
Date of Encounter: 12/18/17 Time of Encounter: 10:15 Subjective Interval history: Right ear: The patient is a 27-year-old single white male. Chief complaint I am ready to go today. History of present illness. The patient did well. He received an injection of Haldol Ativan and Benadryl yesterday and he was able to slow down he did not have to do any push ups or excessive activity. The patient did not want have another injection today but he does agree to the paliperidone. This is a long- acting injectable antipsychotic. I asked him about the paliperidone to help continue until his next appointment and he agreed that this would be a good idea when asked about Zyprexa and he said no. The patient was not felt to be good candidate for Ativan. I asked about topiramate he did not feel that that was necessary in fact he recognizes that taking pills is difficult and he would prefer to be on the injection. He is aware of his next appointment 12/20/2017 and January 24 we identified the location of the [facility]. He knew where he was in some local establishments. He noted no side effects at this time and he plans to go back to work. He notes that there is a probate hearing today with a forced medication order pending. He may ask his girlfriend Jammie to come and he plans to test of divided to the fact that he agrees to the treatment plan I would like to transition to an outpatient setting. 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 Current visit: Yes Status: Acute Risks, benefits, side effects, alternatives discussed w/pt: Yes Patient agreeable to treatment: Yes (3) Patient's noncompliance with other medical treatment and regimen Current visit: Yes Status: Chronic Risks, benefits, side effects, alternatives discussed w/pt: Yes Patient agreeable to treatment: Yes (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 Risks, benefits, side effects, alternatives discussed w/pt: Yes Patient agreeable to treatment: Yes Qualifiers: Complication of substance-induced condition: with delusions Qualified Code( s): F19.950 - Other psychoactive substance use, unspecified with 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 Current visit: No Status: Acute Risks, benefits, side effects, alternatives discussed w/pt: Yes Patient agreeable to treatment: Yes (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 Dose 234mg administration date of 12/12/2017. Dose 156mg administration date of 12/17/2017. Dose 234mg due on . The prescription for this dos has been sent to your pharmacy. Be sure to pick it up from the pharmacy and take it with you to you4 01/14/2018 psychiatry appointment so the nurse can give you the injection in the office. Referrals: [facility] [Outside] - 01/14/18 10:40 am (The above appointment is with Dr. Lin for outpatient psychiatric assessment and medication management services. Please bring your Invega Sustenna that was sent to your pharmacy with you to this appointment so your injection may be given. Please arrive 10 minutes early to complete the check-in process. Please bring your insurance card (or [facility]) and photo ID. If you are unable to keep this appointment, 24 hour business notice of cancellation is expected. If you miss your new patient appointment with any provider without providing appropriate notice, you cannot be re-scheduled for that service. The above appointment(s) reflects first availability. You may contact the office regularly to check for cancellations that may allow you to be seen sooner. The [facility] is the 1st building behind [facility] in [place], [place]. Please do not use GPS or mapping apps to locate the office, as they will take you to the wrong location. ) [facility] [Outside] - 12/20/17 10:00 am (The above appointment is with Brooklyn Hi, counselor at [facility]. Your first appointment will be very thorough and the total appointment time will take between two and three hours. You will be completing paperwork, meeting with a counselor and a nurse, and developing a treatment plan. You will receive follow- up appointments for on-going services , which could include community support, mental health and substance abuse counseling, groups/partial hospitalization programming, medication assisted treatment, and psychiatric medication management. Please bring the following with you to your first visit to the clinic: 1) proof of household income (two consecutive pay stubs, social security award letter, bank statement, statement letter from [facility], child support statement, IRS 1040 or W2 form, or a statement from the person who financially supports you stating they help provide for your basic needs), 2) proof of residency (drivers license, a piece of mail showing your address, a statement from person you live with verifying you live at their address), 3) your social security card, 4) photo ID, and 5) your insurance card (if you have commercial insurance you must call to obtain a prior authorization number before you arrive to your first appointment). If you do not bring these items, it is possible that you may not be seen. ) Psychiatry Exam - Constitutional Vitals: Temp Pulse Resp BP Pulse Ox 99.0 F 130 18 122/92 97 12/18/17 09:00 12/18/17 09:00 12/18/17 09:00 12/18/17 09:00 12/06/17 21:25 General appearance: age & developmentally appropriate, thin - Musculoskeletal Gait: brisk Station: shaky - Psychiatric Patient Orientation: Yes Person, Yes Time, Yes Place, Yes Circumstance Level of alertness: Alert Behavior: restless, impulsive, talkative Psychomotor activity: Increased Eye Contact: Maintains Eye Contact Mood Description: Anxious, Expansive Affect description: full range, inappropriate to situation Speech Volume: Excessive Variation Speech pattern: normal rate Language & Vocabulary: consistent with education Thought Process: Loose Associations Thought Content: Yes Intact Perceptual Disturbances: Yes Reacting to internal stimuli Attention Span Ability: Capable of Focused Attention Memory Description: Grossly Intact Patient Reliability: Questionable Historian Fund of knowledge: Yes average Intelligence Estimate: Average Judgment: Fair Insight: Partial
[2017-12-18] MEDS: hydrOXYzine pamoate 25 MG CAPSULE PO PRN (14:00)
[2017-12-18] MEDS: Ibuprofen 400 MG TABLET PO PRN (17:51)
[2017-12-18] MEDS: OLANZapine 10 MG TAB.RAPDIS PO SCH (20:29)
[2017-12-18] MEDS: traZODone 50 MG TABLET PO PRN (20:30)
[2017-12-18] MEDS: Topiramate 25 MG TABLET PO SCH (20:30)
[2017-12-19] MEDS: Fluticasone Propionate Nasal 50 MCG/SPRAY BOTTLE NS SCH (09:28)
[2017-12-19] MEDS: Topiramate 25 MG TABLET PO SCH ×2 (09:29→21:14)
--- NOTE | 2017-12-19 11:28 | Psychiatry Progress Note ---
Date of Encounter: 12/19/17 Time of Encounter: 10:30 Subjective Interval history: ID the patient is a 27-year-old white male. Chief complaint I would like to go home today but going home tomorrow as great. I need a new pharmacy. HPI: Patient is improved. He is tolerating topiramate. He is scheduled for an appointment tomorrow. The treatment team like him to follow up with transportation directly. 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 Current visit: Yes Status: Acute Risks, benefits, side effects, alternatives discussed w/pt: Yes Patient agreeable to treatment: Yes (3) Patient's noncompliance with other medical treatment and regimen Current visit: Yes Status: Chronic Risks, benefits, side effects, alternatives discussed w/pt: Yes Patient agreeable to treatment: Yes (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 Risks, benefits, side effects, alternatives discussed w/pt: Yes Patient agreeable to treatment: Yes Qualifiers: Complication of substance-induced condition: with delusions Qualified Code( s): F19.950 - Other psychoactive substance use, unspecified with 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 Current visit: No Status: Acute Plan: Continue hospitalization, Close observation, Suicide Precautions per unit protocol, Encourage participation in unit milieu, Group Therapy, Monitor sleep, Monitor appetite, Secure weapons Risks, benefits, side effects, alternatives discussed w/pt: Yes Patient agreeable to treatment: Yes (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 Dose 234mg administration date of 12/12/2017. Dose 156mg administration date of 12/17/2017. Dose 234mg due on . The prescription for this dos has been sent to your pharmacy. Be sure to pick it up from the pharmacy and take it with you to you4 01/14/2018 psychiatry appointment so the nurse can give you the injection in the office. Referrals: [facility] [Outside] - 01/14/18 10:40 am (The above appointment is with Dr. Lin for outpatient psychiatric assessment and medication management services. Please bring your Invega Sustenna that was sent to your pharmacy with you to this appointment so your injection may be given. Please arrive 10 minutes early to complete the check-in process. Please bring your insurance card (or [employer] award letter) and photo ID. If you are unable to keep this appointment, 24 hour business notice of cancellation is expected. If you miss your new patient appointment with any provider without providing appropriate notice, you cannot be re-scheduled for that service. The above appointment(s) reflects first availability. You may contact the office regularly to check for cancellations that may allow you to be seen sooner. The [facility] in [place], [place]. Please do not use GPS or mapping apps to locate the office, as they will take you to the wrong location. ) [facility] [Outside] - 12/20/17 10:00 am (The above appointment is with Brooklyn Hi, counselor at [facility]. Your first appointment will be very thorough and the total appointment time will take between two and three hours. You will be completing paperwork, meeting with a counselor and a nurse, and developing a treatment plan. You will receive follow- up appointments for on-going services , which could include community support, mental health and substance abuse counseling, groups/partial hospitalization programming, medication assisted treatment, and psychiatric medication management. Please bring the following with you to your first visit to the clinic: 1) proof of household income (two consecutive pay stubs, social security award letter, bank statement, statement letter from [facility], child support statement, IRS 1040 or W2 form, or a statement from the person who financially supports you stating they help provide for your basic needs), 2) proof of residency (drivers license, a piece of mail showing your address, a statement from person you live with verifying you live at their address), 3) your social security card, 4) photo ID, and 5) your insurance card (if you have commercial insurance you must call to obtain a prior authorization number before you arrive to your first appointment). If you do not bring these items, it is possible that you may not be seen. ) Psychiatry Exam - Constitutional Vitals: Temp Pulse Resp BP Pulse Ox 98.9 F 109 16 135/95 97 12/19/17 09:00 12/19/17 09:00 12/19/17 09:00 12/19/17 09:00 12/06/17 21:25 General appearance: age & developmentally appropriate, well-groomed, thin - Musculoskeletal Gait: brisk Station: shaky Strength & Tone: normal for patient - Psychiatric Patient Orientation: Yes Person, Yes Time, Yes Place Level of alertness: Alert Behavior: calm Psychomotor activity: Normal Eye Contact: Maintains Eye Contact Mood Description: Euthymic/stable, Expansive Affect description: full range Speech Volume: Normal Speech pattern: rambling Language & Vocabulary: consistent with education Thought Process: Intact Thought Content: Yes Intact Perceptual Disturbances: No Auditory hallucinations, No Visual hallucinations Attention Span Ability: Capable of Sustained Attention Memory Description: Grossly Intact Patient Reliability: Questionable Historian Fund of knowledge: Yes average Intelligence Estimate: Average Judgment: Fair Insight: Partial
[2017-12-19] MEDS: Acetaminophen 325 MG TABLET PO PRN ×2 (12:38→19:12)
[2017-12-19] MEDS: Benzocaine 20% 9 GM GEL..GRAM. TP PRN (19:13)
[2017-12-19] MEDS: OLANZapine 10 MG TAB.RAPDIS PO SCH (21:14)
[2017-12-19] MEDS: traZODone 50 MG TABLET PO PRN (21:14)
[2017-12-19] MEDS: hydrOXYzine pamoate 25 MG CAPSULE PO PRN (23:40)
--- NOTE | 2017-12-20 08:29 | Discharge Summary ---
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 Status: Resolved (3) Patient's noncompliance with other medical treatment and regimen Status: Chronic (4) Drug-induced psychotic disorder Status: Resolved Qualifiers: Complication of substance-induced condition: with delusions Qualified Code( s): F19.950 - Other psychoactive substance use, unspecified with 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 Status: Acute (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 Status: Acute Medications - Discharge Medications Prescriptions: Fluticasone Propionate Nasal [Flonase] 50 mcg NS DAILY 30 Days #1 bottle OLANZapine [Zyprexa Zydis] 20 mg PO HS 30 Days #60 tab Paliperidone [Invega] 6 mg PO DAILY 14 Days #14 tab.er.[email or web address] Paliperidone Palmitate [Invega Sustenna] 234 mg IM ONCE 1 Days #1 syringe Topiramate [Topamax] 25 mg PO BID 30 Days #60 tablet Fluticasone Propionate Nasal [Flonase] 50 mcg NS DAILY 30 Days #1 bottle [Rx] OLANZapine [Zyprexa Zydis] 20 mg PO HS 30 Days #60 tab 12/20/17 [Rx] Paliperidone Palmitate [Invega Sustenna] 234 mg IM ONCE 1 Days #1 syringe [Rx] Paliperidone [Invega] 6 mg PO DAILY 14 Days #14 tab.er.[email or web address] 12/20/17 [Rx] Topiramate [Topamax] 25 mg PO BID 30 Days #60 tablet 12/20/17 [Rx] 3 Allergy/AdvReac Type Severity Reaction Status Date / Time No Known Allergies Allergy Verified 11/02/15 22:18 Provider Date of admission: 12/06/17 22:44 Primary care physician: PCP NONE Discharging clinician: Darion Vuong Psychiatry Exam - Constitutional Vitals: Temp Pulse Resp BP Pulse Ox 98.6 F 87 18 138/99 97 12/19/17 20:45 12/19/17 20:45 12/19/17 20:45 12/19/17 20:45 12/06/17 21:25 General appearance: age & developmentally appropriate, thin - Musculoskeletal Gait: normal Station: other Strength & Tone: normal for patient - Psychiatric Patient Orientation: Yes Person, Yes Time, Yes Place Level of alertness: Alert Behavior: calm Psychomotor activity: Abnormal movements Eye Contact: Maintains Eye Contact Mood Description: Elevated Affect description: congruent with mood Speech Volume: Normal Speech pattern: normal rate Language & Vocabulary: consistent with education Thought Process: Intact Thought Content: Yes Intact Perceptual Disturbances: Yes Reacting to internal stimuli Attention Span Ability: Capable of Focused Attention Memory Description: Grossly Intact Patient Reliability: Questionable Historian Fund of knowledge: Yes average Judgment: Fair Insight: Partial Hospital Course Hospital course: Mr. Gould is a 27 year old male ID the patient is a 27-year-old white male. The patient was admitted on December 062018. He had excited catatonia. He had some bizarre behavior including grandiosity and delusions. Chief complaint I was just praising the [place]. History of present illness. The patient had a long hospital course and the reader is referred to the admission note and progress notes. The patient was placed on an involuntary hold shortly after admission because he had psychomotor agitation and excitement echolalia and echopraxia posturing verbigeration palilalia grandiose delusions. With this he had autonomic disturbances including tachycardia. The patient was treated with a variety of medicines. Initially he required emergency medicines Geodon and Ativan. He was later able to take oral Ativan or lorazepam and improved. During the hospital course the patient was placed on long-acting paliperidone however he continued to need antipsychotics including olanzapine. The patient had a involuntary hospitalization and forced medication probate order from the [facility] court on 12/18/2017. The patient had agreed to long-acting haloperidol injections. Efforts were made to stabilize his medicines prior to discharge. Because the patient had a history of substance abuse Ativan was tapered and discontinued the patient remained on to other Agents that may be helpful for catatonia gabapentin and topiramate. This patient requires to antipsychotics for his continued stabilization and follow-up at the local mental Health Center. Even at the time of discharge the patient had some echopraxia some echolalia increased psychomotor activity and slightly disinhibited behavior he was advised to avoid drugs of abuse and alcohol as it may interact with his medications. The patient had a history of noncompliance previously did not follow up family meeting was held prior to discharge. The patient improved and no longer exhibited psychosis although he did have some of the residual catatonic signs listed above. Time spent discussing smoking cessation with patient: 3 to 10 minutes Does patient wish to continue nicotine replacement upon disc: No - Time Spent with Patient Total time spent providing and/or coordinating discharge services: Less than 30 minutes Assessment and Plan - Patient/Caregiver Discharge Instructions Activity: resume usual activities as tolerated, return to work Diet: regular diet Additional Instructions: Patient has been started on Invega Sustenna. Dose 234mg administration date of 12/12/2017. Dose 156mg administration date of 12/17/2017. Dose 234mg due on . You will have the medication for the next injection with you when you leave the hospital. Remember to take that with you to your 01/14/2018 psychiatry appointment so the nurse can give you the injection in the office. - Follow up Plan Follow up with: [facility] [Outside] - 01/14/18 10:40 am (The above appointment is with Dr. Lin for outpatient psychiatric assessment and medication management services. Please bring your Invega Sustenna that was sent to your pharmacy with you to this appointment so your injection may be given by the nurse in Dr. Lin's office. Please arrive 10 minutes early to complete the check-in process. Please bring your insurance card (or [facility] award letter) and photo ID. If you are unable to keep this appointment, 24 hour business notice of cancellation is expected. If you miss your new patient appointment with any provider without providing appropriate notice, you cannot be re-scheduled for that service. The above appointment(s) reflects first availability. You may contact the office regularly to check for cancellations that may allow you to be seen sooner. The [facility] is the 1st building behind [facility] in [place], [place]. Please do not use GPS or mapping apps to locate the office, as they will take you to the wrong location. ) [facility] [Outside] - 12/20/17 10:00 am (The above appointment is with Brooklyn Hi, counselor at [facility]. Your first appointment will be very thorough and the total appointment time will take between two and three hours. You will be completing paperwork, meeting with a counselor and a nurse, and developing a treatment plan. You will receive follow- up appointments for on-going services , which could include community support, mental health and substance abuse counseling, groups/partial hospitalization programming, medication assisted treatment, and psychiatric medication management. Please bring the following with you to your first visit to the clinic: 1) proof of household income (two consecutive pay stubs, social security award letter, bank statement, statement letter from [facility], child support statement, IRS 1040 or W2 form, or a statement from the person who financially supports you stating they help provide for your basic needs), 2) proof of residency (drivers license, a piece of mail showing your address, a statement from person you live with verifying you live at their address), 3) your social security card, 4) photo ID, and 5) your insurance card (if you have commercial insurance you must call to obtain a prior authorization number before you arrive to your first appointment). If you do not bring these items, it is possible that you may not be seen. ) Functional capacity at discharge: independent ambulation Overall status at discharge: Stable Disposition: Home, Self-Care Quality - Multiple Antipsychotics Patient discharged on 2 or more antipsychotic medications: Yes - Justification Documentation of: Other justification (This patient continues to have features of catatonia in spite of 2 antipsychotics prior to discharge olanzapine needed to be increased to help with the patient's stability. In order for the patient to be discharged he requires to antipsychotics at the time discharge on an outpatient basis he can be further evaluated for monotherapy. However the patient has a history of noncompliance and oral and injectable forms of antipsychotics were given) Procedures - Procedures Procedures: Medication Management, Crisis Stabilization, Supportive Therapy, Group Therapy, Psychoeducational Therapy
[2017-12-20] MEDS: Fluticasone Propionate Nasal 50 MCG/SPRAY BOTTLE NS SCH (08:44)
[2017-12-20] MEDS: Topiramate 25 MG TABLET PO SCH (08:44)
[2017-12-20 09:09] VITALS: BP 134/97
== END 2017-12-20 09:55 | disposition home or self-care (01) | DRG 776 ==
LOC: EMEROOARM 12:14 → 1ANU 22:44
PROVIDERS: ADMIT Psychiatry & Neurology Forensic Psychiatry; ATTEND Psychiatry & Neurology Forensic Psychiatry

== ENCOUNTER 2019-08-18 16:21 | Inpatient (IN) ==
[2019-08-18] MEDS ORDERED: Haloperidol Lactate 5 MG/ML VIAL IM ONE (16:29)
[2019-08-18] MEDS ORDERED: *HR* LORazepam 2 MG/ML VIAL IM ONE (16:29)
[2019-08-18 17:37] LABS: Basophils % 0.3 %; Eosinophils % 0.4 %; Hematocrit 42.2 % (37.5-50.1); Hemoglobin 14.9 g/dL (12.9-16.9); Immature Granulocytes % 0.2 % (0-4); Lymphocytes # 1.6 K/mcL (0.6-4.6); Lymphocytes % 16.9 %; Mean Corpuscular HGB Conc 35.3 g/dL (31.6-35.5); Mean Corpuscular Hemoglobin 30.9 pg (28.0-33.3); Mean Corpuscular Volume 87.6 fL (83.0-100.0); Mean Platelet Volume 9.4 fL (9.4-12.4); Monocytes # 0.7 K/mcL (0.0-1.3); Monocytes % 7.5 %; Platelet Count 377 K/mcL (140-400); Red Blood Count 4.82 M/mcL (4.19-5.50); Red Cell Distribution Width 11.6 % (11.5-14.5); Segmented Neutrophils % 74.7 %; White Blood Count 9.4 K/mcL (4.3-11.1)
[2019-08-18 17:52] LABS: Bilirubin,Urine Small (Negative); Blood,Urine Negative (Negative); Clarity,Urine Clear (Clear); Color,Urine Yellow (Yellow); Glucose,Urine (UA) Normal (Normal); Ketones,Urine Trace mg/dL (Negative); Leukocyte Esterase,Urine Negative (Negative); Nitrite,Urine Negative (Negative); Protein,Urine 30 mg/dL (Neg-Trace); Specific Gravity,Urine > 1.030 (1.010-1.025); Urobilinogen,Urine Normal (Normal)
[2019-08-18 17:54] LABS: Bacteria,Urine None Seen per hpf (None-Few); Hyaline Casts,Urine None Seen per lpf (None-Few); RBC,Urine 0-3 per hpf (0-3); Squamous Epithelial Cell,Urine Many per lpf (None-Few); WBC,Urine 0-3 per hpf (0-3)
[2019-08-18 17:57] LABS: Acetaminophen < 10 mcg/mL (10-20); BUN/Creatinine Ratio 23 (6-26); Blood Urea Nitrogen 19 mg/dL (6-20); Calcium 9.8 mg/dL (8.6-10.3); Carbon Dioxide 26 mEq/L (23-29); Chloride 108 mEq/L (98-107); Chol/HDL Ratio 3.5 (0-4.9); Cholesterol 130 mg/dL (< 200); Ethanol < 10 mg/dL (Less than 10); Glucose 137 mg/dL (70-105); HDL Cholesterol 37 mg/dL (40-59); LDL Cholesterol,Calculated 75 mg/dL (0-99); Osmolality,Calculated 296 (280-300); Potassium 3.6 mEq/L (3.5-5.1); Salicylate < 2.5 mg/dL (15.0-30.0); Sodium 141 mEq/L (136-145); Triglycerides 92 mg/dL (< 150); eGFR For African Americans > 60 (> 60); eGFR For Non-African Americans > 60 (> 60)
[2019-08-18 18:03] LABS: Amphetamine Screen,Urine Negative ng/mL (Cutoff=1000); Barbiturate Screen,Urine Negative ng/mL (Cutoff=200); Benzodiazepines Screen,Urine Negative ng/mL (Cutoff=200); Cannabinoid Screen,Urine Negative ng/mL (Cutoff = 50); Cocaine Screen,Urine Negative ng/mL (Cutoff= 300); Opiate Screen,Urine Negative ng/mL (Cutoff=300); Phencyclidine Screen,Urine Negative ng/mL (Cutoff=25)
[2019-08-18 18:07] LABS: Estimated Average Glucose 105 mg/dl
[2019-08-18 18:09] LABS: Thyroid Stimulating Hormone 1.659 mcIU/mL (0.340-5.600)
[2019-08-18] MEDS ORDERED: MOM Conc 10 ML UD.LIQ PO PRN (19:06)
[2019-08-18] MEDS ORDERED: Acetaminophen 325 MG TABLET PO PRN (19:06)
[2019-08-18] MEDS ORDERED: Mag Hydrox/Al Hydrox/Simeth 30 ML UDC PO PRN (19:06)
[2019-08-18] MEDS ORDERED: traZODone 50 MG TABLET PO PRN (19:06)
[2019-08-18] MEDS: OLANZapine 10 MG TAB.RAPDIS PO SCH ×2 (19:11→20:34)
[2019-08-19] MEDS: haloperidoL 5 MG TABLET PO PRN ×2 (08:26→21:42)
[2019-08-19] MEDS: *HR* LORazepam 1 MG TABLET PO PRN ×2 (08:26→21:42)
[2019-08-19] MEDS: OLANZapine 10 MG TAB.RAPDIS PO SCH (20:13)
[2019-08-19] MEDS: hydrOXYzine pamoate 25 MG CAPSULE PO PRN (22:40)
[2019-08-20] MEDS ORDERED: chlorproMAZINE 25 MG TABLET PO PRN (01:45)
[2019-08-20] MEDS: *HR* LORazepam 1 MG TABLET PO PRN (18:27)
[2019-08-20] MEDS: haloperidoL 5 MG TABLET PO PRN (18:27)
[2019-08-20] MEDS: OLANZapine 10 MG TAB.RAPDIS PO SCH (20:22)
[2019-08-21] MEDS: *HR* LORazepam 2 MG/ML VIAL IM PRN ×2 (04:25→09:56)
[2019-08-21] MEDS: Haloperidol Lactate 5 MG/ML VIAL IM PRN ×2 (04:25→09:56)
[2019-08-21] MEDS: OLANZapine 10 MG TAB.RAPDIS PO SCH (22:00)
[2019-08-22] MEDS: hydrOXYzine pamoate 25 MG CAPSULE PO PRN (01:17)
[2019-08-22] MEDS ORDERED: Neosporin OINT 1 APPL PACKET TP PRN (16:10)
[2019-08-23] MEDS: hydrOXYzine pamoate 25 MG CAPSULE PO PRN (01:55)
[2019-08-23] MEDS: *HR* LORazepam 2 MG/ML VIAL IM PRN (05:20)
[2019-08-23] MEDS: Haloperidol Lactate 5 MG/ML VIAL IM PRN (05:20)
[2019-08-24] MEDS: haloperidoL 5 MG TABLET PO PRN (00:26)
[2019-08-24] MEDS: *HR* LORazepam 1 MG TABLET PO PRN (00:26)
[2019-08-24] MEDS: hydrOXYzine pamoate 25 MG CAPSULE PO PRN (02:05)
[2019-08-25 08:06] VITALS: BP 125/86
[2019-08-25] MEDS ORDERED: Paliperidone Palmitate [Invega Sustenna] 234 MG IM SCH (09:45)
== END 2019-08-25 11:30 | disposition home or self-care (01) | DRG 753 ==
LOC: EMEROOARM 16:21 → SUATTDRO 18:42 → 1ANU 18:42
PROVIDERS: ADMIT Psychiatry & Neurology Psychiatry; ATTEND Psychiatry & Neurology Psychiatry

== ENCOUNTER 2020-06-04 12:36 | Observation (INO) ==
[2020-06-04 13:32] LABS: Basophils % 0.3 %; Eosinophils % 0.1 %; Hematocrit 46.8 % (37.5-50.1); Hemoglobin 16.5 g/dL (12.9-16.9); Immature Granulocytes % 0.4 % (0-4); Lymphocytes # 1.8 K/mcL (0.6-4.6); Lymphocytes % 11.9 %; Mean Corpuscular HGB Conc 35.3 g/dL (31.6-35.5); Mean Corpuscular Hemoglobin 30.6 pg (28.0-33.3); Mean Corpuscular Volume 86.8 fL (83.0-100.0); Mean Platelet Volume 9.3 fL (9.4-12.4); Monocytes # 1.2 K/mcL (0.0-1.3); Neutrophils # 12.1 K/mcL (1.6-8.9); Platelet Count 394 K/mcL (140-400); Red Blood Count 5.39 M/mcL (4.19-5.50); Red Cell Distribution Width 12.5 % (11.5-14.5); Segmented Neutrophils % 79.3 %; White Blood Count 15.2 K/mcL (4.3-11.1)
[2020-06-04 13:38] LABS: Acetaminophen < 10 mcg/mL (10-20); BUN/Creatinine Ratio 33 (6-26); Blood Urea Nitrogen 53 mg/dL (6-20); Calcium 9.7 mg/dL (8.6-10.3); Carbon Dioxide 22 mEq/L (23-29); Chloride 106 mEq/L (98-107); Ethanol < 10 mg/dL (Less than 10); Glucose 142 mg/dL (70-105); Osmolality,Calculated 307 (280-300); Potassium 3.7 mEq/L (3.5-5.1); Salicylate < 2.5 mg/dL (15.0-30.0); Sodium 140 mEq/L (136-145); eGFR For African Americans > 60 (> 60); eGFR For Non-African Americans 50 (> 60)
[2020-06-04 13:39] LABS: Bacteria,Urine Few per hpf (None-Few); Bilirubin,Urine Negative (Negative); Blood,Urine Small (Negative); Clarity,Urine Turbid (Clear); Color,Urine Yellow (Yellow); Glucose,Urine (UA) Normal (Normal); Hyaline Casts,Urine Many per lpf (None Seen); Ketones,Urine Trace mg/dL (Negative); Leukocyte Esterase,Urine Negative (Negative); Mucus,Urine Few per lpf (None-Few); Nitrite,Urine Negative (Negative); PH,Urine 5.5 pH Units (5.0-8.0); Protein,Urine 70 mg/dL (Neg-Trace); Specific Gravity,Urine 1.026 (1.010-1.025); Urobilinogen,Urine Normal (Normal); WBC,Urine 15-30 per hpf (0-3)
[2020-06-04 13:48] LABS: Amphetamine Screen,Urine Positive ng/mL (Cutoff=1000); Barbiturate Screen,Urine Negative ng/mL (Cutoff=200); Benzodiazepines Screen,Urine Negative ng/mL (Cutoff=200); Cannabinoid Screen,Urine Negative ng/mL (Cutoff = 50); Cocaine Screen,Urine Negative ng/mL (Cutoff= 300); Opiate Screen,Urine Negative ng/mL (Cutoff=300); Phencyclidine Screen,Urine Negative ng/mL (Cutoff=25)
[2020-06-04] MEDS ORDERED: 0.9 % Sodium Chloride 1,000 ML IVC ONE (15:56)
[2020-06-04] MEDS ORDERED: *HR* LORazepam 2 MG/ML VIAL IVP ONE ×2 (15:57→18:54)
[2020-06-04 17:03] LABS: Creatine Kinase 468 Units/L (30-223)
[2020-06-04] MEDS ORDERED: Haloperidol Lactate 5 MG/ML VIAL IVP ONE (19:12)
[2020-06-04] MEDS ORDERED: Haloperidol Lactate 5 MG/ML VIAL IM ONE (19:38)
[2020-06-04] MEDS ORDERED: Naloxone 0.4 MG/ML INJ IVP PRN (20:37)
[2020-06-04] MEDS ORDERED: Ondansetron 4 MG/2 ML VIAL IVP PRN (20:37)
[2020-06-04] MEDS: 0.9 % Sodium Chloride 1,000 ML IVC SCH (21:31)
[2020-06-05 03:46] LABS: INR 1.1; Prothrombin Time 12.7 Seconds (9.4-12.1)
[2020-06-05 03:48] LABS: Activated Partial Thrombo Time 26.4 Seconds (26.0-36.0)
[2020-06-05 03:56] LABS: Hematocrit 43.6 % (37.5-50.1); Hemoglobin 14.8 g/dL (12.9-16.9); Mean Corpuscular HGB Conc 33.9 g/dL (31.6-35.5); Mean Corpuscular Hemoglobin 30.6 pg (28.0-33.3); Mean Corpuscular Volume 90.1 fL (83.0-100.0); Mean Platelet Volume 9.4 fL (9.4-12.4); Platelet Count 314 K/mcL (140-400); Red Blood Count 4.84 M/mcL (4.19-5.50); Red Cell Distribution Width 12.9 % (11.5-14.5); White Blood Count 9.4 K/mcL (4.3-11.1)
[2020-06-05 04:05] LABS: BUN/Creatinine Ratio 40 (6-26); Blood Urea Nitrogen 35 mg/dL (6-20); Calcium 9.4 mg/dL (8.6-10.3); Carbon Dioxide 26 mEq/L (23-29); Chloride 108 mEq/L (98-107); Chol/HDL Ratio 3.7 (0-4.9); Cholesterol 152 mg/dL (< 200); Glucose 98 mg/dL (70-105); HDL Cholesterol 41 mg/dL (40-59); LDL Cholesterol,Calculated 98 mg/dL (< 100); Magnesium 2.5 mg/dL (1.6-2.6); Osmolality,Calculated 300 (280-300); Potassium 4.2 mEq/L (3.5-5.1); Sodium 141 mEq/L (136-145); Triglycerides 67 mg/dL (< 150); eGFR For African Americans > 60 (> 60); eGFR For Non-African Americans > 60 (> 60)
[2020-06-05] MEDS: 0.9 % Sodium Chloride 1,000 ML IVC SCH (05:04)
[2020-06-05] MEDS ORDERED: Cholecalciferol (D-3) 1,000 UNIT (25MCG) TABLET PO SCH (09:00)
[2020-06-05 09:39] LABS: Creatine Kinase 454 Units/L (30-223)
[2020-06-05 09:40] LABS: Troponin I < 0.03 ng/mL (< 0.04)
[2020-06-05 11:31] VITALS: BP 127/78
[2020-06-05] MEDS ORDERED: Haloperidol Lactate 5 MG/ML VIAL IM ONE (12:40)
[2020-06-05] MEDS ORDERED: *HR* LORazepam 2 MG/ML VIAL IM STA (17:40)
[2020-06-05 19:02] LABS: Adenovirus Not Detected (Not Detect); Bordetella Pertussis Not Detected (Not Detect); Chlamydophila pneumoniae Not Detected (Not Detect); Coronavirus 229E Not Detected (Not Detect); Coronavirus HKU1 Not Detected (Not Detect); Coronavirus NL63 Not Detected (Not Detect); Coronavirus OC43 Not Detected (Not Detect); Human Metapneumovirus Not Detected (Not Detect); Human Rhinovirus/Enterovirus DETECTED (Not Detect); Influenza A Subtype 2009 H1 Not Detected (Not Detect); Influenza B Not Detected (Not Detect); Mycoplasma pneumoniae Not Detected (Not Detect); Parainfluenza Virus 1 Not Detected (Not Detect); Parainfluenza Virus 2 Not Detected (Not Detect); Parainfluenza Virus 3 Not Detected (Not Detect); Parainfluenza Virus 4 Not Detected (Not Detect); Respiratory Syncytial Virus Not Detected (Not Detect); SARS-CoV-2 Not Detected (Not Detect)
== END 2020-06-05 21:59 ==
LOC: 3BNU 12:36 → EMEROOARM 12:36 → SUATTDRO 18:12 → 3BNU 18:33
PROVIDERS: ADMIT Internal Medicine; ATTEND Family Medicine

== ENCOUNTER 2020-06-05 22:02 | Inpatient (IN) ==
[2020-06-05] MEDS ORDERED: hydrOXYzine pamoate 25 MG CAPSULE PO PRN (22:14)
[2020-06-05] MEDS ORDERED: *HR* LORazepam 2 MG/ML VIAL IM PRN (22:14)
[2020-06-05] MEDS ORDERED: Acetaminophen 325 MG TABLET PO PRN (22:14)
[2020-06-05] MEDS ORDERED: Mag Hydrox/Al Hydrox/Simeth 30 ML UDC PO PRN (22:14)
[2020-06-05] MEDS ORDERED: Haloperidol Lactate 5 MG/ML VIAL IM PRN (22:14)
[2020-06-05] MEDS ORDERED: haloperidoL 5 MG TABLET PO PRN (22:14)
[2020-06-05] MEDS ORDERED: *HR* LORazepam 1 MG TABLET PO PRN (22:14)
[2020-06-05] MEDS ORDERED: MOM Conc 10 ML UD.LIQ PO PRN (22:14)
[2020-06-05] MEDS ORDERED: QUEtiapine Fumarate 100 MG TABLET PO PRN (22:24)
[2020-06-06 00:56] VITALS: BP 132/71
[2020-06-06] MEDS: Nicotine 14 MG PATCH.TD24 TD SCH (18:28)
[2020-06-07] MEDS: Nicotine 14 MG PATCH.TD24 TD SCH (09:37)
[2020-06-07] MEDS ORDERED: PALIPERIDONE PALMITATE 234 MG/1.5 ML SYRINGE IM SCH (11:15)
[2020-06-08] MEDS: Nicotine 14 MG PATCH.TD24 TD SCH (10:08)
== END 2020-06-08 15:35 | disposition home or self-care (01) | DRG 753 ==
LOC: 1ANU 22:02
PROVIDERS: ADMIT Psychiatry & Neurology Forensic Psychiatry; ATTEND Psychiatry & Neurology Forensic Psychiatry

== ENCOUNTER 2021-08-10 14:55 | Inpatient (IN) ==
[2021-08-10 15:49] LABS: Basophils % 0.2 %; Eosinophils # 0.1 K/mcL (0.0-0.6); Eosinophils % 0.4 %; Hematocrit 47.6 % (37.5-50.1); Hemoglobin 16.4 g/dL (12.9-16.9); Immature Granulocytes % 0.5 % (0-4); Lymphocytes # 1.2 K/mcL (0.6-4.6); Mean Corpuscular HGB Conc 34.5 g/dL (31.6-35.5); Mean Corpuscular Hemoglobin 31.1 pg (28.0-33.3); Mean Corpuscular Volume 90.2 fL (83.0-100.0); Mean Platelet Volume 9.6 fL (9.4-12.4); Monocytes # 0.5 K/mcL (0.0-1.3); Monocytes % 3.3 %; Neutrophils # 12.6 K/mcL (1.6-8.9); Platelet Count 334 K/mcL (140-400); Red Blood Count 5.28 M/mcL (4.19-5.50); Red Cell Distribution Width 11.5 % (11.5-14.5); Segmented Neutrophils % 87.6 %; White Blood Count 14.4 K/mcL (4.3-11.1)
[2021-08-10 16:05] LABS: Acetaminophen < 10 mcg/mL (10-20); BUN/Creatinine Ratio 14 (6-26); Blood Urea Nitrogen 11 mg/dL (6-20); Carbon Dioxide 29 mEq/L (23-29); Chloride 101 mEq/L (98-107); Chol/HDL Ratio 2.7 (0-4.9); Cholesterol 147 mg/dL (< 200); Ethanol < 10 mg/dL (Less than 10); Glucose 94 mg/dL (70-105); HDL Cholesterol 55 mg/dL (40-59); LDL Cholesterol,Calculated 81 mg/dL (< 100); Osmolality,Calculated 289 (280-300); Potassium 3.8 mEq/L (3.5-5.1); Salicylate < 2.5 mg/dL (15.0-30.0); Sodium 140 mEq/L (136-145); Triglycerides 55 mg/dL (< 150); eGFR For African Americans > 60 (> 60); eGFR For Non-African Americans > 60 (> 60)
[2021-08-10 16:08] LABS: Bilirubin,Urine Negative (Negative); Blood,Urine Moderate (Negative); Clarity,Urine Clear (Clear); Color,Urine Light-Yellow (Yellow); Glucose,Urine (UA) Normal (Normal); Hyaline Casts,Urine Few per lpf (None Seen); Ketones,Urine 80 mg/dL (Negative); Leukocyte Esterase,Urine Negative (Negative); Mucus,Urine Moderate per lpf (None-Few); Nitrite,Urine Negative (Negative); Protein,Urine Trace mg/dL (Neg-Trace); RBC,Urine 30-50 per hpf (0-3); Specific Gravity,Urine 1.023 (1.010-1.025); Squamous Epithelial Cell,Urine Few per hpf (None-Few); Urobilinogen,Urine Normal (Normal)
[2021-08-10 16:13] LABS: Amphetamine Screen,Urine Positive ng/mL (Cutoff=1000); Barbiturate Screen,Urine Negative ng/mL (Cutoff=200); Benzodiazepines Screen,Urine Negative ng/mL (Cutoff=200); Cannabinoid Screen,Urine Negative ng/mL (Cutoff = 50); Cocaine Screen,Urine Negative ng/mL (Cutoff= 300); Opiate Screen,Urine Negative ng/mL (Cutoff=300); Phencyclidine Screen,Urine Negative ng/mL (Cutoff=25)
[2021-08-10 21:10] LABS: Influenza A PCR Negative (Negative); Influenza B PCR Negative (Negative); Resp. Syncytial Virus PCR Negative (Negative)
[2021-08-10 21:24] LABS: SARS-CoV-2 by PCR (In House) Negative (Negative)
[2021-08-10] MEDS ORDERED: Haloperidol Lactate 5 MG/ML VIAL IM PRN (21:47)
[2021-08-10] MEDS ORDERED: Acetaminophen 325 MG TABLET PO PRN (21:47)
[2021-08-10] MEDS ORDERED: *HR* LORazepam 1 MG TABLET PO PRN (21:47)
[2021-08-10] MEDS ORDERED: *HR* LORazepam 2 MG/ML VIAL IM PRN (21:47)
[2021-08-10] MEDS ORDERED: haloperidoL 5 MG TABLET PO PRN (21:47)
[2021-08-10] MEDS: QUEtiapine Fumarate 25 MG TABLET PO PRN (23:05)
[2021-08-10] MEDS: hydrOXYzine pamoate 25 MG CAPSULE PO PRN (23:05)
[2021-08-11] MEDS ORDERED: Mag Hydrox/Al Hydrox/Simeth 30 ML UDC PO PRN (09:36)
[2021-08-11] MEDS ORDERED: Menthol 1 EACH LOZENGE MM PRN (09:36)
[2021-08-11] MEDS ORDERED: MOM Conc 10 ML UD.LIQ PO PRN (09:36)
[2021-08-11] MEDS ORDERED: Paliperidone Palmitate 234 MG/1.5 ML SYRINGE IM ONE (11:30)
[2021-08-11] MEDS: QUEtiapine Fumarate 25 MG TABLET PO PRN (21:30)
[2021-08-14] MEDS: hydrOXYzine pamoate 25 MG CAPSULE PO PRN (15:14)
[2021-08-14] MEDS: QUEtiapine Fumarate 25 MG TABLET PO PRN (21:47)
[2021-08-16] MEDS: hydrOXYzine pamoate 25 MG CAPSULE PO PRN (11:01)
[2021-08-16] MEDS ORDERED: Paliperidone Palmitate 156 MG/ML SYRINGE IM SCH (11:15)
[2021-08-17] MEDS: Nicotine 21 MG PATCH.TD24 TD SCH (15:57)
[2021-08-17] MEDS: hydrOXYzine pamoate 25 MG CAPSULE PO PRN (18:44)
[2021-08-17] MEDS: QUEtiapine Fumarate 25 MG TABLET PO PRN (20:05)
[2021-08-17 22:02] VITALS: BP 125/89; PULSE 100; TEMP 98; O2SAT 98
[2021-08-18] MEDS: Nicotine 21 MG PATCH.TD24 TD SCH ×2 (09:36→09:42)
[2021-08-18] MEDS: hydrOXYzine pamoate 25 MG CAPSULE PO PRN (12:51)
== END 2021-08-18 19:25 | disposition home or self-care (01) | DRG 750 ==
LOC: EMEROOARM 14:55 → 1ANU 21:35
PROVIDERS: ADMIT Psychiatry & Neurology Psychiatry; ATTEND Psychiatry & Neurology Psychiatry

== ENCOUNTER 2021-08-31 15:41 | Inpatient (IN) ==
[2021-08-31 17:27] LABS: Basophils % 0.5 %; Eosinophils # 0.1 K/mcL (0.0-0.6); Eosinophils % 1.6 %; Hematocrit 42.5 % (37.5-50.1); Hemoglobin 14.6 g/dL (12.9-16.9); Immature Granulocytes % 0.3 % (0-4); Lymphocytes # 1.1 K/mcL (0.6-4.6); Lymphocytes % 17.6 %; Mean Corpuscular HGB Conc 34.4 g/dL (31.6-35.5); Mean Corpuscular Volume 90.2 fL (83.0-100.0); Mean Platelet Volume 9.2 fL (9.4-12.4); Monocytes # 0.4 K/mcL (0.0-1.3); Monocytes % 6.2 %; Neutrophils # 4.6 K/mcL (1.6-8.9); Platelet Count 311 K/mcL (140-400); Red Blood Count 4.71 M/mcL (4.19-5.50); Red Cell Distribution Width 11.8 % (11.5-14.5); Segmented Neutrophils % 73.8 %; White Blood Count 6.3 K/mcL (4.3-11.1)
[2021-08-31 17:39] LABS: Acetaminophen < 10 mcg/mL (10-20); BUN/Creatinine Ratio 19 (6-26); Blood Urea Nitrogen 17 mg/dL (6-20); Calcium 9.4 mg/dL (8.6-10.3); Carbon Dioxide 26 mEq/L (23-29); Chloride 106 mEq/L (98-107); Ethanol < 10 mg/dL (Less than 10); Glucose 112 mg/dL (70-105); Osmolality,Calculated 292 (280-300); Potassium 3.8 mEq/L (3.5-5.1); Salicylate < 2.5 mg/dL (15.0-30.0); Sodium 140 mEq/L (136-145); eGFR For African Americans > 60 (> 60); eGFR For Non-African Americans > 60 (> 60)
[2021-08-31 18:01] LABS: Estimated Average Glucose 105 mg/dl; Hemoglobin A1C 5.3 %
[2021-08-31 20:05] LABS: Bacteria,Urine Few per hpf (None-Few); Bilirubin,Urine Negative (Negative); Blood,Urine Moderate (Negative); Clarity,Urine Clear (Clear); Color,Urine Yellow (Yellow); Glucose,Urine (UA) Normal (Normal); Ketones,Urine Negative (Negative); Leukocyte Esterase,Urine Negative (Negative); Mucus,Urine Moderate per lpf (None-Few); Nitrite,Urine Negative (Negative); Protein,Urine 50 mg/dL (Neg-Trace); RBC,Urine 30-50 per hpf (0-3); Specific Gravity,Urine > 1.030 (1.010-1.025); Squamous Epithelial Cell,Urine Few per hpf (None-Few); Urobilinogen,Urine Normal (Normal)
[2021-08-31 20:09] LABS: Amphetamine Screen,Urine Positive ng/mL (Cutoff=1000); Barbiturate Screen,Urine Negative ng/mL (Cutoff=200); Benzodiazepines Screen,Urine Negative ng/mL (Cutoff=200); Cannabinoid Screen,Urine Negative ng/mL (Cutoff = 50); Cocaine Screen,Urine Negative ng/mL (Cutoff= 300); Opiate Screen,Urine Negative ng/mL (Cutoff=300); Phencyclidine Screen,Urine Negative ng/mL (Cutoff=25)
[2021-08-31 22:56] LABS: Influenza A PCR Negative (Negative); Influenza B PCR Negative (Negative); Resp. Syncytial Virus PCR Negative (Negative)
[2021-08-31 22:57] LABS: SARS-CoV-2 by PCR (In House) Negative (Negative)
[2021-08-31] MEDS ORDERED: haloperidoL 5 MG TABLET PO PRN (23:31)
[2021-08-31] MEDS ORDERED: *HR* LORazepam 2 MG/ML VIAL IM PRN (23:31)
[2021-08-31] MEDS ORDERED: Haloperidol Lactate 5 MG/ML VIAL IM PRN (23:31)
[2021-08-31] MEDS ORDERED: *HR* LORazepam 1 MG TABLET PO PRN (23:31)
[2021-09-01] MEDS: traZODone 50 MG TABLET PO PRN (00:50)
[2021-09-04] MEDS: Nicotine 21 MG PATCH.TD24 TD SCH (14:11)
[2021-09-04] MEDS: traZODone 50 MG TABLET PO PRN (22:13)
[2021-09-05] MEDS: Nicotine 21 MG PATCH.TD24 TD SCH (09:18)
[2021-09-05] MEDS: *HR* LORazepam 1 MG TABLET PO PRN (14:00)
[2021-09-05] MEDS: traZODone 50 MG TABLET PO PRN (21:13)
[2021-09-05 22:05] LABS: Bilirubin,Urine Negative (Negative); Blood,Urine Trace (Negative); Clarity,Urine Clear (Clear); Color,Urine Light-Yellow (Yellow); Glucose,Urine (UA) Normal (Normal); Ketones,Urine Negative (Negative); Leukocyte Esterase,Urine Negative (Negative); Mucus,Urine Few per lpf (None-Few); Nitrite,Urine Negative (Negative); Protein,Urine Trace mg/dL (Neg-Trace); Specific Gravity,Urine > 1.030 (1.010-1.025); Urobilinogen,Urine Normal (Normal); WBC,Urine 0-3 per hpf (0-3)
[2021-09-06] MEDS: Nicotine 21 MG PATCH.TD24 TD SCH (09:16)
[2021-09-06] MEDS: *HR* LORazepam 1 MG TABLET PO PRN ×2 (13:33→21:18)
[2021-09-06] MEDS: Acetaminophen 325 MG TABLET PO PRN (13:37)
[2021-09-06] MEDS: hydrOXYzine pamoate 25 MG CAPSULE PO PRN (21:15)
[2021-09-07] MEDS: traZODone 50 MG TABLET PO PRN (01:03)
[2021-09-07] MEDS: Nicotine 21 MG PATCH.TD24 TD SCH (11:48)
[2021-09-07] MEDS: *HR* LORazepam 1 MG TABLET PO PRN (14:40)
[2021-09-07] MEDS: *HR* LORazepam 1 MG TABLET PO SCH ×2 (16:44→20:59)
[2021-09-08] MEDS: hydrOXYzine pamoate 25 MG CAPSULE PO PRN ×2 (03:16→21:03)
[2021-09-08] MEDS: Acetaminophen 325 MG TABLET PO PRN ×2 (03:16→14:26)
[2021-09-08] MEDS: *HR* LORazepam 1 MG TABLET PO SCH ×3 (14:26→21:03)
[2021-09-08] MEDS: Nicotine 21 MG PATCH.TD24 TD SCH (14:45)
[2021-09-08] MEDS: traZODone 50 MG TABLET PO PRN (21:03)
[2021-09-09] MEDS: *HR* LORazepam 1 MG TABLET PO SCH ×3 (10:10→20:54)
[2021-09-09] MEDS: Nicotine 21 MG PATCH.TD24 TD SCH ×2 (10:11→15:26)
[2021-09-09] MEDS: Acetaminophen 325 MG TABLET PO PRN (15:29)
[2021-09-09] MEDS: hydrOXYzine pamoate 25 MG CAPSULE PO PRN (17:10)
[2021-09-09 19:22] LABS: Amphetamine Screen,Urine Negative ng/mL (Cutoff=1000); Barbiturate Screen,Urine Negative ng/mL (Cutoff=200); Benzodiazepines Screen,Urine Negative ng/mL (Cutoff=200); Cannabinoid Screen,Urine Negative ng/mL (Cutoff = 50); Cocaine Screen,Urine Negative ng/mL (Cutoff= 300); Opiate Screen,Urine Negative ng/mL (Cutoff=300); Phencyclidine Screen,Urine Negative ng/mL (Cutoff=25)
[2021-09-09] MEDS: traZODone 50 MG TABLET PO PRN (20:54)
[2021-09-10] MEDS: Nicotine 21 MG PATCH.TD24 TD SCH (11:29)
[2021-09-10] MEDS: *HR* LORazepam 1 MG TABLET PO SCH ×3 (11:29→20:30)
[2021-09-10] MEDS: Acetaminophen 325 MG TABLET PO PRN (11:33)
[2021-09-10] MEDS: hydrOXYzine pamoate 25 MG CAPSULE PO PRN (18:58)
[2021-09-10] MEDS: traZODone 50 MG TABLET PO PRN (20:29)
[2021-09-11] MEDS: Nicotine 21 MG PATCH.TD24 TD SCH ×2 (08:55→09:09)
[2021-09-11] MEDS: *HR* LORazepam 1 MG TABLET PO SCH (08:56)
[2021-09-11 09:13] VITALS: TEMP 98.3
[2021-09-11] MEDS: hydrOXYzine pamoate 25 MG CAPSULE PO PRN ×2 (12:54→19:06)
[2021-09-11] MEDS: traZODone 50 MG TABLET PO PRN (20:32)
[2021-09-12 10:46] VITALS: BP 119/80; PULSE 93; O2SAT 97
[2021-09-12] MEDS: Nicotine 21 MG PATCH.TD24 TD SCH (10:52)
[2021-09-12] MEDS ORDERED: PALIPERIDONE PALMITATE 156 MG/ML IM ONE (12:00)
[2021-09-14] MEDS ORDERED: Paliperidone Palmitate 156 MG/ML SYRINGE IM ONE (14:00)
== END 2021-09-12 17:15 | disposition home or self-care (01) | DRG 750 ==
LOC: EMEROOARM 15:41 → SUATTDRO 23:11 → 1ANU 23:11
PROVIDERS: ADMIT Psychiatry & Neurology Neurology; ATTEND Psychiatry & Neurology Forensic Psychiatry

== ENCOUNTER 2021-12-02 10:51 | Inpatient (IN) ==
[2021-12-02 12:03] LABS: Basophils % 0.3 %; Eosinophils # 0.1 K/mcL (0.0-0.6); Eosinophils % 0.8 %; Hematocrit 43.7 % (37.5-50.1); Hemoglobin 14.9 g/dL (12.9-16.9); Immature Granulocytes % 0.4 % (0-4); Lymphocytes # 0.8 K/mcL (0.6-4.6); Lymphocytes % 11.5 %; Mean Corpuscular HGB Conc 34.1 g/dL (31.6-35.5); Mean Corpuscular Hemoglobin 30.6 pg (28.0-33.3); Mean Corpuscular Volume 89.7 fL (83.0-100.0); Mean Platelet Volume 9.1 fL (9.4-12.4); Monocytes # 0.3 K/mcL (0.0-1.3); Monocytes % 4.6 %; Neutrophils # 5.9 K/mcL (1.6-8.9); Platelet Count 298 K/mcL (140-400); Red Blood Count 4.87 M/mcL (4.19-5.50); Red Cell Distribution Width 12.6 % (11.5-14.5); Segmented Neutrophils % 82.4 %; White Blood Count 7.2 K/mcL (4.3-11.1)
[2021-12-02 12:26] LABS: Acetaminophen < 10 mcg/mL (10-20); Alanine Aminotransferase 15 Units/L (7-52); Albumin 4.3 g/dL (3.5-5.7); Albumin/Globulin Ratio 1.8 (1.1-2.2); Alkaline Phosphatase 67 Units/L (34-104); Aspartate Amino Transferase 16 Units/L (13-39); BUN/Creatinine Ratio 16 (6-26); Bilirubin,Direct 0.1 mg/dL (0.0-0.2); Bilirubin,Indirect 0.5 mg/dL (0.0-1.0); Bilirubin,Total 0.6 mg/dL (0.3-1.0); Blood Urea Nitrogen 11 mg/dL (6-20); Calcium 9.1 mg/dL (8.6-10.3); Carbon Dioxide 26 mEq/L (23-29); Chloride 105 mEq/L (98-107); Chol/HDL Ratio 4.2 (0-4.9); Cholesterol 157 mg/dL (< 200); Ethanol 23 mg/dL (Less than 10); Globulin 2.4 g/dL (2.4-3.5); Glucose 130 mg/dL (70-105); HDL Cholesterol 37 mg/dL (40-59); LDL Cholesterol,Calculated 103 mg/dL (< 100); Osmolality,Calculated 287 (280-300); Potassium 3.3 mEq/L (3.5-5.1); Salicylate < 2.5 mg/dL (15.0-30.0); Sodium 138 mEq/L (136-145); Total Protein 6.7 g/dL (6.4-8.9); Triglycerides 85 mg/dL (< 150)
[2021-12-02 12:38] LABS: Thyroid Stimulating Hormone 1.329 mcIU/mL (0.340-5.600)
[2021-12-02 13:18] LABS: Estimated Average Glucose 100 mg/dl; Hemoglobin A1C 5.1 %
[2021-12-02 13:43] LABS: Bilirubin,Urine Negative (Negative); Blood,Urine Moderate (Negative); Clarity,Urine Clear (Clear); Color,Urine Yellow (Yellow); Glucose,Urine (UA) Normal (Normal); Hyaline Casts,Urine Few per lpf (None Seen); Ketones,Urine Negative (Negative); Leukocyte Esterase,Urine Negative (Negative); Mucus,Urine Many per lpf (None-Few); Nitrite,Urine Negative (Negative); PH,Urine 6.5 pH Units (5.0-8.0); Protein,Urine Trace mg/dL (Neg-Trace); RBC,Urine 15-30 per hpf (0-3); Specific Gravity,Urine 1.024 (1.010-1.025); Squamous Epithelial Cell,Urine Few per hpf (None-Few); Urobilinogen,Urine Normal (Normal)
[2021-12-02 15:14] LABS: Amphetamine Screen,Urine Positive ng/mL (Cutoff=1000); Barbiturate Screen,Urine Negative ng/mL (Cutoff=200); Benzodiazepines Screen,Urine Negative ng/mL (Cutoff=200); Cannabinoid Screen,Urine Negative ng/mL (Cutoff = 50); Cocaine Screen,Urine Negative ng/mL (Cutoff= 300); Opiate Screen,Urine Negative ng/mL (Cutoff=300); Phencyclidine Screen,Urine Negative ng/mL (Cutoff=25)
[2021-12-02 17:18] LABS: Influenza A PCR Negative (Negative); Influenza B PCR Negative (Negative); Resp. Syncytial Virus PCR Negative (Negative)
[2021-12-02 17:31] LABS: SARS-CoV-2 by PCR (In House) Negative (Negative)
[2021-12-02] MEDS ORDERED: haloperidoL 5 MG TABLET PO PRN (17:35)
[2021-12-02] MEDS ORDERED: *HR* LORazepam 2 MG/ML VIAL IM PRN (17:35)
[2021-12-02] MEDS ORDERED: *HR* LORazepam 1 MG TABLET PO PRN (17:35)
[2021-12-02] MEDS ORDERED: Haloperidol Lactate 5 MG/ML VIAL IM PRN (17:35)
[2021-12-02] MEDS ORDERED: hydrOXYzine pamoate 25 MG CAPSULE PO PRN (17:35)
[2021-12-02] MEDS ORDERED: Acetaminophen 325 MG TABLET PO PRN (17:35)
[2021-12-03] MEDS ORDERED: Paliperidone Palmitate 234 MG/1.5 ML SYRINGE IM ONE (12:00)
[2021-12-03] MEDS: QUEtiapine Fumarate 25 MG TABLET PO PRN (20:42)
[2021-12-04] MEDS: QUEtiapine Fumarate 25 MG TABLET PO PRN (21:41)
[2021-12-04 22:46] VITALS: BP 113/75; PULSE 69; TEMP 97.8; O2SAT 96
== END 2021-12-05 16:05 | disposition other institution (70) | DRG 751 ==
LOC: EMEROOARM 10:51 → 1ANU 17:38
PROVIDERS: ADMIT Psychiatry & Neurology Psychiatry; ATTEND Psychiatry & Neurology Psychiatry